=== PATIENT | male | born 1955 | race Caucasian/White ===

== ENCOUNTER 2018-12-23 13:32 | Inpatient (IN) ==
--- NOTE | 2018-12-23 14:35 | Emergency Department Note ---
Disposition Clinical Impression: Anasarca, Acute on chronic diastolic (congestive) heart failure Disposition: Admitted As Inpatient Condition: Fair General Adult HPI - General Chief complaint: ED General Medical Stated complaint: CHF/SOB/CP sent from Internal Med. Time Seen by Provider: 12/23/18 13:56 Source: patient, family Nursing Notes Reviewed: Yes Vital Signs Reviewed: Yes - History of Present Illness HPI Narrative: 63-year-old male who presents the emergency department with complaints of peripheral edema. The patient states this has been ongoing for the last several weeks. He states he was released from rehabilitation and has been taking his water pill and fluid restriction as indicated but has gained approximately 14 pounds in the last couple of months. He states he has significant swelling in his legs, abdomen and feels increasingly more short of breath. He has orthopnea but is otherwise been eating and drinking well. He denies any fever, chest pain, abdominal pain, nausea, vomiting, dysuria, hematuria. Pain Scale: 3 - Related Data Home Medications Medication Instructions Recorded Confirmed Aspirin Enteric Coated [Aspirin EC] 81 mg PO DAILY PRN 03/12/16 12/23/18 Cyclobenzaprine HCl 5 mg PO TID PRN 03/12/16 12/23/18 Nitroglycerin 0.4 mg SL AD PRN 03/12/16 12/23/18 Atorvastatin [Lipitor] 40 mg PO HS 03/15/18 12/23/18 Cilostazol [Pletal] 100 mg PO BID 03/15/18 12/23/18 Lisinopril [Zestril] 20 mg PO DAILY 03/15/18 12/23/18 Isosorbide MONOnitrate (24 HR) 30 mg PO DAILY 11/18/18 12/23/18 [Imdur] FLUoxetine HCl [Sarafem] 20 mg PO DAILY 12/23/18 12/23/18 Previous Rx's Medication Instructions Recorded Furosemide [Lasix] 40 mg PO BID #60 tablet 11/20/18 Metoprolol [Lopressor] 25 mg PO BID #60 tablet 11/20/18 Allergies Allergy/AdvReac Type Severity Reaction Status Date / Time No Known Allergies Allergy Verified 12/23/18 17:27 Review of Systems: ROS per history of present illness, all other systems reviewed and negative or normal. All systems ED: reviewed and negative except as stated. Review of Systems: As Per HPI Past Medical History - Past Medical History Medical history: Reports: aortic aneurysm, atrial fibrillation, CHF, COPD, coronary artery disease, CVA, diabetes, GERD, hyperlipidemia, hypertension, myocardial infarction, peripheral artery disease, SVT, other Surgical history: Reports: angioplasty/stent, appendectomy, knee replacement, orthopedic, other, pacemaker/AICD, other Psychiatric history: Reports: no psych history - Social History Smoking Status: Former smoker Smokeless Tobacco Status: No Alcohol use: Reports: rarely Drug use: Reports: none Physical Exam General: Conversant. No apparent distress. Follow commands. Appears stated age. Neck: No JVD. Trachea midline. Neck supple. Eyes: PERRL. No scleral icterus. HENT: Normocephalic and atraumatic. Moist mucus membranes. Cardiovascular: Regular rate and rhythm. Normal S1 and S2. No murmurs apprecia jermaine. Normal capillary refill. Extremities well perfused with 2+ distal pulses bilaterally. No edema. Pulmonary: Crackles in bilateral bases. Not in respiratory distress. Speaks in full sentences. Abdomen: Soft,distended abdomen with midline healed incision. Neuro: Alert and oriented x3. No slurred speech. No focal deficits noted. Skin: No rashes noted on visualized skin. Musculoskeletal: No bony abnormalities visualized. Moves all extremities. Psych: Normal mood. Pleasant. Makes appropriate eye contact. - General General appearance: alert Course Vital Signs Temperature 98.4 F 12/23/18 13:41 Pulse Rate 69 12/23/18 13:41 Respiratory Rate 22 12/23/18 13:41 Blood Pressure 96/60 12/23/18 13:41 O2 Sat by Pulse Oximetry 85 12/23/18 13:41 Temperature 97.2 F L 12/23/18 23:16 Pulse Rate 68 12/23/18 23:16 Respiratory Rate 16 12/23/18 23:16 Blood Pressure 114/61 12/23/18 23:16 O2 Sat by Pulse Oximetry 99 12/23/18 23:16 Oxygen Delivery Oxygen Delivery Nasal Cannula Medical Decision Making - [facility] Narrative Medical decision making narrative: 63-year-old male with history of CHF who presents emergency Department with complaints of peripheral edema and abdominal distention. The patient states he has gained significant weight over the past month. On arrival he does have abdominal distention and edema with significant peripheral edema. His vital signs are otherwise stable. He is not requiring supplemental oxygen and above his baseline. Did obtain hemoglobin and hematocrit, PTT/INR and BMP and troponin. He does have baseline anemia, not significantly changed today. There is no elevation in his troponin. Chest x-ray shows pulmonary edema. The patient was intermittently hypotensive but improved to systolic in the 110s without significant intervention. The patient was given 20 mg IV Lasix for suspected CHF exacerbation. Discussed case with on-call hospitalist Dr. Addison who agrees with plan for admission and accepts the patient to the inpatient service. Patient agrees with and understands course of treatment plan including plan for admission. All questions answered. - Medical Records Medical records reviewed: Yes I reviewed the patient's medical records. - Lab Data Lab results reviewed: Yes I reviewed the patient's lab results. Result diagrams: 12/23/18 14:22 12/23/18 14:06 Lab Results 12/23/18 12/23/18 12/23/18 Range/Units 14:06 14:22 15:50 Hgb 8.8 L (12.9-16.9) g/dL Hct 30.3 L (37.5-50.1) % Sodium 133 L (136-145) mEq/L Potassium 4.3 (3.5-5.1) mEq/L Chloride 95 L (98-107) mEq/L Carbon Dioxide 31 H (23-29) mEq/L BUN 9 (8-23) mg/dL Creatinine 0.72 (0.70-1.30) mg/dL Est GFR ( Amer) > 60 (> 60) Est GFR (Non-Af Amer) > 60 (> 60) BUN/Creatinine Ratio 13 (6-26) Glucose 144 H (70-105) mg/dL Calculated Osmolality 277 L (280-300) Calcium 8.8 (8.6-10.3) mg/dL Magnesium 1.9 (1.6-2.6) mg/dL Ammonia 40 (16-53) mcmol/L - Radiology Data Radiology results reviewed: Yes I reviewed the patient's radiology results. Chest X-Ray 12/23/18 14:05 IMPRESSION: 1. Findings of pulmonary edema with small right pleural effusion and mild right basilar atelectasis. D/ / 12/23/2018 14:28:29 Javi Chawla MD / randall Interpreting Provider: Javi Chawla MD - EKG Data EKG #1 EKG attestation: Yes I reviewed and interpreted this EKG. EKG results narrative: History patient rhythm rate of 62. Negative scarbossa. No change when compared with prior from 11/18/18.
[2018-12-23 14:59] LABS: BUN/Creatinine Ratio 13 (6-26); Blood Urea Nitrogen 9 mg/dL (8-23); Calcium 8.8 mg/dL (8.6-10.3); Carbon Dioxide 31 mEq/L (23-29); Chloride 95 mEq/L (98-107); Glucose 144 mg/dL (70-105); Magnesium 1.9 mg/dL (1.6-2.6); Osmolality,Calculated 277 (280-300); Potassium 4.3 mEq/L (3.5-5.1); Sodium 133 mEq/L (136-145); eGFR For Non-African Americans > 60 (> 60)
[2018-12-23] MEDS ORDERED: Furosemide 20 MG/2 ML VIAL IVP ONE (15:19)
[2018-12-23 15:36] LABS: Hematocrit 30.3 % (37.5-50.1); Hemoglobin 8.8 g/dL (12.9-16.9)
[2018-12-23] MEDS ORDERED: Naloxone 0.4 MG/ML INJ IVP PRN (17:20)
--- NOTE | 2018-12-23 17:23 | Emergency Department Note ---
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 Time Seen by Provider: 12/23/18 13:56 Source: patient, family - History of Present Illness Pain Scale: 3 - Related Data Home Medications Medication Instructions Recorded Confirmed Aspirin Enteric Coated [Aspirin EC] 81 mg PO DAILY 03/12/16 11/18/18 Cyclobenzaprine HCl 5 mg PO TID PRN 03/12/16 11/18/18 Nitroglycerin 0.4 mg SL AD PRN 03/12/16 11/18/18 Atorvastatin [Lipitor] 40 mg PO HS 03/15/18 11/18/18 Cilostazol [Pletal] 100 mg PO BID 03/15/18 11/18/18 FLUoxetine HCl [Fluoxetine HCl] 20 mg PO DAILY 03/15/18 11/18/18 Lisinopril [Zestril] 20 mg PO DAILY 03/15/18 11/18/18 Isosorbide MONOnitrate (24 HR) 30 mg PO DAILY 11/18/18 11/18/18 [Imdur] Previous Rx's Medication Instructions Recorded Furosemide [Lasix] 40 mg PO BID #60 tablet 11/20/18 Metoprolol [Lopressor] 25 mg PO BID #60 tablet 11/20/18 Allergies Allergy/AdvReac Type Severity Reaction Status Date / Time No Known Allergies Allergy Verified 03/31/16 09:01 Past Medical History - Past Medical History Medical history: Reports: aortic aneurysm, atrial fibrillation, CHF, COPD, [place] artery disease, CVA, diabetes, GERD, hyperlipidemia, hypertension, myocardial infarction, peripheral artery disease, SVT, other Surgical history: Reports: angioplasty/stent, appendectomy, knee replacement, orthopedic, other, pacemaker/AICD, other Psychiatric history: Reports: no psych history - Social History Smoking Status: Former smoker Smokeless Tobacco Status: No Alcohol use: Reports: rarely Drug use: Reports: none Physical Exam - General General appearance: alert Course Vital Signs Temperature 98.4 F 12/23/18 13:41 Pulse Rate 69 12/23/18 13:41 Respiratory Rate 22 12/23/18 13:41 Blood Pressure 96/60 12/23/18 13:41 O2 Sat by Pulse Oximetry 85 12/23/18 13:41 Temperature 98.4 F 12/23/18 13:41 Pulse Rate 68 12/23/18 17:01 Respiratory Rate 18 12/23/18 17:01 Blood Pressure 110/72 12/23/18 17:01 O2 Sat by Pulse Oximetry 98 12/23/18 17:01 Oxygen Delivery Oxygen Delivery Nasal Cannula Medical Decision Making - Lab Data Result diagrams: 12/23/18 14:22 12/23/18 14:06 Lab Results 12/23/18 12/23/18 12/23/18 Range/Units 14:06 14:22 15:50 Hgb 8.8 L (12.9-16.9) g/dL Hct 30.3 L (37.5-50.1) % Sodium 133 L (136-145) mEq/L Potassium 4.3 (3.5-5.1) mEq/L Chloride 95 L (98-107) mEq/L Carbon Dioxide 31 H (23-29) mEq/L BUN 9 (8-23) mg/dL Creatinine 0.72 (0.70-1.30) mg/dL Est GFR ( Amer) > 60 (> 60) Est GFR (Non-Af Amer) > 60 (> 60) BUN/Creatinine Ratio 13 (6-26) Glucose 144 H (70-105) mg/dL Calculated Osmolality 277 L (280-300) Calcium 8.8 (8.6-10.3) mg/dL Magnesium 1.9 (1.6-2.6) mg/dL Ammonia 40 (16-53) mcmol/L Attestation Statement - Attestation Attestation: I examined this patient and my medical decision-making was reviewed with the Resident Physician. I agree with the documented findings, disposition and treatment plan as described except to the extent set forth below. Severity protuberant abdomen in patient with long history of issues with anasarca. Diagnostics reviewed. Accepted for admission by hospitalist.
[2018-12-23] MEDS ORDERED: D5% in Water 1,000 ML IVC PRN (17:24)
[2018-12-23] MEDS ORDERED: Dextrose Gel 15 GM/37.5 ML TUBE PO PRN ×2 (17:24)
[2018-12-23] MEDS ORDERED: *HR* Dextrose 50 % in Water (Syg) 50 ML SYRINGE IVP PRN (17:24)
--- NOTE | 2018-12-23 17:47 | Internal Med History&Physical ---
Date of Encounter: 12/23/18 Time of Encounter: 17:43 Internal Medicine - H&P: HPI Chief complaint: shortness of breath. Admitted From: Home Plans for Post Hospital Care: Home History of present illness: Mr. Love is a 63 year old male PMH of aortic aneurysm, atrial fibrillation, chronic diastolic CHF, COPD, coronary artery disease, CVA, diabetes, GERD, hyperlipidemia, hypertension and peripheral artery disease patient presented to ER complaining progressive shortness of breath, increase abdominal girth and worsening edema or the lower extremity for the past 9 days. The patient also report weight gain of about 16-18 pounds for the past couple of months. Reports being compliant with his medications, diet and fluid restriction. Denies chest pain, nausea, or vomiting. Reports abdominal discomfort due to the fluids build up. Past Med Surg Social Fam HX - Past Medical History Medical history: aortic aneurysm, atrial fibrillation, CHF, COPD, coronary artery disease, CVA, diabetes, GERD, hyperlipidemia, hypertension, myocardial infarction, peripheral artery disease, SVT, other Additional medical history: Ablation Cardiac, WPW Psychiatric history: no psych history - Past Surgical History Surgical History: angioplasty/stent, appendectomy, knee replacement, orthopedic, other, pacemaker/AICD, other Additional surgical history: R. Ankle plate. Bilateral Leg Stents - Social History Smoking Status: Former smoker Smokeless Tobacco Status: No Alcohol use: rarely Drug use: none - Family History Mother Adopted: No Family Member Ethnicity: Non- Living Status: Hx Family Cardiac Disorders: Yes Hx Family Respiratory Disorders: Yes Hx Family Cancer: No Hx Family GI Disorders: No Hx Family Endocrine Disorder: Yes Hx Family Neuromuscular Disorders: No Hx Family Neurologic Disorders: No Hx Family HEENT Disorders: No Hx Family Autoimmune Disorders: No Father Adopted: No Family Member Ethnicity: Non- Living Status: Hx Family Cardiac Disorders: Yes Hx Family Respiratory Disorders: No Hx Family Cancer: No Hx Family GI Disorders: No Hx Family Endocrine Disorder: No Hx Family Neuromuscular Disorders: No Hx Family Neurologic Disorders: No Hx Family HEENT Disorders: No Hx Family Autoimmune Disorders: No Internal Medicine - H&P: Meds Aspirin Enteric Coated [Aspirin EC] 81 mg PO DAILY PRN 03/12/16 [History] Cyclobenzaprine HCl 5 mg PO TID PRN 03/12/16 [History] Nitroglycerin 0.4 mg SL AD PRN 03/12/16 [History] Atorvastatin [Lipitor] 40 mg PO HS 03/15/18 [History] Cilostazol [Pletal] 100 mg PO BID 03/15/18 [History] Lisinopril [Zestril] 20 mg PO DAILY 03/15/18 [History] Isosorbide MONOnitrate (24 HR) [Imdur] 30 mg PO DAILY 11/18/18 [History] Furosemide [Lasix] 40 mg PO BID #60 tablet 11/20/18 [Rx] Metoprolol [Lopressor] 25 mg PO BID #60 tablet 11/20/18 [Rx] FLUoxetine HCl [Sarafem] 20 mg PO DAILY 12/23/18 [History] Allergy/AdvReac Type Severity Reaction Status Date / Time No Known Allergies Allergy Verified 12/23/18 17:27 All Systems PM: A 10-system review of systems was performed and is negative for pertinent findings except as documented above in the HPI. - Constitutional Constitutional: weakness, no chills, no fever(s), no lethargy - EENT Eyes: no irritation, no pain Nose, mouth and throat: no mouth lesions, no sore throat - Cardiovascular Cardiovascular ROS IM: dyspnea, dyspnea on exertion, edema, orthopnea, no chest pain, no diaphoresis, no irregular heart rhythm, no lightheadedness, no palpitations - Respiratory Respiratory: no cough, no wheezing, no pain on inspiration, no chest congestion - Gastrointestinal Gastrointestinal: abdominal pain (discomfort ), no nausea, no vomiting - Genitourinary Genitourinary ROS male: no dysuria, no nocturia, no urinary frequency, no urinary incontinence - Musculoskeletal Musculoskeletal ROS IM: no muscle cramps, no stiffness - Integumentary Integumentary IM: no erythema, no jaundice - Neurological Neurological ROS: no abnormal hearing, no headache(s) - Psychiatric Psychiatric: no difficulty concentrating, no hallucinations - Endocrine Endocrine IM: no cold intolerance, no polydipsia, no polyphagia, no polyuria - Hematologic/Lymphatic Hematologic/Lymphatic: no lymphadenopathy - Allergic/Immunologic Allergic/Immunologic: no GI upset with certain foods Additional comments: Rest of 10 review of system negative - Constitutional Vitals: Temp Pulse Resp BP Pulse Ox 98.4 F 68 18 110/72 98 12/23/18 13:41 12/23/18 17:01 12/23/18 17:01 12/23/18 17:01 12/23/18 17:01 Exam: Vitals: Reviewed General: Alert and oriented x4. In mild distress due to shortness of breath HEENT: EOM, pupils equal, round and reactive. Cardiovascular: RRR, normal S1 & S2, no rubs, murmurs or gallops. Lungs: mild crackles at the bases b/l, no wheezing or rales. Abdomen: Distended, tight, non-tender, no rigidity. minimal shifting dullness. Extremities: 3+ edema. Chronic skin changes in the lower extremities bilateral Neurological: Normal cognition and motor skills. Rest of the physical exam is non contributory Internal Med - H&P Results - Labs CBC & Chem 7: 12/23/18 14:22 12/23/18 14:06 Labs: Short CBC 12/23/18 Range/Units 14:22 Hgb 8.8 L (12.9-16.9) g/dL Hct 30.3 L (37.5-50.1) % BMP 12/23/18 14:06 Sodium 133 L Potassium 4.3 Chloride 95 L Carbon Dioxide 31 H BUN 9 Creatinine 0.72 Glucose 144 H Calcium 8.8 - Impressions ITS Impressions Chest X-Ray 12/23/18 14:05 IMPRESSION: 1. Findings of pulmonary edema with small right pleural effusion and mild right basilar atelectasis. D/ / 12/23/2018 14:28:29 Javi Chawla MD / randall Interpreting Provider: Javi Chawla MD - Diagnostic Studies Chest x-ray Status: image reviewed by me (pulmonary vascular congestion favoring pulmonary edema ) - Assessment and Plan (1) CHF exacerbation Current Visit: No Status: Acute Assessment and plan: patient presenting with shortness of breath, edema, crackles on auscultation and weight gain. chest x-ray: 1. Findings of pulmonary edema with small right pleural effusion and mild right basilar atelectasis. Plan: IV diruresis with furosemide 40mg/IV BID strict intake and output water restriction to 1.5 litters a day. daily weight 2 gram sodium diet resume ACEs when BP tolerates it. low dose bb Qualifiers: Heart failure type: diastolic Qualified Code(s): I50.33 - Acute on chronic diastolic (congestive) heart failure (2) Anasarca Current Visit: Yes Status: Acute Assessment and plan: possible due to CHF. Patient with a Hx of alcohol abuse with significant abdominal distention. US abdomen ordered. (3) DM2 (diabetes mellitus, type 2) Current Visit: No Status: Chronic Assessment and plan: Patient not on any hypoglycemic agents as outpatient. started on levemir 10 units HS plus lispro low dose sliding scale ac. carb controlled diet. 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 started on bronchodilators Q4RT PRN. incentive spirometry. Qualifiers: COPD type: emphysema Emphysema type: panlobular Qualified Code(s): J43.1 - Panlobular emphysema (6) Hypertension Current Visit: No Status: Chronic Assessment and plan: BP running in the low 100s. hold isosorbide and lisinopril. will continue furosemide 40mg/IV BID and metoprolol. Qualifiers: Hypertension type: essential hypertension Qualified Code(s): I10 - Essential (primary) hypertension (7) HLD (hyperlipidemia) Current Visit: Yes Status: Chronic Assessment and plan: continue atorvastatin 40mg/PO daily. Qualifiers: Hyperlipidemia type: unspecified Qualified Code(s): E78.5 - Hyperlipidemia, unspecified (8) A-fib Current Visit: Yes Status: Chronic Assessment and plan: rate controlled on metoprolol. on Aspirin for secondary stroke prevention Qualifiers: Atrial fibrillation type: paroxysmal Qualified Code(s): I48.0 - Paroxysmal atrial fibrillation - Time Spent With Patient Total time spent is greater than 50% in coordination of care (as documented) at patient's floor/unit and/or counseling patient: Greater than 35 minutes (45)
[2018-12-23] MEDS ORDERED: Ipratropium/Albuterol Neb 3 ML IH PRN (18:03)
[2018-12-23 18:15] LABS: INR 1.4; Prothrombin Time 15.6 Seconds (9.4-12.1)
[2018-12-23 18:18] LABS: Activated Partial Thrombo Time 39.2 Seconds (26.0-36.0)
[2018-12-23] MEDS ORDERED: Furosemide 40 MG/4 ML VIAL IVP SCH (20:00)
[2018-12-23] MEDS: *HR* Heparin 5,000 UNIT/ML VIAL SQ SCH (21:40)
[2018-12-23] MEDS: Insulin DETEMIR 100 UNIT/ML X5UNITS SQ SCH (21:40)
[2018-12-23] MEDS: Furosemide 40 MG/4 ML VIAL IVP SCH (21:46)
[2018-12-24] MEDS: *HR* Heparin 5,000 UNIT/ML VIAL SQ SCH ×3 (05:48→20:13)
[2018-12-24] MEDS: traMADol 50 MG TABLET PO PRN (05:59)
[2018-12-24 06:45] LABS: Basophils # 0.1 K/mcL (0.0-0.2); Eosinophils # 0.3 K/mcL (0.0-0.6); Eosinophils % 4.8 %; Hematocrit 28.3 % (37.5-50.1); Hemoglobin 8.3 g/dL (12.9-16.9); Immature Granulocytes % 0.6 % (0-4); Lymphocytes # 0.4 K/mcL (0.6-4.6); Lymphocytes % 6.3 %; Mean Corpuscular HGB Conc 29.3 g/dL (31.6-35.5); Mean Corpuscular Hemoglobin 24.8 pg (28.0-33.3); Mean Platelet Volume 10.2 fL (9.4-12.4); Monocytes # 0.6 K/mcL (0.0-1.3); Monocytes % 9.8 %; Neutrophils # 4.9 K/mcL (1.6-8.9); Platelet Count 118 K/mcL (140-400); Red Blood Count 3.35 M/mcL (4.19-5.50); Red Cell Distribution Width 16.8 % (11.5-14.5); Segmented Neutrophils % 77.5 %
[2018-12-24 06:47] LABS: Mean Corpuscular Volume 84.5 fL (83.0-100.0)
[2018-12-24 07:02] LABS: BUN/Creatinine Ratio 15 (6-26); Blood Urea Nitrogen 10 mg/dL (8-23); Calcium 8.7 mg/dL (8.6-10.3); Carbon Dioxide 32 mEq/L (23-29); Chloride 95 mEq/L (98-107); Glucose 135 mg/dL (70-105); Magnesium 1.8 mg/dL (1.6-2.6); Osmolality,Calculated 273 (280-300); Phosphorous 3.3 mg/dL (2.7-4.5); Potassium 4.3 mEq/L (3.5-5.1); Sodium 131 mEq/L (136-145); eGFR For Non-African Americans > 60 (> 60)
[2018-12-24] MEDS: Insulin LISPRO 300 UNITS/3 ML VIAL SQ SCH ×3 (08:31→17:00)
[2018-12-24] MEDS ORDERED: Metoprolol XL (24 HR) Succ 25 MG TAB.ER.24H PO SCH (09:00)
[2018-12-24] MEDS: Aspirin Enteric Coated 81 MG Tablet PO SCH (09:19)
[2018-12-24] MEDS: Furosemide 40 MG/4 ML VIAL IVP SCH ×2 (09:20→17:08)
[2018-12-24] MEDS ORDERED: Nitroglycerin 0.4 MG TAB.SUBL SL PRN (12:49)
--- NOTE | 2018-12-24 12:59 | Internal Med Progress Note ---
Hospitalist Progress Note - Encounter Date of Encounter: 12/24/18 Time of Encounter: 12:55 - Subjective Interval History: Pt seen and examined at bedside. Sitting in bed and eating lunch. Reports improvement in breathing since hospitalization. States he has noted a gradual increase in his stomach distention for the last two years. Reports of being on 2L NC at home and is compliant with his home medications. Currently denies any chest pain, sob, abd pain, n/v, fever, or chills. Ten point ROS is negative except as listed above. No overnight events reported. - Exam Vitals: Temp Pulse Resp BP Pulse Ox 98.3 F 73 17 113/65 100 12/24/18 11:12 12/24/18 11:12 12/24/18 11:12 12/24/18 11:12 12/24/18 11:12 Exam: General: Alert and oriented x 3, in no acute distress, morbidly obese HEENT: EOMI, PERRLA, no scleral icterus, normal conjunctiva bilaterally Cardiovascular: RRR, normal S1 & S2, no rubs, murmurs or gallops. Lungs: diffuse rales, no wheezing Abdomen: Distended, tight, non-tender, no rigidity, midline healed scar secondar y to AAA repair Extremities: 3+ edema. Chronic skin changes in the lower extremities bilaterally Neurological: Normal cognition and motor skills. Rest of the physical exam is non contributory - Assessment and Plan (1) CHF exacerbation Current Visit: No Status: Acute Assessment and Plan: Acute on chronic CHF exacerbation 2D echo from 11/18/18 reported LVEF of 50%, indeterminate diastolic function,mild mitral regurgitation, mild-moderate tricuspid regurgitation, mild pulmonary hypertension will continue Lasix 40mg IV BID RN requested to enforce strict I/Os check daily weights Fluid restriction diet (1.5L/day) continue home medications tele monitoring will closely monitor respiratory status (2) Anasarca Current Visit: Yes Status: Acute Assessment and Plan: Likely secondary to underlying CHF decompensation however given alcohol abuse hx, Abdominal US was ordered ABD US reported: Some biliary sludge and gallbladder wall thickening present suspected to be due to chronic cholecystitis. Heterogeneous echogenicity of the liver with mildly lobular contour. Mild hepatocellular disease suspected. Mild splenomegaly. Significantly dilated common duct. Small amount of ascites. Moderate abdominal aortic aneurysm which has increased in size since 2016 No acute intervention needed as pt is not jaundiced or complaining of any abdominal discomfort. Pt advised to follow up with GI as outpatient (3) COPD (chronic obstructive pulmonary disease) Current Visit: No Status: Chronic Assessment and Plan: Not in acute exacerbation continue bronchodilator support as needed incentive spirometry encouraged (4) Hypertension Current Visit: No Status: Chronic Assessment and Plan: BP within acceptable range continue home medications hold BP meds for SBP<100 closely monitor BP (5) DM2 (diabetes mellitus, type 2) Current Visit: No Status: Chronic Assessment and Plan: Sliding scale insulin algorithm as needed monitor FS and BG ADA diet (6) HLD (hyperlipidemia) Current Visit: Yes Status: Chronic Assessment and Plan: continue home dose of Lipitor (7) A-fib Current Visit: Yes Status: Chronic Assessment and Plan: Rate controlled with Metoprolol not on anticoagulation continue home dose of Aspirin (8) DVT prophylaxis Current Visit: No Status: Chronic Assessment and Plan: Heparin SQ - Time Spent with Patient Total time spent is greater than 50% in coordination of care (as documented) at patient's floor/unit and/or counseling patient: 25 - 35 minutes Plan of Care Discussed with: patient (patient/RN) Internal Medicine: Result - Labs CBC & Chem 7: 12/24/18 06:06 12/24/18 06:06 Labs: Short CBC 12/23/18 12/24/18 Range/Units 14:22 06:06 WBC 6.3 (4.3-11.1) K/mcL Hgb 8.8 L 8.3 L (12.9-16.9) g/dL Hct 30.3 L 28.3 L (37.5-50.1) % Plt Count 118 L (140-400) K/mcL Neutrophils # 4.9 (1.6-8.9) K/mcL BMP 12/23/18 12/24/18 14:06 06:06 Sodium 133 L 131 L Potassium 4.3 4.3 Chloride 95 L 95 L Carbon Dioxide 31 H 32 H BUN 9 10 Creatinine 0.72 0.66 L Glucose 144 H 135 H Calcium 8.8 8.7 Cardiac Enzymes 12/23/18 12/23/18 12/24/18 Range/Units 17:43 23:01 06:06 Troponin I < 0.03 < 0.03 < 0.03 (< 0.04) ng/mL - ABG Interpretation ABG results: PT/INR, D-dimer PT 15.6 Seconds (9.4-12.1) H 12/23/18 17:43 - Impressions Impressions Chest X-Ray 12/23/18 14:05 IMPRESSION: 1. Findings of pulmonary edema with small right pleural effusion and mild right basilar atelectasis. D/ / 12/23/2018 14:28:29 Javi Chawla MD / randall Interpreting Provider: Javi Chawla MD Abdomen Ultrasound 12/23/18 17:41 IMPRESSION: Some biliary sludge and gallbladder wall thickening present suspected to be due to chronic cholecystitis. Heterogeneous echogenicity of the liver with mildly lobular contour. Mild hepatocellular disease suspected. Mild splenomegaly. Significantly dilated common duct. Small amount of ascites. Moderate abdominal aortic aneurysm which has increased in size since 2016. RECOMMENDATIONS: If the patient is jaundice, MRCP would be recommended for further evaluation of the common duct. Recommend annual follow-up abdominal aortic aneurysm. Reference: J Vasc Surg 2009 Oct;50(4 Suppl):S2-49. D/ / Rakan Gomez MD / Rakan Gomez MD Interpreting Provider: Rakan Gomez MD Consult Discharge Plan - Plan Referrals: Barbara Otero, CHARTER REPRESENTATIVE [Primary Care Provider] - (1) CHF exacerbation Qualifiers: Heart failure type: diastolic Qualified Code(s): I50.33 - Acute on chronic diastolic (congestive) heart failure (3) COPD (chronic obstructive pulmonary disease) Qualifiers: COPD type: emphysema Emphysema type: panlobular Qualified Code(s): J43.1 - Panlobular emphysema (4) Hypertension Qualifiers: Hypertension type: essential hypertension Qualified Code(s): I10 - Essential (primary) hypertension (5) DM2 (diabetes mellitus, type 2) Qualifiers: Diabetes mellitus senior living insulin use: without superintendent container terminal use Diabetes mellitus complication status: without complication Qualified Code(s): E11.9 - Type 2 diabetes mellitus without complications (6) HLD (hyperlipidemia) Qualifiers: Hyperlipidemia type: unspecified Qualified Code(s): E78.5 - Hyperlipidemia, unspecified (7) A-fib Qualifiers: Atrial fibrillation type: paroxysmal Qualified Code(s): I48.0 - Paroxysmal atrial fibrillation
[2018-12-24] MEDS: FLUoxetine 20 MG CAPSULE PO SCH (13:25)
[2018-12-24] MEDS: Isosorbide MONOnitrate (24 HR) 30 MG TAB.ER.24H PO SCH (13:25)
[2018-12-24] MEDS: Insulin DETEMIR 100 UNIT/ML X5UNITS SQ SCH (20:13)
[2018-12-25 05:00] LABS: Basophils # 0.1 K/mcL (0.0-0.2); Basophils % 0.9 %; Eosinophils # 0.3 K/mcL (0.0-0.6); Eosinophils % 5.3 %; Hematocrit 28.5 % (37.5-50.1); Hemoglobin 8.3 g/dL (12.9-16.9); Immature Granulocytes % 0.8 % (0-4); Lymphocytes # 0.5 K/mcL (0.6-4.6); Lymphocytes % 9.6 %; Mean Corpuscular HGB Conc 29.1 g/dL (31.6-35.5); Mean Corpuscular Hemoglobin 24.6 pg (28.0-33.3); Mean Corpuscular Volume 84.3 fL (83.0-100.0); Mean Platelet Volume 10.5 fL (9.4-12.4); Monocytes # 0.6 K/mcL (0.0-1.3); Monocytes % 12.1 %; Neutrophils # 3.8 K/mcL (1.6-8.9); Platelet Count 116 K/mcL (140-400); Red Blood Count 3.38 M/mcL (4.19-5.50); Segmented Neutrophils % 71.3 %
[2018-12-25 05:14] LABS: BUN/Creatinine Ratio 15 (6-26); Blood Urea Nitrogen 10 mg/dL (8-23); Calcium 8.8 mg/dL (8.6-10.3); Carbon Dioxide 31 mEq/L (23-29); Chloride 94 mEq/L (98-107); Glucose 112 mg/dL (70-105); Magnesium 1.8 mg/dL (1.6-2.6); Osmolality,Calculated 280 (280-300); Phosphorous 3.6 mg/dL (2.7-4.5); Potassium 4.2 mEq/L (3.5-5.1); Sodium 135 mEq/L (136-145); eGFR For Non-African Americans > 60 (> 60)
[2018-12-25] MEDS: *HR* Heparin 5,000 UNIT/ML VIAL SQ SCH ×3 (05:17→20:25)
[2018-12-25] MEDS: FLUoxetine 20 MG CAPSULE PO SCH (09:12)
[2018-12-25] MEDS: Lisinopril 20 MG TABLET PO SCH (09:12)
[2018-12-25] MEDS: Insulin LISPRO 300 UNITS/3 ML VIAL SQ SCH ×3 (09:13→17:27)
[2018-12-25] MEDS: Furosemide 40 MG/4 ML VIAL IVP SCH ×2 (09:13→17:28)
[2018-12-25] MEDS: Isosorbide MONOnitrate (24 HR) 30 MG TAB.ER.24H PO SCH (09:13)
[2018-12-25] MEDS: Aspirin Enteric Coated 81 MG Tablet PO SCH (09:13)
[2018-12-25] MEDS: traMADol 50 MG TABLET PO PRN (09:16)
--- NOTE | 2018-12-25 13:52 | Internal Med Progress Note ---
Hospitalist Progress Note - Encounter Date of Encounter: 12/25/18 Time of Encounter: 13:50 - Subjective Interval History: Patient seen and examined earlier today. Sitting in bed, eating lunch. States he feels better compared to previous day. Currently saturating well on 2LNC. RN requested to assist patient with walking, if needed, will obtain physical therapy evaluation. Pt denies any sob, abd pain,n/v, fever, or chills at this time. No overnight events reported Ten point ROS is negative except as listed above - Exam Vitals: Temp Pulse Resp BP Pulse Ox 97.6 F 86 16 117/67 97 12/25/18 10:57 12/25/18 10:57 12/25/18 10:57 12/25/18 10:57 12/25/18 10:57 Exam: General: Alert and oriented x 3, in no acute distress, morbidly obese HEENT: EOMI, PERRLA, no scleral icterus, normal conjunctiva bilaterally Cardiovascular: RRR, normal S1 & S2, no rubs, murmurs or gallops. Lungs: diffuse rales, no wheezing Abdomen: Distended, tight, non-tender, no rigidity, midline healed scar secondary to AAA repair, normal bowel sounds, no rebound tenderness, no guarding Extremities: 3+ edema. Chronic skin changes in the lower extremities yashira aterally Neurological: Normal cognition and motor skills. Rest of the physical exam is non contributory - Assessment and Plan (1) CHF exacerbation Current Visit: No Status: Acute Assessment and Plan: Acute on chronic CHF exacerbation 2D echo from 11/18/18 reported LVEF of 50%, indeterminate diastolic function,mild mitral regurgitation, mild-moderate tricuspid regurgitation, mild pulmonary hypertension will continue Lasix 40mg IV BID RN requested to enforce strict I/Os check daily weights Fluid restriction diet (1.5L/day) continue home medications tele monitoring will closely monitor respiratory status (2) Anasarca Current Visit: Yes Status: Acute Assessment and Plan: Likely secondary to underlying CHF decompensation however given alcohol abuse hx, Abdominal US was ordered ABD US reported: Some biliary sludge and gallbladder wall thickening present suspected to be due to chronic cholecystitis. Heterogeneous echogenicity of the liver with mildly lobular contour. Mild hepatocellular disease suspected. Mild splenomegaly. Significantly dilated common duct. Small amount of ascites. Moderate abdominal aortic aneurysm which has increased in size since 2016 No acute intervention needed as pt is not jaundiced or complaining of any abdominal discomfort. Pt advised to follow up with GI as outpatient (3) COPD (chronic obstructive pulmonary disease) Current Visit: No Status: Chronic Assessment and Plan: Not in acute exacerbation continue bronchodilator support as needed incentive spirometry encouraged (4) Hypertension Current Visit: No Status: Chronic Assessment and Plan: BP within acceptable range continue home medications hold BP meds for SBP<100 closely monitor BP (5) DM2 (diabetes mellitus, type 2) Current Visit: No Status: Chronic Assessment and Plan: Sliding scale insulin algorithm as needed monitor FS and BG ADA diet (6) HLD (hyperlipidemia) Current Visit: Yes Status: Chronic Assessment and Plan: continue home dose of Lipitor (7) A-fib Current Visit: Yes Status: Chronic Assessment and Plan: Rate controlled with Metoprolol not on anticoagulation continue home dose of Aspirin (8) DVT prophylaxis Current Visit: No Status: Chronic Assessment and Plan: Heparin SQ - Time Spent with Patient Total time spent is greater than 50% in coordination of care (as documented) at patient's floor/unit and/or counseling patient: 25 - 35 minutes (patient/RN) Internal Medicine: Result - Labs CBC & Chem 7: 12/25/18 03:37 12/25/18 03:37 Labs: Short CBC 12/25/18 Range/Units 03:37 WBC 5.3 (4.3-11.1) K/mcL Hgb 8.3 L (12.9-16.9) g/dL Hct 28.5 L (37.5-50.1) % Plt Count 116 L (140-400) K/mcL Neutrophils # 3.8 (1.6-8.9) K/mcL BMP 12/25/18 03:37 Sodium 135 L Potassium 4.2 Chloride 94 L Carbon Dioxide 31 H BUN 10 Creatinine 0.65 L Glucose 112 H Calcium 8.8 - ABG Interpretation ABG results: PT/INR, D-dimer PT 15.6 Seconds (9.4-12.1) H 12/23/18 17:43 - Impressions Impressions Chest X-Ray 12/23/18 14:05 IMPRESSION: 1. Findings of pulmonary edema with small right pleural effusion and mild right basilar atelectasis. D/ / 12/23/2018 14:28:29 Javi Chawla MD / randall Interpreting Provider: Javi Chawla MD Consult Discharge Plan - Plan Referrals: Barbara Otero CASINO SHIFT MANAGER [Primary Care Provider] - (1) CHF exacerbation Qualifiers: Heart failure type: diastolic Qualified Code(s): I50.33 - Acute on chronic diastolic (congestive) heart failure (3) COPD (chronic obstructive pulmonary disease) Qualifiers: COPD type: emphysema Emphysema type: panlobular Qualified Code(s): J43.1 - Panlobular emphysema (4) Hypertension Qualifiers: Hypertension type: essential hypertension Qualified Code(s): I10 - Essential (primary) hypertension (5) DM2 (diabetes mellitus, type 2) 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
--- NOTE | 2018-12-25 14:36 | Electrocardiograph Report ---
[employer] Test Date: 2018-12-23 Pat Name: Marco Love Department: [id number] Room: 3B35 Gender: M Market Editor: : [id number] Requested By: Eugenie Bello Order Number: [id number] Reading MD: Octavio Brooke Measurements Intervals [place] Rate: 62 P: -51 TN: 111 QRS: -82 QRSD: 190 T: 98 QT: 495 QTc: 503 Interpretive Statements Atrial-sensed ventricular-paced rhythm No further analysis attempted due to paced rhythm Baseline wander in lead(s) V6 Electronically Signed On 12-25-2018 14:34:57 EDT by Octavio Brooke
[2018-12-25] MEDS: Insulin DETEMIR 100 UNIT/ML X5UNITS SQ SCH (20:25)
[2018-12-26 05:21] LABS: Basophils # 0.1 K/mcL (0.0-0.2); Eosinophils # 0.3 K/mcL (0.0-0.6); Eosinophils % 5.8 %; Hematocrit 27.3 % (37.5-50.1); Hemoglobin 8.1 g/dL (12.9-16.9); Lymphocytes # 0.5 K/mcL (0.6-4.6); Lymphocytes % 9.8 %; Mean Corpuscular HGB Conc 29.7 g/dL (31.6-35.5); Mean Corpuscular Hemoglobin 24.7 pg (28.0-33.3); Mean Corpuscular Volume 83.2 fL (83.0-100.0); Mean Platelet Volume 10.5 fL (9.4-12.4); Monocytes # 0.7 K/mcL (0.0-1.3); Monocytes % 13.3 %; Neutrophils # 3.4 K/mcL (1.6-8.9); Platelet Count 120 K/mcL (140-400); Red Blood Count 3.28 M/mcL (4.19-5.50); Red Cell Distribution Width 16.9 % (11.5-14.5); Segmented Neutrophils % 69.1 %
[2018-12-26 05:41] LABS: BUN/Creatinine Ratio 23 (6-26); Blood Urea Nitrogen 13 mg/dL (8-23); Calcium 8.8 mg/dL (8.6-10.3); Carbon Dioxide 33 mEq/L (23-29); Chloride 94 mEq/L (98-107); Glucose 118 mg/dL (70-105); Magnesium 1.8 mg/dL (1.6-2.6); Osmolality,Calculated 277 (280-300); Phosphorous 3.4 mg/dL (2.7-4.5); Potassium 3.9 mEq/L (3.5-5.1); Sodium 133 mEq/L (136-145); eGFR For Non-African Americans > 60 (> 60)
[2018-12-26] MEDS: *HR* Heparin 5,000 UNIT/ML VIAL SQ SCH ×3 (06:07→20:09)
[2018-12-26] MEDS: Insulin LISPRO 300 UNITS/3 ML VIAL SQ SCH ×3 (08:09→16:49)
[2018-12-26] MEDS: Aspirin Enteric Coated 81 MG Tablet PO SCH (08:13)
[2018-12-26] MEDS: Isosorbide MONOnitrate (24 HR) 30 MG TAB.ER.24H PO SCH (08:13)
[2018-12-26] MEDS: FLUoxetine 20 MG CAPSULE PO SCH (08:13)
[2018-12-26] MEDS: Furosemide 40 MG/4 ML VIAL IVP SCH ×2 (08:14→16:48)
[2018-12-26] MEDS: Lisinopril 20 MG TABLET PO SCH (08:14)
[2018-12-26] MEDS: traMADol 50 MG TABLET PO PRN (13:11)
--- NOTE | 2018-12-26 14:04 | Internal Med Progress Note ---
Hospitalist Progress Note - Encounter Date of Encounter: 12/26/18 Time of Encounter: 14:01 - Subjective Interval History: Patient seen and examined earlier today. As per I walked into patient's room, he was noted of filling his water pitcher with water from the room faucet. Extensive counseling/education was provided in regards to being compliant with his fluid intake. Patient acknowledged understanding however is not willing to comply at this time. States his breathing is significantly improved since hospitalization. LE edema and scrotal edema persist. Denies any chest pain, shortness of breath, abd pain,n/v, fever, or chills at this time. No overnight events reported Ten point ROS is negative except as listed above - Exam Vitals: Temp Pulse Resp BP Pulse Ox 97.7 F 64 16 100/56 98 12/26/18 11:21 12/26/18 11:21 12/26/18 11:21 12/26/18 11:21 12/26/18 11:21 Exam: General: Alert and oriented x 3, in no acute distress, morbidly obese HEENT: EOMI, PERRLA, no scleral icterus, normal conjunctiva bilaterally Cardiovascular: RRR, normal S1 & S2, no rubs, murmurs or gallops. Lungs: equal air entry bilaterally, no rales, no wheezing Abdomen: Distended, tight, non-tender, no rigidity, midline healed scar secondary to AAA repair, normal bowel sounds, no rebound tenderness, no guarding Extremities: 2+ edema. Chronic skin changes in the lower extremities bilaterally Neurological: Normal cognition and motor skills. Rest of the physical exam is non contributory - Assessment and Plan (1) CHF exacerbation Current Visit: No Status: Acute Assessment and Plan: Acute on chronic CHF exacerbation 2D echo from 11/18/18 reported LVEF of 50%, indeterminate diastolic function,mild mitral regurgitation, mild-moderate tricuspid regurgitation, mild pulmonary hypertension will continue Lasix 40mg IV BID for another day, will change to PO lasix in am RN requested to enforce strict I/Os check daily weights Fluid restriction diet (1.5L/day) continue home medications tele monitoring will closely monitor respiratory status extensive counseling/education provided to the patient in regards to being compliant with fluid restriction (2) Anasarca Current Visit: Yes Status: Acute Assessment and Plan: Likely secondary to underlying CHF decompensation however given alcohol abuse hx, Abdominal US was ordered ABD US reported: Some biliary sludge and gallbladder wall thickening present suspected to be due to chronic cholecystitis. Heterogeneous echogenicity of the liver with mildly lobular contour. Mild hepatocellular disease suspected. Mild splenomegaly. Significantly dilated common duct. Small amount of ascites. Moderate abdominal aortic aneurysm which has increased in size since 2016 No acute intervention needed as pt is not jaundiced or complaining of any abdominal discomfort. Pt advised to follow up with GI as outpatient (3) COPD (chronic obstructive pulmonary disease) Current Visit: No Status: Chronic Assessment and Plan: Not in acute exacerbation continue bronchodilator support as needed incentive spirometry encouraged (4) Hypertension Current Visit: No Status: Chronic Assessment and Plan: BP within acceptable range continue home medications hold BP meds for SBP<100 closely monitor BP (5) DM2 (diabetes mellitus, type 2) Current Visit: No Status: Chronic Assessment and Plan: Sliding scale insulin algorithm as needed monitor FS and BG ADA diet (6) HLD (hyperlipidemia) Current Visit: Yes Status: Chronic Assessment and Plan: continue home dose of Lipitor (7) A-fib Current Visit: Yes Status: Chronic Assessment and Plan: Rate controlled with Metoprolol not on anticoagulation continue home dose of Aspirin (8) DVT prophylaxis Current Visit: No Status: Chronic Assessment and Plan: Heparin SQ - Time Spent with Patient Total time spent is greater than 50% in coordination of care (as documented) at patient's floor/unit and/or counseling patient: 25 - 35 minutes Plan of Care Discussed with: patient (patient/RN) Internal Medicine: Result - Labs CBC & Chem 7: 12/26/18 04:30 12/26/18 04:30 Labs: Short CBC 12/26/18 Range/Units 04:30 WBC 5.0 (4.3-11.1) K/mcL Hgb 8.1 L (12.9-16.9) g/dL Hct 27.3 L (37.5-50.1) % Plt Count 120 L (140-400) K/mcL Neutrophils # 3.4 (1.6-8.9) K/mcL BMP 12/26/18 04:30 Sodium 133 L Potassium 3.9 Chloride 94 L Carbon Dioxide 33 H BUN 13 Creatinine 0.57 L Glucose 118 H Calcium 8.8 - ABG Interpretation ABG results: PT/INR, D-dimer PT 15.6 Seconds (9.4-12.1) H 04/19/19 17:43 Consult Discharge Plan - Plan Referrals: Barbara Otero CNP [Primary Care Provider] - (1) CHF exacerbation Qualifiers: Heart failure type: diastolic Qualified Code(s): I50.33 - Acute on chronic diastolic (congestive) heart failure (3) COPD (chronic obstructive pulmonary disease) Qualifiers: COPD type: emphysema Emphysema type: panlobular Qualified Code(s): J43.1 - Panlobular emphysema (4) Hypertension Qualifiers: Hypertension type: essential hypertension Qualified Code(s): I10 - Essential (primary) hypertension (5) DM2 (diabetes mellitus, type 2) Qualifiers: 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
[2018-12-26] MEDS: Insulin DETEMIR 100 UNIT/ML X5UNITS SQ SCH (20:09)
[2018-12-27] MEDS: traMADol 50 MG TABLET PO PRN (02:06)
[2018-12-27 05:07] LABS: Basophils % 0.7 %; Eosinophils # 0.3 K/mcL (0.0-0.6); Hematocrit 27.2 % (37.5-50.1); Hemoglobin 7.9 g/dL (12.9-16.9); Immature Granulocytes % 0.7 % (0-4); Lymphocytes # 0.5 K/mcL (0.6-4.6); Lymphocytes % 9.3 %; Mean Corpuscular Hemoglobin 24.7 pg (28.0-33.3); Mean Platelet Volume 10.3 fL (9.4-12.4); Monocytes # 0.8 K/mcL (0.0-1.3); Monocytes % 15.3 %; Neutrophils # 3.7 K/mcL (1.6-8.9); Platelet Count 118 K/mcL (140-400); Red Cell Distribution Width 16.8 % (11.5-14.5)
[2018-12-27 05:23] LABS: BUN/Creatinine Ratio 17 (6-26); Blood Urea Nitrogen 12 mg/dL (8-23); Carbon Dioxide 36 mEq/L (23-29); Chloride 92 mEq/L (98-107); Glucose 115 mg/dL (70-105); Magnesium 1.8 mg/dL (1.6-2.6); Osmolality,Calculated 277 (280-300); Phosphorous 3.9 mg/dL (2.7-4.5); Potassium 4.2 mEq/L (3.5-5.1); Sodium 133 mEq/L (136-145); eGFR For Non-African Americans > 60 (> 60)
[2018-12-27] MEDS: *HR* Heparin 5,000 UNIT/ML VIAL SQ SCH ×2 (06:16→15:02)
[2018-12-27] MEDS: Insulin LISPRO 300 UNITS/3 ML VIAL SQ SCH ×2 (08:56→11:27)
[2018-12-27] MEDS ORDERED: Furosemide 40 MG TABLET PO SCH (09:00)
[2018-12-27] MEDS: Aspirin Enteric Coated 81 MG Tablet PO SCH (09:08)
[2018-12-27] MEDS: Isosorbide MONOnitrate (24 HR) 30 MG TAB.ER.24H PO SCH (09:08)
[2018-12-27] MEDS: Lisinopril 20 MG TABLET PO SCH (09:08)
[2018-12-27] MEDS: FLUoxetine 20 MG CAPSULE PO SCH (09:08)
[2018-12-27 11:25] VITALS: BP 105/66
--- NOTE | 2018-12-27 13:52 | Discharge Summary ---
- NOTES TO OUTPATIENT PROVIDER Notes to Outpatient Provider: Pt was admitted for CHF exacerbation. Started on IV diuretics, and slowly titrated back to PO lasix. Pt remains noncompliant with fluid and salt restriction. Also noted to have abd US findings concerning for hepatocellular disease, outpatient follow up with GI is recommended. Pt also has chronic scrotal edema and urology follow up with recommended. Pt refused home health services on discharge. Date of Encounter: 12/27/18 Time of Encounter: 13:47 - Discharge Diagnosis (1) CHF exacerbation Priority: Primary Status: Acute Qualifiers: Heart failure type: diastolic Qualified Code(s): I50.33 - Acute on chronic diastolic (congestive) heart failure (2) Anasarca Priority: Secondary Status: Chronic (3) COPD (chronic obstructive pulmonary disease) Priority: Secondary Status: Chronic Qualifiers: COPD type: emphysema Emphysema type: panlobular Qualified Code(s): J43.1 - Panlobular emphysema (4) Hypertension Priority: Secondary Status: Chronic Qualifiers: Hypertension type: essential hypertension Qualified Code(s): I10 - Essential (primary) hypertension (5) DM2 (diabetes mellitus, type 2) Priority: Secondary Status: Chronic Qualifiers: Diabetes mellitus mcc insulin use: without terminal superintendent use Diabetes me llitus complication status: without complication Qualified Code(s): E11.9 - Type 2 diabetes mellitus without complications (6) HLD (hyperlipidemia) Priority: Secondary Status: Chronic Qualifiers: Hyperlipidemia type: unspecified Qualified Code(s): E78.5 - Hyperlipidemia, unspecified (7) A-fib Priority: Secondary Status: Chronic Qualifiers: Atrial fibrillation type: paroxysmal Qualified Code(s): I48.0 - Paroxysmal atrial fibrillation (8) DVT prophylaxis Priority: Secondary Status: Chronic Hospital course: Mr. Love is a 63 year old male with PMH of aortic aneurysm, atrial fibrillation, chronic diastolic CHF, COPD, coronary artery disease, CVA, diabetes, GERD, hyperlipidemia, hypertension and peripheral artery disease who was admitted for management of CHF exacerbation. He was started on IV lasix and also noted to have significantly distended abdomen for which abd US was obtained. ABD US reported concern for hepatocellular disease for which GI follow up was recommended. Pt's respiratory status improved with IV lasix and was slowly transitioned to PO lasix. Daily fluid restriction education was provided but patient continued to refuse to comply. He also refused physical therapy or home health services. Pt is seen and examined today with RN present at bedside. Pt's respiratory status is back to his baseline, saturating well on 2L NC, which is his home dose of oxygen. He is medically stable for discharge to home with outpatient follow up with PCP, cardiology, GI, and urology. Discharge discussed with: patient, nurse, social work Time spent discussing smoking cessation with patient: 3 to 10 minutes - Time Spent with Patient Total time spent providing and/or coordinating discharge services: 25 minutes Time spent: Less than 30 minutes - Discharge Medications Prescriptions: Continue Cyclobenzaprine HCl 5 mg PO TID PRN PRN Reason: MUSCLE SPASMS Nitroglycerin 0.4 mg SL AD PRN PRN Reason: Chest Pain Aspirin Enteric Coated [Aspirin EC] 81 mg PO DAILY PRN PRN Reason: Chest Pain Lisinopril [Zestril] 20 mg PO DAILY Cilostazol [Pletal] 100 mg PO BID Atorvastatin [Lipitor] 40 mg PO HS Isosorbide MONOnitrate (24 HR) [Imdur] 30 mg PO DAILY Furosemide [Lasix] 40 mg PO BID #60 tablet Metoprolol [Lopressor] 25 mg PO BID #60 tablet FLUoxetine HCl [Sarafem] 20 mg PO DAILY Home Medications: Aspirin Enteric Coated [Aspirin EC] 81 mg PO DAILY PRN 03/12/16 [History] Cyclobenzaprine HCl 5 mg PO TID PRN 03/12/16 [History] Nitroglycerin 0.4 mg SL AD PRN 03/12/16 [History] Atorvastatin [Lipitor] 40 mg PO HS 03/15/18 [History] Cilostazol [Pletal] 100 mg PO BID 03/15/18 [History] Lisinopril [Zestril] 20 mg PO DAILY 03/15/18 [History] Isosorbide MONOnitrate (24 HR) [Imdur] 30 mg PO DAILY 11/18/18 [History] Furosemide [Lasix] 40 mg PO BID #60 tablet 11/20/18 [Rx] Metoprolol [Lopressor] 25 mg PO BID #60 tablet 11/20/18 [Rx] FLUoxetine HCl [Sarafem] 20 mg PO DAILY 12/23/18 [History] Allergies/Adverse Reactions: Allergy/AdvReac Type Severity Reaction Status Date / Time No Known Allergies Allergy Verified 12/23/18 17:27 Date of admission: 12/26/18 14:57 Primary care physician: Barbara Otero CNP Consults: 12/27/18 08:46 Consult to Physical Therapy [CONS] Stat Comment: Evaluate, develop and implement POC Reason for Consult: evaluation for discharge Does patient have active BEDREST order?: No Is patient medically & hemodynamically stable?: Yes Patient assessed for mobility or mobilized this visit?: Yes 12/27/18 09:27 Consult to Nurse Navigator [CONS] Routine Comment: CHF Discharging clinician: Carmenza Moody Anticipated date of discharge: 12/27/18 - Constitutional Vitals: Temp Pulse Resp BP Pulse Ox 97.9 F 65 17 105/66 96 12/27/18 11:22 12/27/18 11:22 12/27/18 11:22 12/27/18 11:22 12/27/18 11:22 Exam: General: Alert and oriented x 3, in no acute distress, morbidly obese HEENT: EOMI, PERRLA, no scleral icterus, normal conjunctiva bilaterally Cardiovascular: RRR, normal S1 & S2, no rubs, murmurs or gallops. Lungs: clear to auscultate bilaterally, no rales, no wheezing Abdomen: Distended, tight, non-tender, no rigidity, midline healed scar secondary to AAA repair, normal bowel sounds, no rebound tenderness, no guarding Extremities: LE edema. Chronic skin changes in the lower extremities bilaterally Neurological: Normal cognition and motor skills. Rest of the physical exam is non contributory - Patient Status Disposition: Home, Self-Care Condition: Fair Functional capacity at discharge: uses cane/walker Overall status at discharge: patient is back to baseline - Discharge Instructions Follow Up With: [facility] [Provider Group] (Appointment has been requested. Our offices will call with an appointment time and date. If you do not hear from us, please call [phone] and make an appointment within 5 days.) [facility] [Provider Group] (Appointment has been requested. Our offices will call with an appointment time and date. If you do not hear from us, please call and schedule an appointment within 2 weeks.) [facility] [Provider Group] (Appointment has been requested. Our offices will call with an appointment time and date. If you do not hear from us, please call [phone] and schedule an appointment within 2 weeks ) Barbara Otero CNP [Primary Care Provider] - (Appointment has been requested. Our office will call with an appointment time and date. If you do not hear from us, please call [phone] and request an appointment within 5 days.) Additional Instructions: Please follow up with your primary care physician and cemetery counselor within five days after your discharge from the hospital. Please follow up with urology and GI within one to two weeks after your discharge from the hospital. Aggressive fluid restriction is advised (2L/day) Continue all your home medications as per your primary care physician. Seek medical help if you have difficulty breathing and if chest pain occurs. - Diet and Activity Activity: wear oxygen at all times, wear oxygen at night Diet: diabetic diet, low fat, low cholesterol, low salt diet (fluid restriction diet (2L/day))
== END 2018-12-27 15:25 | disposition home or self-care (01) | DRG 292 ==
LOC: EMEROOARM 13:32 → 3BNU 13:32
PROVIDERS: ADMIT Internal Medicine; ATTEND Internal Medicine

== ENCOUNTER 2019-01-19 14:48 | Inpatient (IN) ==
[2019-01-19] MEDS ORDERED: Isovue-370 500 ML BOTTLE IVP ONE (15:38)
--- NOTE | 2019-01-19 15:56 | Emergency Department Note ---
Disposition Clinical Impression: Low hemoglobin GI bleed Qualifiers: GI bleed type/associated pathology: unspecified gastrointestinal hemorrhage type Qualified Code(s): K92.2 - Gastrointestinal hemorrhage, unspecified Disposition: Admitted As Inpatient Condition: Fair Time of Disposition: 19:58 General Adult HPI - General Stated complaint: CP/JULIA/GI Bleed Time Seen by Provider: 01/19/19 15:00 Source: patient, family Mode of arrival: wheelchair Limitations: no limitations Nursing Notes Reviewed: Yes Vital Signs Reviewed: Yes - History of Present Illness HPI Narrative: 63-year-old male with past medical history of aortic repair, heart surgery, who is coming to the emergency department after he was seen by his nurse practitioner for 4-5 years of dark tarry stools. Patient is also complaining of 1 month of chest pain, increased leg swelling with ulceration. Patient states he fell approximately one month ago, and since then his legs have been swelling and he has been complaining of chest pain. He states that nothing is really worse today than it was yesterday, however his nurse practitioner wanted him to be admitted so she could figure out what was causing the last several years of GI bleeding as well as the last month of symptoms. Patient is also endorsing a 50 pound weight gain over the last year. He states that his diuretic was doubled at today's appointment, however he has been unable to begin taking the new dosage, he denies other medication changes recently. Patient is on 1-2 L of oxygen all the time, he does not report any increased shortness of breath over the last several days. Pain Scale: 5 - Related Data Home Medications Medication Instructions Recorded Confirmed Aspirin Enteric Coated [Aspirin EC] 81 mg PO DAILY PRN 03/12/16 12/23/18 Cyclobenzaprine HCl 5 mg PO TID PRN 03/12/16 12/23/18 Nitroglycerin 0.4 mg SL AD PRN 03/12/16 12/23/18 Atorvastatin [Lipitor] 40 mg PO HS 03/15/18 12/23/18 Cilostazol [Pletal] 100 mg PO BID 03/15/18 12/23/18 Lisinopril [Zestril] 20 mg PO DAILY 03/15/18 12/23/18 Isosorbide MONOnitrate (24 HR) 30 mg PO DAILY 11/18/18 12/23/18 [Imdur] FLUoxetine HCl [Sarafem] 20 mg PO DAILY 12/23/18 12/23/18 Previous Rx's Medication Instructions Recorded Furosemide [Lasix] 40 mg PO BID #60 tablet 11/20/18 Metoprolol [Lopressor] 25 mg PO BID #60 tablet 11/20/18 Allergies Allergy/AdvReac Type Severity Reaction Status Date / Time No Known Allergies Allergy Verified 12/23/18 17:27 Review of Systems: In addition to that documented in the HPI above, the additional ROS was obtained: Constitutional: Denies fevers or chills Eyes: Denies vision changes ENMT: Denies sore throat CV: Reports chest pain Resp: Reports baseline SOB GI: Denies vomiting or diarrhea : Denies painful urination MSK: Denies recent trauma Skin: Reports new rashes on yashira LE with ulceration in several places Neuro: Denies new numbness or tingling or weakness Endocrine: Denies unexpected weight loss Reports 50lb weight gain over the last several months Heme: Denies bleeding disorders Past Medical History - Past Medical History Attestation: Yes The following information was validated with the patient. Medical history: Reports: aortic aneurysm, atrial fibrillation, CHF, COPD, coronary artery disease, CVA, diabetes, GERD, hyperlipidemia, hypertension, myocardial infarction, peripheral artery disease, SVT, other Surgical history: Reports: angioplasty/stent, appendectomy, knee replacement, orthopedic, other, pacemaker/AICD, other Psychiatric history: Reports: no psych history - Social History Smoking Status: Former smoker Smokeless Tobacco Status: No Alcohol use: Reports: rarely (rarely now, heavy in the past) Drug use: Reports: none Physical Exam General: Appears frustrated. Well developed, well nourished. Head: atraumatic, normocephalic. ENT: No conjunctival injection, no scleral icterus. PERRLA. EOMI. Oropharynx non- erythematous. mucous membranes tacky. Neuro: No focal deficits, no speech deficit, no facial droop, mentating well. Pulm: Diffuse wheezes, increased WOB noted with tachypnea Cardio: RRR no m/r/g. Chest not tender to palpation. Abd: Tense, distended, shifting dullness noted. Distant bowel sounds. Extremities: Radial pulses 2+ yashira, yashira LE with 3+ pitting edema, evidence of vascular insufficiency ulcers, flaking skin, erythema Skin: Other than noted above, skin is intact, warm, well perfused Psych: Appropriate mood and affect. Answers questions appropriately. Somewhat cooperative with exam. - General General appearance: alert, in no apparent distress Course Vital Signs Temperature 98.5 F 01/19/19 15:05 Pulse Rate 70 01/19/19 15:05 Respiratory Rate 17 01/19/19 15:05 Blood Pressure 127/64 01/19/19 15:05 O2 Sat by Pulse Oximetry 99 01/19/19 15:05 Temperature 98.1 F 01/19/19 19:13 Pulse Rate 66 01/19/19 19:13 Respiratory Rate 18 01/19/19 19:13 Blood Pressure 111/55 01/19/19 19:13 O2 Sat by Pulse Oximetry 100 01/19/19 18:58 Oxygen Delivery Oxygen Delivery Nasal Cannula Medical Decision Making - MDM Narrative Medical decision making narrative: Patient's hemoglobin was 6.7, patient was given 2 units of packed red blood cells while in the emergency department. He was given 40 mg of Protonix, he was given 50 mg of octreotide. He was admitted to the hospitalist Dr. Glynn, who agreed to accept the patient to his service. A gastroenterology consult was placed, Dr. powers requested a clear liquid diet. Patient was started on clear liquid diet. Patient was given an opportunity to ask questions at bedside and all of their concerns were addressed. Patient verbalized understanding and agreement with plan of care. Pt remained stable while in the department. - Medical Records Medical records reviewed: Yes I reviewed the patient's medical records. - Lab Data Lab results reviewed: Yes I reviewed the patient's lab results. Result diagrams: 01/19/19 15:52 01/19/19 15:52 Lab Results 01/19/19 01/19/19 01/19/19 Range/Units 15:52 15:52 15:52 WBC 6.4 (4.3-11.1) K/mcL RBC 2.88 L (4.19-5.50) M/mcL Hgb 6.7 L (12.9-16.9) g/dL Hct 23.2 L (37.5-50.1) % MCV 80.6 L (83.0-100.0) fL MCH 23.3 L (28.0-33.3) pg MCHC 28.9 L (31.6-35.5) g/dL RDW 18.3 H (11.5-14.5) % Plt Count 112 L (140-400) K/mcL MPV 11.1 (9.4-12.4) fL Immature Gran % 1.7 (0-4) % Seg Neutrophils % 78.6 % Lymphocytes % 6.7 % Monocytes % 8.8 % Eosinophils % 3.4 % Basophils % 0.8 % Neutrophils # 5.0 (1.6-8.9) K/mcL Lymphocytes # 0.4 L (0.6-4.6) K/mcL Monocytes # 0.6 (0.0-1.3) K/mcL Eosinophils # 0.2 (0.0-0.6) K/mcL Basophils # 0.1 (0.0-0.2) K/mcL Hypochromasia Present A (Not Present) PT 15.6 H (9.4-12.1) Seconds INR 1.4 APTT 34.4 (26.0-36.0) Seconds Sodium 135 L (136-145) mEq/L Potassium 4.0 (3.5-5.1) mEq/L Chloride 93 L (98-107) mEq/L Carbon Dioxide 30 H (23-29) mEq/L BUN 16 (8-23) mg/dL Creatinine 0.77 (0.70-1.30) mg/dL Est GFR ( Amer) > 60 (> 60) Est GFR (Non-Af Amer) > 60 (> 60) BUN/Creatinine Ratio 21 (6-26) Glucose 142 H (70-105) mg/dL Calculated Osmolality 284 (280-300) Calcium 9.0 (8.6-10.3) mg/dL Magnesium 1.5 L (1.6-2.6) mg/dL Total Bilirubin 0.6 (0.3-1.0) mg/dL AST 12 L (13-39) Units/L ALT 6 L (7-52) Units/L Alkaline Phosphatase 76 (34-104) Units/L Troponin I < 0.03 (< 0.04) ng/mL Serum Total Protein 6.4 (6.4-8.9) g/dL Albumin 4.1 (3.5-5.7) g/dL Globulin 2.3 L (2.4-3.5) g/dL Albumin/Globulin Ratio 1.8 (1.1-2.2) Stool Occult Bld Scrn (Negative) Blood Type Antibody Screen Crossmatch 01/19/19 01/19/19 Range/Units 15:52 17:00 WBC (4.3-11.1) K/mcL RBC (4.19-5.50) M/mcL Hgb (12.9-16.9) g/dL Hct (37.5-50.1) % MCV (83.0-100.0) fL MCH (28.0-33.3) pg MCHC (31.6-35.5) g/dL RDW (11.5-14.5) % Plt Count (140-400) K/mcL MPV (9.4-12.4) fL Immature Gran % (0-4) % Seg Neutrophils % % Lymphocytes % % Monocytes % % Eosinophils % % Basophils % % Neutrophils # (1.6-8.9) K/mcL Lymphocytes # (0.6-4.6) K/mcL Monocytes # (0.0-1.3) K/mcL Eosinophils # (0.0-0.6) K/mcL Basophils # (0.0-0.2) K/mcL Hypochromasia (Not Present) PT (9.4-12.1) Seconds INR APTT (26.0-36.0) Seconds Sodium (136-145) mEq/L Potassium (3.5-5.1) mEq/L Chloride (98-107) mEq/L Carbon Dioxide (23-29) mEq/L BUN (8-23) mg/dL Creatinine (0.70-1.30) mg/dL Est GFR ( Amer) (> 60) Est GFR (Non-Af Amer) (> 60) BUN/Creatinine Ratio (6-26) Glucose (70-105) mg/dL Calculated Osmolality (280-300) Calcium (8.6-10.3) mg/dL Magnesium (1.6-2.6) mg/dL Total Bilirubin (0.3-1.0) mg/dL AST (13-39) Units/L ALT (7-52) Units/L Alkaline Phosphatase (34-104) Units/L Troponin I (< 0.04) ng/mL Serum Total Protein (6.4-8.9) g/dL Albumin (3.5-5.7) g/dL Globulin (2.4-3.5) g/dL Albumin/Globulin Ratio (1.1-2.2) Stool Occult Bld Scrn Positive A (Negative) Blood Type O POSITIVE Antibody Screen NEGATIVE Crossmatch See Detail - Radiology Data Radiology results reviewed: Yes I reviewed the patient's radiology results. Chest X-Ray 01/19/19 15:12 IMPRESSION: 1. No significant change in mild pulmonary vascular congestion and pulmonary edema as well as small right-sided pleural effusion with underlying atelectasis or infiltrate. D/ / Susanne Brower MD / Susanne Brower MD Interpreting Provider: Susanne Borwer MD Abdomen/Pelvis CT 01/19/19 15:38 IMPRESSION: Moderate to large volume ascites. Peripherally nodular appearance to the liver is suggestive of cirrhosis. Gastrohepatic varices. Dense atherosclerotic calcifications of the aorta and the bilateral iliac vessels. Near complete occlusion of the distal aorta at the bifurcation. Small right adrenal nodule measuring 1.2 cm. Severe degenerative disease of the lumbar spine. Avascular necrosis of the right femoral head. Moderate pleural effusion. Severe atherosclerosis of the aorta and its branches. Near complete occlusion of the aorta at its bifurcation. D/ / Andres Farmer MD / Andres Farmer MD Interpreting Provider: Andres Farmer MD - EKG Data EKG #1 EKG attestation: Yes I reviewed and interpreted this EKG. EKG results narrative: Heart rate 68, rhythm atrial sensed ventricular pacing, axis left. KS 120, QRS 187 and prolonged, QTc 522 and prolonged. No evidence of clinically significant ST elevation or depression, by sgarbossa criteria. No significant difference when compared to prior study from 12/23/2018. Attestation Statement - Attestation Attestation: Resident Attestation: I examined this patient and my medical decision making was reviewed with the Resident Physician. I agree with the documented findings, disposition and treatment plan as described except to the extent set forth below. We independently had [id number] contact with the patient. Patient presented for evaluation of multiple complaints. Patient has significant past medical history including previous AAA repair as well as unspecified liver disease sees with previous CAT scan concerning for cirrhosis and small amount of ascites fluid. Patient does have a previous history of alcohol use. Patient states he was diagnosed with meningitis in the past and thought this might affect his liver but has no other known hepatitis. Patient does have a significantly distended abdomen. States that this has not significantly changed. Patient is significantly frustrated because he states he has been admitted to the hospital as well as been seen by primary care physician and no for out what is wrong with him. He complains of chest pain as well as dark stools and pain in his legs. Patient will undergo further evaluation for chest pain as well as GI bleed.
[2019-01-19 16:05] LABS: Hematocrit 23.2 % (37.5-50.1); Hemoglobin 6.7 g/dL (12.9-16.9); Mean Corpuscular HGB Conc 28.9 g/dL (31.6-35.5)
[2019-01-19 16:06] LABS: Basophils # 0.1 K/mcL (0.0-0.2); Basophils % 0.8 %; Eosinophils # 0.2 K/mcL (0.0-0.6); Eosinophils % 3.4 %; Immature Granulocytes % 1.7 % (0-4); Lymphocytes # 0.4 K/mcL (0.6-4.6); Lymphocytes % 6.7 %; Mean Corpuscular Hemoglobin 23.3 pg (28.0-33.3); Mean Corpuscular Volume 80.6 fL (83.0-100.0); Mean Platelet Volume 11.1 fL (9.4-12.4); Monocytes # 0.6 K/mcL (0.0-1.3); Monocytes % 8.8 %; Platelet Count 112 K/mcL (140-400); Red Blood Count 2.88 M/mcL (4.19-5.50); Red Cell Distribution Width 18.3 % (11.5-14.5); Segmented Neutrophils % 78.6 %
[2019-01-19 16:08] LABS: Hypochromasia Present (Not Present)
[2019-01-19 16:32] LABS: INR 1.4; Prothrombin Time 15.6 Seconds (9.4-12.1)
[2019-01-19 16:35] LABS: Activated Partial Thrombo Time 34.4 Seconds (26.0-36.0)
[2019-01-19 16:51] LABS: Troponin I < 0.03 ng/mL (< 0.04)
[2019-01-19 17:14] LABS: Alanine Aminotransferase 6 Units/L (7-52); Albumin 4.1 g/dL (3.5-5.7); Albumin/Globulin Ratio 1.8 (1.1-2.2); Alkaline Phosphatase 76 Units/L (34-104); Aspartate Amino Transferase 12 Units/L (13-39); BUN/Creatinine Ratio 21 (6-26); Bilirubin,Total 0.6 mg/dL (0.3-1.0); Blood Urea Nitrogen 16 mg/dL (8-23); Carbon Dioxide 30 mEq/L (23-29); Chloride 93 mEq/L (98-107); Globulin 2.3 g/dL (2.4-3.5); Glucose 142 mg/dL (70-105); Magnesium 1.5 mg/dL (1.6-2.6); Osmolality,Calculated 284 (280-300); Sodium 135 mEq/L (136-145); Total Protein 6.4 g/dL (6.4-8.9); eGFR For Non-African Americans > 60 (> 60)
[2019-01-19] MEDS ORDERED: 0.9 % Sodium Chloride 500 ML ONE (18:27)
[2019-01-19] MEDS ORDERED: Pantoprazole 40 MG VIAL IVP ONE (19:07)
[2019-01-19] MEDS ORDERED: Octreotide 50 MCG/ML SYRINGE IVP ONE (19:56)
[2019-01-19] MEDS ORDERED: cefTRIAXone 1,000 MG in Water for inj. (sterile) 20 ML 10 ML IVP ONE (19:57)
[2019-01-19] MEDS ORDERED: *HR* LORazepam 2 MG/ML VIAL IVP PRN (21:16)
[2019-01-19] MEDS ORDERED: Ondansetron 4 MG/2 ML VIAL IVP PRN (21:16)
[2019-01-19] MEDS ORDERED: Naloxone 0.4 MG/ML INJ IVP PRN (21:16)
[2019-01-19] MEDS ORDERED: Nitroglycerin 0.4 MG TAB.SUBL SL PRN (21:29)
[2019-01-19] MEDS: Pantoprazole 40 MG in 0.9 % Sodium Chloride Mini Bag 100 ML IVC SCH (22:28)
[2019-01-19] MEDS: Vitamin B Complex/Vit C/Vit E 1 EACH TABLET PO SCH (22:30)
[2019-01-19] MEDS: Folic Acid 1 MG TABLET PO SCH (22:30)
[2019-01-19] MEDS: Thiamine (B-1) 100 MG TABLET PO SCH (22:31)
[2019-01-19] MEDS: Octreotide 400 MCG in 0.9 % Sodium Chloride 100 ML IVC SCH (22:43)
--- NOTE | 2019-01-19 23:06 | Internal Med History&Physical ---
Date of Encounter: 01/19/19 Time of Encounter: 20:00 Internal Medicine - H&P: HPI Chief complaint: GI bleed Admitted From: Emergency Dept Plans for Post Hospital Care: Home History of present illness: Mr. Love is a 63 year old male who presents to the ER by referral from his PCP for concerns of melena, hematochezia, and significant weight gain over the last several weeks. Workup in ER revealed patient to be profoundly anemic. He appeared to be hemodynamically stable. He had blood transfusion ordered and was admitted to hospitalist service for further workup and care. Upon my assessment of the patient, he has evidence of significant abdominal distention and physical exam findings of ascites. He also has swelling of his lower extremities. He confirms the history of melena, hematochezia, and a 50 pound weight gain over the last few weeks. He denies any hematemesis. He denies any knowledge of known cirrhosis. I reviewed the CT scan report with him and informed him of the findings of cirrhosis. He stated that he had no knowledge of any cirrhosis diagnosis. When asked about his alcohol intake hist ory, he states he used to be a very heavy drinker but that he has been alcohol free for the last 6 weeks. He used to drink upwards of a fifth of hard liquor per day in addition to some beer. He denies any history of any known esophageal varices. I found an old EGD report confirming gastric ulcers. There was no mention of varices at that point. That EGD was done in 2014. Based upon his history of alcohol abuse, cirrhosis, findings of ascites, and relatively new onset melena with hematochezia, I am concerned about variceal bleed. Dr. Perez was contacted by the ER staff and he will proceed with EGD and possible colonoscopy tomorrow. Past Med Surg Social Fam HX - Past Medical History Attestation: Yes The following information was validated with the patient. Source: patient, old records reviewed Medical history: aortic aneurysm, atrial fibrillation, CHF, COPD, coronary artery disease, CVA, diabetes, GERD, hyperlipidemia, hypertension, myocardial infarction, peripheral artery disease, SVT, other Additional medical history: Ablation Cardiac, WPW Psychiatric history: no psych history - Past Surgical History Surgical History: angioplasty/stent, appendectomy, knee replacement, orthopedic, other, pacemaker/AICD, other Additional surgical history: R. Ankle plate. Bilateral Leg Stents - Social History Smoking Status: Former smoker Smokeless Tobacco Status: No Alcohol use: heavy (reports last etoH intake ~ 6 weeks ago) Drug use: none Current living situation: Home Activity Level: Bed bound, Mostly sedentary - Family History Mother Adopted: No Family Member Ethnicity: Non- Living Status: Hx Family Cardiac Disorders: Yes Hx Family Respiratory Disorders: Yes Hx Family Cancer: No Hx Family GI Disorders: No Hx Family Endocrine Disorder: Yes Hx Family Neuromuscular Disorders: No Hx Family Neurologic Disorders: No Hx Family HEENT Disorders: No Hx Family Autoimmune Disorders: No Father Adopted: No Family Member Ethnicity: Non- Living Status: Hx Family Cardiac Disorders: Yes Hx Family Respiratory Disorders: No Hx Family Cancer: No Hx Family GI Disorders: No Hx Family Endocrine Disorder: No Hx Family Neuromuscular Disorders: No Hx Family Neurologic Disorders: No Hx Family HEENT Disorders: No Hx Family Autoimmune Disorders: No Internal Medicine - H&P: Meds Cyclobenzaprine HCl 5 mg PO TID PRN 03/12/16 [History] Nitroglycerin 0.4 mg SL AD PRN 03/12/16 [History] Atorvastatin [Lipitor] 40 mg PO DAILY 03/15/18 [History] Cilostazol [Pletal] 100 mg PO BID 03/15/18 [History] Lisinopril [Zestril] 20 mg PO DAILY 03/15/18 [History] Isosorbide MONOnitrate (24 HR) [Imdur] 30 mg PO DAILY 11/18/18 [History] Furosemide [Lasix] 40 mg PO BID #60 tablet 11/20/18 [Rx] Metoprolol [Lopressor] 25 mg PO BID #60 tablet 11/20/18 [Rx] FLUoxetine HCl [Sarafem] 20 mg PO DAILY 12/23/18 [History] Albuterol Sulfate [Albuterol Inhaler] 2 puff IH Q4-6H PRN 01/19/19 [History] Ferrous Sulfate 325 mg PO BID 01/19/19 [History] Potassium Chloride [K-Tab ER] 20 meq PO DAILY 01/19/19 [History] hydroCHLOROthiazide [Hydrochlorothiazide] 25 mg PO QAM 01/19/19 [History] Allergy/AdvReac Type Severity Reaction Status Date / Time No Known Allergies Allergy Verified 01/19/19 20:30 - Constitutional Constitutional: fatigue, weight gain, no chills, no fever(s), no night sweats - EENT Eyes: no blurry vision, no change in vision Ears: no ear pain, no tinnitus Nose, mouth and throat: no nasal congestion, no sinus pain, no sinus pressure - Cardiovascular Cardiovascular ROS IM: dyspnea, dyspnea on exertion, edema, no chest pain, no lightheadedness, no paroxysmal nocturnal dyspnea - Respiratory Respiratory: dyspnea, chest congestion, change in phlegm color, no cough, no hemoptysis, no excessive phlegm production, no pain with cough - Gastrointestinal Gastrointestinal: bloating, hematochezia, melena, no coffee ground emesis, no heartburn, no hematemesis, no nausea, no vomiting - Genitourinary Genitourinary ROS male: no dysuria, no flank pain, no hematuria - Musculoskeletal Musculoskeletal ROS IM: no arthralgias, no back pain - Integumentary Integumentary IM: no rash, no jaundice - Neurological Neurological ROS: no dizziness, no focal weakness, no frequent falls, no headache(s) - Psychiatric Psychiatric: no anxiety, no depression - Endocrine Endocrine IM: fatigue, no cold intolerance, no heat intolerance, no polydipsia, no polyphagia, no polyuria - Hematologic/Lymphatic Hematologic/Lymphatic: easy bruising - Allergic/Immunologic Allergic/Immunologic: no wheezing, no GI upset with certain foods - Constitutional Vitals: Temp Pulse Resp BP Pulse Ox 98.3 F 62 18 100/53 98 01/19/19 21:40 01/19/19 21:40 01/19/19 21:40 01/19/19 21:40 01/19/19 21:40 General appearance: Present: cooperative, A&O X 3, pleasant, no acute distress, answers questions appropriately Exam: pale, weak, no acute distress, abdomen markedly distended with tense ascites - Head Head exam: Present: atraumatic, normal inspection - Eye Eye exam: Present: EOMI, PERRL. Absent: scleral icterus Pupils: Present: normal accommodation - ENT ENT exam: Present: mucous membranes dry, normal exam, normal oropharynx - Neck Neck exam general surgery: Present: full ROM, supple, trachea midline. Absent: tenderness, nuchal rigidity, thyromegaly - Respiratory Respiratory exam: Present: rales (both bases), respiratory distress (mild), rhonchi. Absent: chest wall tenderness, prolonged expiratory phase, wheezes, tachypnea - Cardiovascular Cardiovascular exam: Present: distant heart sounds, RRR, +S1, +S2. Absent: diastolic murmur, systolic murmur Additional comments: pacer in left upper chest - GI/Abdominal GI/Abdominal exam: Present: distended, hypoactive bowel sounds. Absent: gua rding, rebound, tenderness Additional comments: tense ascites on exam; + shifting dullness - Extremities Exam Extremities exam: Present: full ROM, joint swelling, pedal edema (3+), warm, radial pulses palpable and symmetrical. Absent: calf tenderness, tenderness - Back Exam Back exam: Absent: CVA tenderness (L), CVA tenderness (R) - Neurological Exam Neurological exam: Present: alert, CN II-XII intact, motor sensory deficit, oriented X3, no focal deficits, strengths equal and symetr throughout - Psychiatric Psychiatric exam: Present: normal affect, normal mood - Skin Skin exam: Present: dry, intact, warm Internal Med - H&P Results - Labs CBC & Chem 7: 01/19/19 15:52 01/19/19 15:52 Labs: Short CBC 01/19/19 Range/Units 15:52 WBC 6.4 (4.3-11.1) K/mcL Hgb 6.7 L (12.9-16.9) g/dL Hct 23.2 L (37.5-50.1) % Plt Count 112 L (140-400) K/mcL Neutrophils # 5.0 (1.6-8.9) K/mcL BMP 01/19/19 15:52 Sodium 135 L Potassium 4.0 Chloride 93 L Carbon Dioxide 30 H BUN 16 Creatinine 0.77 Glucose 142 H Calcium 9.0 Cardiac Enzymes 01/19/19 Range/Units 15:52 Troponin I < 0.03 (< 0.04) ng/mL Liver Function 01/19/19 Range/Units 15:52 Total Bilirubin 0.6 (0.3-1.0) mg/dL AST 12 L (13-39) Units/L ALT 6 L (7-52) Units/L Alkaline Phosphatase 76 (34-104) Units/L Albumin 4.1 (3.5-5.7) g/dL - EKG Data -: EKG Interpreted by Myself - EKG Data Prior EKG available for review: no EKG comments: 01/19/19 23:25 Paced rhythm - Impressions ITS Impressions Chest X-Ray 01/19/19 15:12 IMPRESSION: 1. No significant change in mild pulmonary vascular congestion and pulmonary edema as well as small right-sided pleural effusion with underlying atelectasis or infiltrate. D/ / Susanne Brower MD / Susanne Brower MD Interpreting Provider: Susanne Brower MD Abdomen/Pelvis CT 01/19/19 15:38 IMPRESSION: Moderate to large volume ascites. Peripherally nodular appearance to the liver is suggestive of cirrhosis. Gastrohepatic varices. Dense atherosclerotic calcifications of the aorta and the bilateral iliac vessels. Near complete occlusion of the distal aorta at the bifurcation. Small right adrenal nodule measuring 1.2 cm. Severe degenerative disease of the lumbar spine. Avascular necrosis of the right femoral head. Moderate pleural effusion. Severe atherosclerosis of the aorta and its branches. Near complete occlusion of the aorta at its bifurcation. D/ / Andres Farmer MD / Andres Farmer MD Interpreting Provider: Andres Farmer MD - Diagnostic Studies Chest x-ray Status: image reviewed by me (Right small effusion with likely infiltrate) - Assessment and Plan (1) GI bleed Current Visit: Yes Status: Acute Assessment and plan: 1. Transfuse PRBC's. 2. Monitor H/HQ 6H. 3. Protonix drip and Octreotide drip ordered. 4. Dr. Perez consulted; EGD +/- colonoscopy tomorrow. Qualifiers: GI bleed type/associated pathology: unspecified gastrointestinal hemorrhage type Qualified Code(s): K92.2 - Gastrointestinal hemorrhage, unspecified (2) Alcohol abuse Current Visit: Yes Status: Chronic Assessment and plan: 1. Will place on CIWA protocol. 2. MVI/Thiamine/Folate. 3. Alcohol cessation advised. (3) Cirrhosis Current Visit: Yes Status: Chronic Assessment and plan: 1. Consult GI as above. 2. EGD +/- colonoscopy per Dr. Perez. Qualifiers: Hepatic cirrhosis type: alcoholic cirrhosis Ascites presence: with ascites Qualified Code(s): K70.31 - Alcoholic cirrhosis of liver with ascites (4) Pneumonia Current Visit: Yes Status: Suspected Assessment and plan: 1. Culture blood and sputum. 2. Will start IV antibiotics, aerosols, and oxygen PRN. 3. Monitor clinically. Qualifiers: Pneumonia type: due to unspecified organism Laterality: right Lung location: lower lobe of lung Qualified Code(s): J18.1 - Lobar pneumonia, unspecified organism (5) DVT prophylaxis Current Visit: Yes Status: Acute Assessment and plan: 1. EPCD's.
[2019-01-20] MEDS: Levofloxacin 500 MG/100 ML 500 MG/100 ML BAG IVPB SCH ×2 (00:43→22:15)
[2019-01-20] MEDS: MetroNIDAZOLE 500 MG/100 ML 500 MG/100 ML BAG IVPB SCH ×4 (02:01→23:51)
[2019-01-20] MEDS ORDERED: 0.9 % Sodium Chloride 250 ML ONE ×2 (02:38→15:14)
[2019-01-20 03:08] LABS: Basophils % 0.7 %; Eosinophils # 0.3 K/mcL (0.0-0.6); Eosinophils % 5.4 %; Hematocrit 25.1 % (37.5-50.1); Hemoglobin 7.3 g/dL (12.9-16.9); Immature Granulocytes % 1.7 % (0-4); Lymphocytes # 0.4 K/mcL (0.6-4.6); Lymphocytes % 7.6 %; Mean Corpuscular HGB Conc 29.1 g/dL (31.6-35.5); Mean Corpuscular Hemoglobin 23.6 pg (28.0-33.3); Mean Corpuscular Volume 81.2 fL (83.0-100.0); Mean Platelet Volume 9.6 fL (9.4-12.4); Monocytes # 0.6 K/mcL (0.0-1.3); Neutrophils # 4.3 K/mcL (1.6-8.9); Platelet Count 104 K/mcL (140-400); Red Blood Count 3.09 M/mcL (4.19-5.50); Red Cell Distribution Width 18.2 % (11.5-14.5); Segmented Neutrophils % 74.6 %
[2019-01-20 03:16] LABS: INR 1.3; Prothrombin Time 15.1 Seconds (9.4-12.1)
[2019-01-20 03:18] LABS: Activated Partial Thrombo Time 35.2 Seconds (26.0-36.0)
[2019-01-20 03:27] LABS: Alanine Aminotransferase 6 Units/L (7-52); Albumin 3.9 g/dL (3.5-5.7); Albumin/Globulin Ratio 1.7 (1.1-2.2); Alkaline Phosphatase 74 Units/L (34-104); Aspartate Amino Transferase 12 Units/L (13-39); BUN/Creatinine Ratio 20 (6-26); Bilirubin,Total 0.9 mg/dL (0.3-1.0); Blood Urea Nitrogen 13 mg/dL (8-23); Calcium 8.4 mg/dL (8.6-10.3); Carbon Dioxide 32 mEq/L (23-29); Chloride 95 mEq/L (98-107); Chol/HDL Ratio 2.4 (0-4.9); Cholesterol 57 mg/dL (< 200); Globulin 2.3 g/dL (2.4-3.5); Glucose 150 mg/dL (70-105); HDL Cholesterol 24 mg/dL (40-59); LDL Cholesterol,Calculated 23 mg/dL (0-99); Magnesium 1.9 mg/dL (1.6-2.6); Osmolality,Calculated 285 (280-300); Sodium 136 mEq/L (136-145); Total Protein 6.2 g/dL (6.4-8.9); Triglycerides 49 mg/dL (< 150); eGFR For Non-African Americans > 60 (> 60)
[2019-01-20] MEDS: Pantoprazole 40 MG in 0.9 % Sodium Chloride Mini Bag 100 ML IVC SCH ×2 (06:50→08:00)
[2019-01-20] MEDS: Thiamine (B-1) 100 MG TABLET PO SCH (07:36)
[2019-01-20] MEDS: Vitamin B Complex/Vit C/Vit E 1 EACH TABLET PO SCH (07:36)
[2019-01-20] MEDS: Folic Acid 1 MG TABLET PO SCH (07:36)
[2019-01-20] MEDS: Octreotide 400 MCG in 0.9 % Sodium Chloride 100 ML IVC SCH (07:37)
[2019-01-20 09:06] LABS: Hematocrit 25.6 % (37.5-50.1); Hemoglobin 7.4 g/dL (12.9-16.9)
--- NOTE | 2019-01-20 10:02 | Electrocardiograph Report ---
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
[2019-01-20 11:23] LABS: Hepatitis B Surface Antigen Nonreactive (Nonreactive)
[2019-01-20 11:52] LABS: Hepatitis B Core IgM Nonreactive (Nonreactive); Hepatitis C Virus Antibody Nonreactive (Nonreactive)
--- NOTE | 2019-01-20 12:07 | Anesthesia Evaluation PreOp ---
Date of Encounter: 01/20/19 Time of Encounter: 12:27 - Past History Planned Operation: EGD Cardiac History: HTN, Hyperlipidemia, Arrhythmia (Afib), Pacemaker/ICD (complete heart block s/p aorto-bifem), Other (PVD, WPW s/p ablation) Pulmonary History: Smoker, COPD [employer] History: Denies Any Significant HX Other Medical History: Hepatic (cirrhosis), GERD Anesthesia History: No Prior Anesthetic Complications, Past Anesthesia (aorto- bifem, T&A, R ankle) Alcohol Use: occasionally, heavy Drug use: none Medications and Allergies Cyclobenzaprine HCl 5 mg PO TID PRN 03/12/16 [History] Nitroglycerin 0.4 mg SL AD PRN 03/12/16 [History] Atorvastatin [Lipitor] 40 mg PO DAILY 03/15/18 [History] Cilostazol [Pletal] 100 mg PO BID 03/15/18 [History] Lisinopril [Zestril] 20 mg PO DAILY 03/15/18 [History] Isosorbide MONOnitrate (24 HR) [Imdur] 30 mg PO DAILY 11/18/18 [History] Furosemide [Lasix] 40 mg PO BID #60 tablet 11/20/18 [Rx] Metoprolol [Lopressor] 25 mg PO BID #60 tablet 11/20/18 [Rx] FLUoxetine HCl [Sarafem] 20 mg PO DAILY 12/23/18 [History] Albuterol Sulfate [Albuterol Inhaler] 2 puff IH Q4-6H PRN 01/19/19 [History] Ferrous Sulfate 325 mg PO BID 01/19/19 [History] Potassium Chloride [K-Tab ER] 20 meq PO DAILY 01/19/19 [History] hydroCHLOROthiazide [Hydrochlorothiazide] 25 mg PO QAM 01/19/19 [History] Allergy/AdvReac Type Severity Reaction Status Date / Time No Known Allergies Allergy Verified 01/19/19 20:30 - Meds/Allergy Pre-op Review Medications Reviewed: Yes Allergies Reviewed: Yes Beta Blockers on Current Med List: Yes (metoprolol) If Beta Blockers taken, Date/Time (Last Dose taken): 0736 Anesthesia Results - Labs 01/20/19 08:19 01/20/19 02:54 - Imaging EKG: report reviewed (Atrial-sensed ventricular-paced rhythm No further analysis attempted due to paced rhythm) Anesthesia Exam Vital Signs/O2 Sat/Glucose, Most Recent Temp Pulse Resp BP Pulse Ox 98.0 F 72 20 129/72 97 01/20/19 08:10 01/20/19 08:10 01/20/19 08:10 01/20/19 08:10 01/20/19 08:10 Blood Glucose* 126 - HEENT Pupil (Motor): Pupils equal Mallampati: II Teeth: Poor dentition - [employer] LOC: Oriented [employer] Motor: Normal RUE, Normal LUE, Normal RLE, Normal LLE, Normal Face [employer] Sensory: Normal: RUE, LUE, RLE, LLE, Face - Cardiac Rhythm: Regular Murmur: None - Pulmonary Breath Sounds: bilateral Clear Respiratory Effort: Symmetrical Anesthesia Assess/Plan ASA Score: 4 (cirrhosis, COPD, pacemaker, PVD, HTN) Level of consciousness: Cooperative, Oriented Anesthetic Plan: MAC Monitoring Plan: Standard Monitors Recovery Plan: PACU
--- NOTE | 2019-01-20 12:14 | Gastroenterology Consult Note ---
<Que Augustine Tereso - Last Filed: 01/20/19 12:12> Date of Encounter: 01/20/19 Time of Encounter: 09:40 - Assessment and plan (1) GI bleed Current Visit: Yes Status: Acute Assessment and plan: Patient with melena and hematochezia. Hgb 6.7 on admission and 7.3 today. Continue to monitor CBC and transfuse PRBC as needed. Planned for EGD and colonscopy today. Patient started bowel prep, but did not complete, and is not clear. Plan for EGD today. Qualifiers: GI bleed type/associated pathology: unspecified gastrointestinal hemorrhage type Qualified Code(s): K92.2 - Gastrointestinal hemorrhage, unspecified (2) Low hemoglobin Current Visit: Yes Status: Acute Assessment and plan: As above. (3) Cirrhosis Current Visit: Yes Status: Chronic Assessment and plan: MELD-Na 14, Child-Houser class B, DF 16.7. CT A/P with moderate to large volume ascites, cirrhosis, gastrohepatic varices. Plan for EGD today. Complete liver workup. Complete liver US to r/o HCC. Consider paracentesis. Infuse Albumin 25%, 8 gm/L if greater than 5 liters removed. Recommend 2-4 BM daily, use Lactulose as needed. Lifestyle Changes: 1. Total abstinence from alcohol including social drinking. 2. No smoking. 3. Gradual loss of weight. 4. Drink at least 3 cups of coffee due to its antioxidant effects in the liver, it reduces risk of HCC and advance fibrosis. 5. If needed, use less than 2 g/day of Tylenol (in divided doses). 6. Vaccination for Hep A, B, Pneumococcus if not already received and yearly influenza vaccination by PCP. 7. Avoid NSAIDS as can cause kidney damage. 8. Avoid benzodiazepines and other sedatives such as anti-histamines, narcotics etc. as can cause encephalopathy or confusion. 9. Take a late carbohydrate meal supplement as it reduces glucose production from protein breakdown and thus improves nutrition. 10. In cirrhosis, statins are safe to use and also improve portal hypertension and decrease risk of HCC. 11. Screening: Hepatocellular cancer screening: US of liver and AFP every 6 months Qualifiers: Hepatic cirrhosis type: alcoholic cirrhosis Ascites presence: with ascites Qualified Code(s): K70.31 - Alcoholic cirrhosis of liver with ascites (4) Alcohol abuse Current Visit: Yes Status: Chronic Assessment and plan: Abstain from all forms of alcohol. - Time Spent With Patient Total time spent is greater than 50% in coordination of care (as documented) at patient's floor/unit and/or counseling patient: GI History of Present Illness - Data of Consult Patient: new to practice Consult date: 01/20/19 Requesting Physician: Lino Bustillos MD - Consult Narrative Reason for consult: GI bleed History of present illness: Mr. Love is a 63 year old male with PMHx of Afib, CHF, COPD, CAD, CVA, DM, GERD, HLD, HTN, ME, aortic aneurysm, with pacemaker and AICD who presented to the ED with concerns of melena, hematochezia, and significant weight gain over the last several weeks. Hgb on arrival was 6.7, this AM Hgb 7.3 after 1 unit PRBC. He states he has been having melena and BRBPR with every BM for the past "several years". He reports having an EGD and colonoscopy by Dr. Lozano 6 weeks ago, and states nothing was found. No record of scopes was found. CT A/P with moderate to large volume ascites, cirrhosis, gastrohepatic varices. He admits history of heavy drinking consisting of a fifth of liquor per day plus beer, he states he has had none in the past 6 weeks. Procedures: Colonoscopy 06/19/2015 Dr. Lozano: Diverticulosis, three 4-8 mm tubular adenomas and one hyperplastic polyp, repeat colonoscopy in 3 years for surveillance. EGD 06/19/2015 Dr. Lozano: Two gastric ulcers with clean base, gastritis, intestinal metaplasia in antrum. NSAIDs: None Anticoagulation: None Past Med Surg Social Fam HX - Past Medical History Medical history: aortic aneurysm, atrial fibrillation, CHF, COPD, coronary artery disease, CVA, diabetes, GERD, hyperlipidemia, hypertension, myocardial infarction, peripheral artery disease, SVT, other Additional medical history: Ablation Cardiac, WPW Psychiatric history: no psych history - Past Surgical History Surgical History: appendectomy, LE Bypass, LE stent(s), LE vascular intervention Additional surgical history: R. Ankle plate. Bilateral Leg Stents - Social History Smoking Status: Former smoker Smokeless Tobacco Status: No Alcohol use: occasionally, heavy Drug use: none - Family History Mother Adopted: No Family Member Ethnicity: Non- Living Status: Hx Family Cardiac Disorders: Yes Hx Family Respiratory Disorders: Yes Hx Family Cancer: No Hx Family GI Disorders: No Hx Family Endocrine Disorder: Yes Hx Family Neuromuscular Disorders: No Hx Family Neurologic Disorders: No Hx Family HEENT Disorders: No Hx Family Autoimmune Disorders: No Father Adopted: [employer]: Octavio Age: 76 Family Member Ethnicity: Non- Living Status: Age at : 76 Cause of : heart failure Hx Family Cardiac Disorders: Yes Hx Family Respiratory Disorders: No Hx Family Cancer: No Hx Family GI Disorders: No Hx Family Genitourinary Disorders: No Hx Family Endocrine Disorder: No Hx Family Musculoskeletal Disorders: No Hx Family Neuromuscular Disorders: No Hx Family Neurologic Disorders: No Hx Family HEENT Disorders: No Hx Family Autoimmune Disorders: No Hx Family Reproductive Disorders: No Hx Family Psychosocial Disorders: No Hx Family Medical Disorders: No - Gastrointestinal Gastrointestinal: Present: as per HPI - Constitutional Constitutional: as per HPI - EENT Eyes: as per HPI Ears: Present: as per HPI Nose, mouth and throat: Present: as per HPI - Cardiovascular Cardiovascular ROS: Present: as per HPI - Respiratory Respiratory IM: Present: as per HPI - Genitourinary Genitourinary: Absent: change in color, Urinary frequency - Neurological ROS Neurological GI: Present: as per HPI - Hematologic/Lymphatic Hematologic/Lymphatic pediatric: Present: as per HPI - Musculoskeletal Musculoskeletal ROS GI: Present: as per HPI - Integumentary Integumentary GI: Present: as per HPI - Psychiatric ROS Psychiatric GI: Present: as per HPI - Endocrine Endocrine IM: Present: as per HPI - Constitutional Vitals: Temp Pulse Resp BP Pulse Ox 98.0 F 72 20 129/72 97 01/20/19 08:10 01/20/19 08:10 01/20/19 08:10 01/20/19 08:10 01/20/19 08:10 General appearance: Present: A&O X 3, no acute distress, answers questions appropriately - Head Head exam: Present: atraumatic, normocephalic - Eye Eye exam: Present: normal appearance, sclera anicteric - ENT ENT exam: Present: mucous membranes dry - Neck Neck exam general surgery: Present: normal inspection, trachea midline - Respiratory Respiratory exam: Present: rales, rhonchi - Cardiovascular Cardiovascular exam: Present: RRR, +S1, +S2 - GI/Abdominal GI/Abdominal exam: Present: distended, firm, no peritoneal signs. Absent: guarding, tenderness Additional comments: Midline surgical scar - Expanded GI/Abdominal Exam GI/Abdominal exam expanded: Present: ascites - Rectal Rectal exam: Present: deferred - Extremities Exam Extremities exam: Present: warm Additional comments: Surgical scar right medial thigh. - Neurological Exam Neurological exam: Present: no focal deficits - Psychiatric Psychiatric exam: Present: normal affect, normal mood - Skin Skin exam: Present: dry, intact, normal color, warm Results - Labs CBC & Chem 7: 01/20/19 08:19 01/20/19 02:54 Labs: Last Result 01/20/19 01/20/19 02:54 10:10 Calcium 8.4 L Ferritin 14 L Triglycerides 49 Entire Visit 01/20/19 01/20/19 01/20/19 02:54 02:54 02:54 Hgb 7.3 L Hct 25.1 L PT 15.1 H Ferritin Total Bilirubin 0.9 AST 12 L ALT 6 L 01/20/19 01/20/19 08:19 10:10 Hgb 7.4 L Hct 25.6 L PT Ferritin 14 L Total Bilirubin AST ALT - ABG ABG results: PT/INR, D-dimer PT 15.1 Seconds (9.4-12.1) H 01/20/19 02:54 - Impressions Impressions Chest X-Ray 01/19/19 15:12 IMPRESSION: 1. No significant change in mild pulmonary vascular congestion and pulmonary edema as well as small right-sided pleural effusion with underlying atelectasis or infiltrate. D/ / Susanne Brower MD / Susanne Brower MD Interpreting Provider: Susanne Brower MD Abdomen/Pelvis CT 01/19/19 15:38 IMPRESSION: Moderate to large volume ascites. Peripherally nodular appearance to the liver is suggestive of cirrhosis. Gastrohepatic varices. Dense atherosclerotic calcifications of the aorta and the bilateral iliac vessels. Near complete occlusion of the distal aorta at the bifurcation. Small right adrenal nodule measuring 1.2 cm. Severe degenerative disease of the lumbar spine. Avascular necrosis of the right femoral head. Moderate pleural effusion. Severe atherosclerosis of the aorta and its branches. Near complete occlusion of the aorta at its bifurcation. D/ / Andres Farmer MD / Andres Farmer MD Interpreting Provider: Andres Farmer MD Liver Ultrasound 01/20/19 10:30 IMPRESSION: Cirrhotic liver with small volume abdominal ascites. Cholelithiasis. No evidence of cholecystitis. D/ / Markie Santoyo MD / Markie Santoyo MD Interpreting Provider: Markie Santoyo MD Consult Discharge Plan - Plan Referrals: Barbara Otero LIABILITY CLAIMS REPRESENTATIVE [Primary Care Provider] - <Isaiah Perez - Last Filed: 01/20/19 14:08> Date of Encounter: 01/20/19 Time of Encounter: 09:00 - Time Spent With Patient Total time spent is greater than 50% in coordination of care (as documented) at patient's floor/unit and/or counseling patient: GI History of Present Illness - Data of Consult Requesting Physician: Lino Bustillos MD - Consult Narrative History of present illness: Mr. Love is a 63 year old male - Constitutional Vitals: Temp Pulse Resp BP Pulse Ox 98.0 F 62 18 114/60 97 01/20/19 08:10 01/20/19 12:41 01/20/19 12:41 01/20/19 12:41 01/20/19 12:41 Results - Labs CBC & Chem 7: 01/20/19 08:19 01/20/19 02:54 Labs: Last Result 01/20/19 01/20/19 01/20/19 02:54 10:10 11:50 Calcium 8.4 L Ferritin 14 L Triglycerides 49 Peritoneal RBC 0.004 H Periton Tot Nuc Cells 237 Peritoneal Tot Protein Peritoneal LDH Peritoneal Glucose Peritoneal Amylase 01/20/19 11:50 Calcium Ferritin Triglycerides Peritoneal RBC Periton Tot Nuc Cells Peritoneal Tot Protein 3.1 Peritoneal LDH 44 Peritoneal Glucose 170 Peritoneal Amylase < 10 Entire Visit 0501/20/19 01/20/19 02:54 02:54 02:54 Hgb 7.3 L Hct 25.1 L PT 15.1 H Ferritin Total Bilirubin 0.9 AST 12 L ALT 6 L 01/20/19 01/20/19 08:19 10:10 Hgb 7.4 L Hct 25.6 L PT Ferritin 14 L Total Bilirubin AST ALT - ABG ABG results: PT/INR, D-dimer PT 15.1 Seconds (9.4-12.1) H 01/20/19 02:54 - Impressions Impressions Chest X-Ray 01/19/19 15:12 IMPRESSION: 1. No significant change in mild pulmonary vascular congestion and pulmonary edema as well as small right-sided pleural effusion with underlying atelectasis or infiltrate. D/ / Susanne Brower MD / Susanne Brower MD Interpreting Provider: Susanne Brower MD Abdomen/Pelvis CT 01/19/19 15:38 IMPRESSION: Moderate to large volume ascites. Peripherally nodular appearance to the liver is suggestive of cirrhosis. Gastrohepatic varices. Dense atherosclerotic calcifications of the aorta and the bilateral iliac vessels. Near complete occlusion of the distal aorta at the bifurcation. Small right adrenal nodule measuring 1.2 cm. Severe degenerative disease of the lumbar spine. Avascular necrosis of the right femoral head. Moderate pleural effusion. Severe atherosclerosis of the aorta and its branches. Near complete occlusion of the aorta at its bifurcation. D/ / Andres Farmer MD / Andres Farmer MD Interpreting Provider: Andres Farmer MD Liver Ultrasound 01/20/19 10:30 IMPRESSION: Cirrhotic liver with small volume abdominal ascites. Cholelithiasis. No evidence of cholecystitis. D/ / Markie Santoyo MD / Markie Santoyo MD Interpreting Provider: Markie Santoyo MD - Attending Attestation I have personally performed a face to face evaluation on this patient. I have reviewed and agree with the care plan. History and Exam by me shows: Patient seen. Complaining of abdominal swelling. On examination: severe abdominal swelling scrotal swelling and lower extremity swelling consistent with anasarca. A: Patient with cirrhosis with severe anemia does has a history of black stool. #2 ascites severe with the fluid retention and anasarca. Recommendation: EGD today to rule out the gastric causes for his anemia if negative then we will do colonoscopy. We will wait for colonoscopy until early next week as patient need to have paracentesis done and also need to be diuresed. With large amount of ascites it will be high risk to do a colonoscopy now
[2019-01-20] MEDS ORDERED: *HR* Propofol 200 MG/20 ML VIAL IVP ONE (12:28)
[2019-01-20 13:53] LABS: RBC,Peritoneal Fluid 0.004 M/mcL
[2019-01-20 14:04] LABS: Amylase,Peritoneal Fluid < 10 Units/L (No Ref Range); Glucose,Peritoneal Fluid 170 mg/dL (No Ref Range); LDH,Peritoneal Fluid 44 Units/L (No Ref Range); Total Protein,Peritoneal Fluid 3.1 g/dL
--- NOTE | 2019-01-20 14:29 | IR Procedure Note ---
Date of procedure: 01/20/19 Consent Obtained: Verbal consent Timeout: Correct patient and procedure verified, Correct site verified, Time out performed, Skin prep completed Local anesthetic: Lidocaine 1% Indications: Ascites Procedure Performed: Paracentesis Was there an wet process miller head assistant present: No [place]: Ghassan Smith Site/Technique: RLQ Results/Findings: Drainage of ascites from lower right abdomen. Tolerated well. Estimated blood loss (cc): 1 Complications: None; Tolerated procedure well Post Procedure Treatment Plan: Monitoring in vir Specimen: sent to lab
[2019-01-20] MEDS ORDERED: *HR* Dextrose 50 % in Water (Syg) 50 ML SYRINGE IVP PRN (14:40)
[2019-01-20] MEDS ORDERED: D5% in Water 1,000 ML IVC PRN (14:40)
[2019-01-20] MEDS ORDERED: Dextrose Gel 15 GM/37.5 ML TUBE PO PRN ×2 (14:40)
--- NOTE | 2019-01-20 14:40 | Internal Med Progress Note ---
Hospitalist Progress Note - Encounter Date of Encounter: 01/20/19 Time of Encounter: 14:36 - Subjective Interval History: I have seen and evaluated the patient at bedside. Patient reports having abdominal pain, denies nausea or vomiting episodes. denies chest pain. he denies fever/chills before presenting to the hospital. - Exam Vitals: Temp Pulse Resp BP Pulse Ox 98.0 F 62 18 114/60 97 01/20/19 08:10 01/20/19 12:41 01/20/19 12:41 01/20/19 12:41 01/20/19 12:41 Exam: Vitals: Reviewed General: Alert and oriented x3. In mild distress due to abdominal pain. Cardiovascular: RRR, normal S1 & S2, no rubs, murmurs or gallops. No JVD. Pulse regular. Lungs: CTA b/l, no wheezes or crackles. Abdomen: Distended, Soft, non-tender, no rigidity. Hyperactive bowel sounds. healed chronic post surgical changes. Extremities: anasarca Neurological: Normal cognition Rest of the physical exam is non contributory - Assessment and Plan (1) GI bleed Current Visit: Yes Status: Acute Assessment and Plan: patient scheduled for EGD. discontinue PPI and Octriotide drip will add pantoprazole 40mg/IV BID accu-checks Q6HRs plus lispro low dose sliding scale will transfuse 1 more unit of PRBCs repeat CBC 1 hour post transfusion (2) Cirrhosis Current Visit: Yes Status: Chronic Assessment and Plan: CT/CT abd pelvis w iv no oral IMPRESSION: Moderate to large volume ascites. Peripherally nodular appearance to the liver is suggestive of cirrhosis. Gastrohepatic varices. Dense atherosclerotic calcifications of the aorta and the bilateral iliac vessels. Near complete occlusion of the distal aorta at the bifurcation. Small right adrenal nodule measuring 1.2 cm. Severe degenerative disease of the lumbar spine. Avascular necrosis of the right femoral head. Moderate pleural effusion. Severe atherosclerosis of the aorta and its branches. Near complete occlusion of the aorta at its bifurcation. Plan IR consulted for paracenthesis will start patient on spironolacatone 12.5mg/PO daily On furosemide 40mg/PO daily fluids restriction to 1.5 litters a day. (3) Alcohol abuse Current Visit: Yes Status: Chronic Assessment and Plan: patient reports Hx of heavy alcohol abuse. on CIWA protocol. patient with no signs of alcohol withdrawal (4) Pneumonia Current Visit: Yes Status: Suspected Assessment and Plan: started on levofloxacin and metronidazole. sputum culture ordered blood culture: no growth pending final report (5) Atrial tachycardia Current Visit: No Status: Chronic Assessment and Plan: patient on metoprolol 25mg/PO BID. traffic monitor specialist. (6) COPD (chronic obstructive pulmonary disease) Current Visit: No Status: Chronic Assessment and Plan: no wheezing on auscultation. patient on bronchodilators Q4RT PRN. (7) DM2 (diabetes mellitus, type 2) Current Visit: No Status: Chronic Assessment and Plan: patient on a full liquid diet. started on lispro low dose sliding scale. (8) HLD (hyperlipidemia) Current Visit: No Status: Chronic DVT Prophylaxis: intermittent pneumatic compression if patient allows it no chemical dvt prophylaxis due to GI bleeding - Time Spent with Patient Total time spent is greater than 50% in coordination of care (as documented) at patient's floor/unit and/or counseling patient: Greater than 35 minutes (40) Plan of Care Discussed with: patient (and the nurse.) Internal Medicine: Result - Labs CBC & Chem 7: 01/20/19 08:19 01/20/19 02:54 Labs: Short CBC 01/19/19 01/20/19 01/20/19 Range/Units 15:52 02:54 08:19 WBC 6.4 5.8 (4.3-11.1) K/mcL Hgb 6.7 L 7.3 L 7.4 L (12.9-16.9) g/dL Hct 23.2 L 25.1 L 25.6 L (37.5-50.1) % Plt Count 112 L 104 L (140-400) K/mcL Neutrophils # 5.0 4.3 (1.6-8.9) K/mcL BMP 01/19/19 01/20/19 15:52 02:54 Sodium 135 L 136 Potassium 4.0 4.0 Chloride 93 L 95 L Carbon Dioxide 30 H 32 H BUN 16 13 Creatinine 0.77 0.64 L Glucose 142 H 150 H Calcium 9.0 8.4 L Cardiac Enzymes 01/19/19 Range/Units 15:52 Troponin I < 0.03 (< 0.04) ng/mL Liver Function 01/19/19 01/20/1919 Range/Units 15:52 02:54 10:10 Total Bilirubin 0.6 0.9 (0.3-1.0) mg/dL AST 12 L 12 L (13-39) Units/L ALT 6 L 6 L (7-52) Units/L Alkaline Phosphatase 76 74 (34-104) Units/L Albumin 4.1 3.9 4.3 (3.5-5.7) g/dL - ABG Interpretation ABG results: PT/INR, D-dimer PT 15.1 Seconds (9.4-12.1) H 01/20/19 02:54 - Impressions Impressions Chest X-Ray 01/19/19 15:12 IMPRESSION: 1. No significant change in mild pulmonary vascular congestion and pulmonary edema as well as small right-sided pleural effusion with underlying atelectasis or infiltrate. D/ / Susanne Brower MD / Susanne Brower MD Interpreting Provider: Susanne Brower MD Abdomen/Pelvis CT 01/19/19 15:38 IMPRESSION: Moderate to large volume ascites. Peripherally nodular appearance to the liver is suggestive of cirrhosis. Gastrohepatic varices. Dense atherosclerotic calcifications of the aorta and the bilateral iliac vessels. Near complete occlusion of the distal aorta at the bifurcation. Small right adrenal nodule measuring 1.2 cm. Severe degenerative disease of the lumbar spine. Avascular necrosis of the right femoral head. Moderate pleural effusion. Severe atherosclerosis of the aorta and its branches. Near complete occlusion of the aorta at its bifurcation. D/ / Andres Farmer MD / Andres Farmer MD Interpreting Provider: Andres Farmer MD Liver Ultrasound 01/20/19 10:30 IMPRESSION: Cirrhotic liver with small volume abdominal ascites. Cholelithiasis. No evidence of cholecystitis. D/ / Markie Santoyo MD / Markie Santoyo MD Interpreting Provider: Markie Santoyo MD Consult Discharge Plan - Plan Referrals: Barbara Otero, RESOURCE TECHNICIAN [Primary Care Provider] - ___ (1) GI bleed Qualifiers: GI bleed type/associated pathology: unspecified gastrointestinal hemorrhage type Qualified Code(s): K92.2 - Gastrointestinal hemorrhage, unspecified (2) Cirrhosis Qualifiers: Hepatic cirrhosis type: alcoholic cirrhosis Ascites presence: with ascites Qualified Code(s): K70.31 - Alcoholic cirrhosis of liver with ascites (4) Pneumonia Qualifiers: Pneumonia type: due to unspecified organism Laterality: right Lung location: lower lobe of lung Qualified Code(s): J18.1 - Lobar pneumonia, unspecified organism (6) COPD (chronic obstructive pulmonary disease) Qualifiers: COPD type: emphysema Emphysema type: panlobular Qualified Code(s): J43.1 - Panlobular emphysema (7) DM2 (diabetes mellitus, type 2) Qualifiers: Diabetes mellitus oil heaterman insulin use: without longterm use Diabetes mellitus complication status: without complication Qualified Code(s): E11.9 - Type 2 diabetes mellitus without complications (8) HLD (hyperlipidemia) Qualifiers: Hyperlipidemia type: unspecified Qualified Code(s): E78.5 - Hyperlipidemia, unspecified
[2019-01-20 15:34] LABS: Hematocrit 28.4 % (37.5-50.1); Hemoglobin 8.1 g/dL (12.9-16.9)
[2019-01-20] MEDS: traMADol 50 MG TABLET PO PRN (15:41)
[2019-01-20] MEDS: Fluconazole 100 MG TABLET PO SCH (16:37)
[2019-01-20] MEDS: Insulin LISPRO 300 UNITS/3 ML VIAL SQ SCH ×2 (17:28→23:39)
[2019-01-20] MEDS: Pantoprazole 40 MG VIAL IVP SCH (17:28)
[2019-01-20 19:02] LABS: Basophils # 0.1 K/mcL (0.0-0.2); Basophils % 0.9 %; Eosinophils # 0.3 K/mcL (0.0-0.6); Eosinophils % 4.3 %; Hematocrit 29.2 % (37.5-50.1); Hemoglobin 8.6 g/dL (12.9-16.9); Immature Granulocytes % 1.2 % (0-4); Lymphocytes # 0.4 K/mcL (0.6-4.6); Lymphocytes % 7.4 %; Mean Corpuscular HGB Conc 29.5 g/dL (31.6-35.5); Mean Corpuscular Hemoglobin 24.6 pg (28.0-33.3); Mean Corpuscular Volume 83.4 fL (83.0-100.0); Monocytes # 0.6 K/mcL (0.0-1.3); Monocytes % 9.6 %; Neutrophils # 4.5 K/mcL (1.6-8.9); Platelet Count 103 K/mcL (140-400); Segmented Neutrophils % 76.6 %
[2019-01-20 22:40] LABS: Appearance of Peritoneal Fl CLEAR (Clear)
[2019-01-21] MEDS: MetroNIDAZOLE 500 MG/100 ML 500 MG/100 ML BAG IVPB SCH ×2 (07:53→16:54)
[2019-01-21] MEDS: Pantoprazole 40 MG VIAL IVP SCH (07:53)
[2019-01-21] MEDS: Folic Acid 1 MG TABLET PO SCH (07:54)
[2019-01-21] MEDS: Vitamin B Complex/Vit C/Vit E 1 EACH TABLET PO SCH (07:54)
[2019-01-21] MEDS: Fluconazole 100 MG TABLET PO SCH (07:54)
[2019-01-21] MEDS: Spironolactone 25 MG TABLET PO SCH (07:54)
[2019-01-21] MEDS: Insulin LISPRO 300 UNITS/3 ML VIAL SQ SCH ×3 (08:04→17:54)
[2019-01-21] MEDS: Thiamine (B-1) 100 MG TABLET PO SCH (08:12)
[2019-01-21] MEDS ORDERED: Furosemide 20 MG TABLET PO SCH (09:00)
[2019-01-21 09:51] LABS: Basophils % 0.8 %; Hemoglobin 8.7 g/dL (12.9-16.9)
[2019-01-21 09:53] LABS: Basophils # 0.1 K/mcL (0.0-0.2); Eosinophils # 0.3 K/mcL (0.0-0.6); Eosinophils % 4.7 %; Immature Granulocytes % 1.5 % (0-4); Lymphocytes # 0.4 K/mcL (0.6-4.6); Lymphocytes % 6.6 %; Mean Corpuscular Hemoglobin 24.6 pg (28.0-33.3); Mean Corpuscular Volume 84.7 fL (83.0-100.0); Mean Platelet Volume 10.7 fL (9.4-12.4); Monocytes % 10.8 %; Neutrophils # 4.5 K/mcL (1.6-8.9); Platelet Count 101 K/mcL (140-400); Red Blood Count 3.54 M/mcL (4.19-5.50); Red Cell Distribution Width 18.6 % (11.5-14.5); Segmented Neutrophils % 75.6 %
[2019-01-21 09:55] LABS: Anisocytosis 1+ (Not Present); Hypochromasia Present (Not Present); Monocytes # 0.7 K/mcL (0.0-1.3); Platelet Estimate Slight Decrease (Normal)
--- NOTE | 2019-01-21 14:27 | Internal Med Progress Note ---
Hospitalist Progress Note - Encounter Date of Encounter: 01/21/19 Time of Encounter: 14:25 - Subjective Interval History: I have seen and evaluated the patient at bedside. Patient reports haviing supra- pubic pain because he has been holding his urine, reports this morning he had a near syncopal episode because he has holding his urine for too long and he was having 10/10 supra-pubic abdominal pain. denies nausea, vomiting, shortness of breath or light headedness - Exam Vitals: Temp Pulse Resp BP Pulse Ox 98.5 F 91 17 117/65 97 01/21/19 11:25 01/21/19 11:25 01/21/19 11:25 01/21/19 11:25 01/21/19 11:25 Exam: Vitals: Reviewed General: Alert and oriented x3. In mild distress due to supra-pubic discomfort. Cardiovascular: RRR, normal S1 & S2, no rubs, murmurs or gallops. No JVD. Pulse regular. Lungs: CTA b/l, no wheezes or crackles. Abdomen: Distended, Soft, non-tender, no rigidity. Hyperactive bowel sounds. healed chronic post surgical changes. Extremities: anasarca Neurological: Normal cognition Rest of the physical exam is non contributory - Assessment and Plan (1) GI bleed Current Visit: Yes Status: Acute Assessment and Plan: No signs of active bleeding. patient status post 3 units of PRBCs transfused. EGD: Grade I esophageal varices, portal hypertensive gastropathy, esophageal candidiasis Plan patient scheduled for colonoscopy on Wednesday continue full liquid diet will monitor H&H and transfuse per protocol DC IV PPIs will start Omeprazole 40mg/PO daily (2) Cirrhosis Current Visit: Yes Status: Chronic Assessment and Plan: CT/CT abd pelvis w iv no oral IMPRESSION: Moderate to large volume ascites. Peripherally nodular appearance to the liver is suggestive of cirrhosis. Gastrohepatic varices. s/p IR guided paracenthesis with 4.5 ML removed Plan continue spironolacatone 25mg/PO daily Increase furosemide to 40mg/PO BID fluids restriction to 1.5 litters a day. (3) Alcohol abuse Current Visit: Yes Status: Chronic Assessment and Plan: on CIWA protocol. (4) Pneumonia Current Visit: Yes Status: Suspected Assessment and Plan: Continue levofloxacin and metronidazole. (5) Atrial tachycardia Current Visit: No Status: Chronic Assessment and Plan: Rate controlled on metoprolol 25mg/PO BID. (6) COPD (chronic obstructive pulmonary disease) Current Visit: No Status: Chronic Assessment and Plan: Chest is clear on auscultation. No wheezing. Continue bronchodilators. (7) DM2 (diabetes mellitus, type 2) Current Visit: No Status: Chronic Assessment and Plan: Blood sugar is well controlled. Continue lispro low-dose sliding scale before meals. (8) HLD (hyperlipidemia) Current Visit: No Status: Chronic Assessment and Plan: We will resume atorvastatin 40 mg by mouth at bedtime. DVT Prophylaxis: Mechanical DVT prophylaxis. No chemical DVT prophylaxis due to GI bleed. - Summary of Assessment and Plan Summary of Assessment and Plan: Patient to remain in the hospital due to GI bleed. Scheduled for colonoscopy on Wednesday. - Time Spent with Patient Total time spent is greater than 50% in coordination of care (as documented) at patient's floor/unit and/or counseling patient: Greater than 35 minutes (40) Plan of Care Discussed with: patient (and the nurse.) Internal Medicine: Result - Labs CBC & Chem 7: 01/21/19 09:04 01/20/19 02:54 Labs: Short CBC 01/20/19 01/20/19 01/21/19 Range/Units 15:05 18:54 09:04 WBC 5.9 6.0 (4.3-11.1) K/mcL Hgb 8.1 L 8.6 L 8.7 L (12.9-16.9) g/dL Hct 28.4 L 29.2 L 30.0 L (37.5-50.1) % Plt Count 103 L 101 L (140-400) K/mcL Neutrophils # 4.5 4.5 (1.6-8.9) K/mcL - ABG Interpretation ABG results: PT/INR, D-dimer PT 15.1 Seconds (9.4-12.1) H 01/20/19 02:54 - Impressions Impressions Paracentesis Ultrasound 01/20/19 08:29 IMPRESSION: Successful ultrasound guided paracentesis. D/ / Papi Gill MD / Papi Gill MD Interpreting Provider: Papi Gill MD Consult Discharge Plan - Plan Referrals: Barbara Otero, [employer] [Primary Care Provider] - (1) GI bleed Qualifiers: GI bleed type/associated pathology: unspecified gastrointestinal hemorrhage type Qualified Code(s): K92.2 - Gastrointestinal hemorrhage, unspecified (2) Cirrhosis Qualifiers: Hepatic cirrhosis type: alcoholic cirrhosis Ascites presence: with ascites Qualified Code(s): K70.31 - Alcoholic cirrhosis of liver with ascites (4) Pneumonia Qualifiers: Pneumonia type: due to unspecified organism Laterality: right Lung location: lower lobe of lung Qualified Code(s): J18.1 - Lobar pneumonia, unspecified organism (6) COPD (chronic obstructive pulmonary disease) Qualifiers: COPD type: emphysema Emphysema type: panlobular Qualified Code(s): J43.1 - Panlobular emphysema (7) DM2 (diabetes mellitus, type 2) Qualifiers: Diabetes mellitus assisted insulin use: without terminal gauger use Diabetes mellitus complication status: without complication Qualified Code(s): E11.9 - Type 2 diabetes mellitus without complications (8) HLD (hyperlipidemia) Qualifiers: Hyperlipidemia type: unspecified Qualified Code(s): E78.5 - Hyperlipidemia, unspecified
[2019-01-21] MEDS: traMADol 50 MG TABLET PO PRN (16:54)
[2019-01-21] MEDS: Furosemide 40 MG TABLET PO SCH (16:54)
[2019-01-21 17:59] LABS: Hepatitis A Antibody IgM Nonreactive (Nonreactive)
[2019-01-21] MEDS: Levofloxacin 500 MG/100 ML 500 MG/100 ML BAG IVPB SCH (22:01)
[2019-01-22] MEDS: Insulin LISPRO 300 UNITS/3 ML VIAL SQ SCH ×4 (00:05→17:46)
[2019-01-22 04:44] LABS: Basophils % 0.6 %; Eosinophils # 0.4 K/mcL (0.0-0.6); Eosinophils % 5.1 %; Hematocrit 29.9 % (37.5-50.1); Hemoglobin 8.8 g/dL (12.9-16.9); Immature Granulocytes % 1.3 % (0-4); Lymphocytes # 0.5 K/mcL (0.6-4.6); Lymphocytes % 6.9 %; Mean Corpuscular HGB Conc 29.4 g/dL (31.6-35.5); Mean Corpuscular Hemoglobin 24.6 pg (28.0-33.3); Mean Corpuscular Volume 83.5 fL (83.0-100.0); Mean Platelet Volume 10.8 fL (9.4-12.4); Monocytes # 0.8 K/mcL (0.0-1.3); Monocytes % 10.7 %; Neutrophils # 5.4 K/mcL (1.6-8.9); Platelet Count 100 K/mcL (140-400); Red Blood Count 3.58 M/mcL (4.19-5.50); Segmented Neutrophils % 75.4 %
[2019-01-22 05:00] LABS: BUN/Creatinine Ratio 15 (6-26); Blood Urea Nitrogen 10 mg/dL (8-23); Carbon Dioxide 33 mEq/L (23-29); Chloride 92 mEq/L (98-107); Glucose 118 mg/dL (70-105); Magnesium 1.9 mg/dL (1.6-2.6); Osmolality,Calculated 274 (280-300); Phosphorous 3.7 mg/dL (2.7-4.5); Potassium 4.1 mEq/L (3.5-5.1); Sodium 132 mEq/L (136-145); eGFR For Non-African Americans > 60 (> 60)
[2019-01-22] MEDS: MetroNIDAZOLE 500 MG/100 ML 500 MG/100 ML BAG IVPB SCH ×2 (05:53→09:06)
[2019-01-22 09:06] LABS: AFP Tumor Marker Non-Pregnant 3 ng/mL (0-9); ANA IgG by ELISA NONE DETECTED (None Detected)
[2019-01-22] MEDS: Folic Acid 1 MG TABLET PO SCH (09:06)
[2019-01-22] MEDS: Furosemide 40 MG TABLET PO SCH ×2 (09:06→17:47)
[2019-01-22] MEDS: Vitamin B Complex/Vit C/Vit E 1 EACH TABLET PO SCH (09:06)
[2019-01-22] MEDS: Spironolactone 25 MG TABLET PO SCH (09:06)
[2019-01-22] MEDS: Thiamine (B-1) 100 MG TABLET PO SCH (09:06)
[2019-01-22] MEDS: traMADol 50 MG TABLET PO PRN ×2 (09:10→17:46)
[2019-01-22] MEDS: Fluconazole 100 MG TABLET PO SCH (09:10)
--- NOTE | 2019-01-22 10:25 | Internal Med Progress Note ---
Hospitalist Progress Note - Encounter Date of Encounter: 01/22/19 Time of Encounter: 10:19 - Subjective Interval History: I have seen and evaluated the patient at bedside. He reports feeling better today. denies chest pain, shortness of breath or light headedness. abdominal discomfort he reported yesterday, resolved after the Mckay catheter was inserted. denies nausea or vomiting. - Exam Vitals: Temp Pulse Resp BP Pulse Ox 97.4 F L 70 18 120/66 97 01/22/19 06:35 01/22/19 06:35 01/22/19 06:35 01/22/19 06:35 01/22/19 06:35 Exam: Vitals: Reviewed General: Alert and oriented x3. In no distress. Cardiovascular: RRR, normal S1 & S2, no rubs, murmurs or gallops. No JVD. Lungs: CTA b/l, no wheezes or crackles. Abdomen: Distended, Soft, non-tender, no rigidity. Hyperactive bowel sounds. healed chronic post surgical changes. Extremities: anasarca Neurological: Normal cognition Rest of the physical exam is non contributory - Assessment and Plan (1) GI bleed Current Visit: Yes Status: Acute Assessment and Plan: EGD: Grade I esophageal varices, portal hypertensive gastropathy, esophageal candidiasis Plan Scheduled for colonoscopy tomorrow On full liquid diet NPO at midnight will monitor H&H and transfuse per protocol continue Omeprazole 40mg/PO daily GI recommendations appreciated (2) Cirrhosis Current Visit: Yes Status: Chronic Assessment and Plan: CT/CT abd pelvis w iv no oral IMPRESSION: Moderate to large volume ascites. Peripherally nodular appearance to the liver is suggestive of cirrhosis. Gastrohepatic varices. s/p IR guided paracenthesis with 4.5 ML removed Plan Increase spironolacatone to 50mg/PO daily continue furosemide to 40mg/PO BID fluids restriction to 1.5 litters a day. daily weight plus strict intake and output (3) Alcohol abuse Current Visit: Yes Status: Chronic Assessment and Plan: patient educated about the importance on completely stopping alcohol consumption. on CIWA protocol. (4) Pneumonia Current Visit: Yes Status: Suspected Assessment and Plan: patient on metronizole and levofloxacin. will continue antibiotics for 2 more days. (5) Atrial tachycardia Current Visit: No Status: Chronic Assessment and Plan: Rate controlled on metoprolol 25mg/PO BID. (6) COPD (chronic obstructive pulmonary disease) Current Visit: No Status: Chronic Assessment and Plan: Not on acute exacerbation. chest is clear to auscultation. will continue bronchodilators Q4RT PRN. incentive spirometry, chest x-ray with possible ate lectasis. (7) DM2 (diabetes mellitus, type 2) Current Visit: No Status: Chronic Assessment and Plan: blood sugar well controlled. patient is on lispro low dose sliding scale. (8) HLD (hyperlipidemia) Current Visit: No Status: Chronic Assessment and Plan: on atorvastatin 40 mg by mouth at bedtime. (9) Esophageal candidiasis Current Visit: Yes Status: Acute Assessment and Plan: continue diflucan 100mg/PO daily. - Time Spent with Patient Total time spent is greater than 50% in coordination of care (as documented) at patient's floor/unit and/or counseling patient: Greater than 35 minutes (40) Plan of Care Discussed with: patient (and the nurse.) Internal Medicine: Result - Labs CBC & Chem 7: 01/22/19 04:00 01/22/19 04:00 Labs: Short CBC 01/22/19 Range/Units 04:00 WBC 7.1 (4.3-11.1) K/mcL Hgb 8.8 L (12.9-16.9) g/dL Hct 29.9 L (37.5-50.1) % Plt Count 100 L (140-400) K/mcL Neutrophils # 5.4 (1.6-8.9) K/mcL BMP 01/22/19 04:00 Sodium 132 L Potassium 4.1 Chloride 92 L Carbon Dioxide 33 H BUN 10 Creatinine 0.66 L Glucose 118 H Calcium 9.0 - ABG Interpretation ABG results: PT/INR, D-dimer PT 15.1 Seconds (9.4-12.1) H 01/20/19 02:54 Consult Discharge Plan - Plan Referrals: Barbara Otero, ENVIR[employer]MENT[employer]ETY SPECIALIST [Primary Care Provider] - ___ (1) GI bleed Qualifiers: GI bleed type/associated pathology: unspecified gastrointestinal hemorrhage type Qualified Code(s): K92.2 - Gastrointestinal hemorrhage, unspecified (2) Cirrhosis Qualifiers: Hepatic cirrhosis type: alcoholic cirrhosis Ascites presence: with ascites Qualified Code(s): K70.31 - Alcoholic cirrhosis of liver with ascites (4) Pneumonia Qualifiers: Pneumonia type: due to unspecified organism Laterality: right Lung location: lower lobe of lung Qualified Code(s): J18.1 - Lobar pneumonia, unspecified organism (6) COPD (chronic obstructive pulmonary disease) Qualifiers: COPD type: emphysema Emphysema type: panlobular Qualified Code(s): J43.1 - Panlobular emphysema (7) DM2 (diabetes mellitus, type 2) Qualifiers: Diabetes mellitus intermediate insulin use: without intermediate use Diabetes mellitus complication status: without complication Qualified Code(s): E11.9 - Type 2 diabetes mellitus without complications (8) HLD (hyperlipidemia) Qualifiers: Hyperlipidemia type: unspecified Qualified Code(s): E78.5 - Hyperlipidemia, unspecified
[2019-01-22] MEDS ORDERED: Methyl Salicylate/Menthol 28 GM TUBE TP PRN (12:32)
[2019-01-22] MEDS: metroNIDAZOLE 500 MG TABLET PO SCH ×2 (15:01→20:43)
[2019-01-22] MEDS ORDERED: SODIUM CHLORIDE/NAHCO3/KCL/PEG 4,000 ML SOLN.RECON PO ONE (17:00)
[2019-01-22] MEDS ORDERED: levoFLOXacin 750 MG TABLET PO SCH (21:00)
[2019-01-23] MEDS: Insulin LISPRO 300 UNITS/3 ML VIAL SQ SCH ×4 (00:34→18:01)
[2019-01-23] MEDS: traMADol 50 MG TABLET PO PRN ×2 (02:57→17:59)
[2019-01-23 04:33] LABS: Mean Corpuscular Volume 83.4 fL (83.0-100.0)
[2019-01-23 04:34] LABS: Basophils # 0.1 K/mcL (0.0-0.2); Basophils % 0.7 %; Eosinophils # 0.3 K/mcL (0.0-0.6); Eosinophils % 4.6 %; Hematocrit 30.2 % (37.5-50.1); Immature Granulocytes % 0.7 % (0-4); Immature Platelets 4.2 % (1.1-6.1); Lymphocytes # 0.4 K/mcL (0.6-4.6); Lymphocytes % 6.3 %; Mean Corpuscular HGB Conc 29.8 g/dL (31.6-35.5); Mean Corpuscular Hemoglobin 24.9 pg (28.0-33.3); Mean Platelet Volume 9.6 fL (9.4-12.4); Monocytes # 0.7 K/mcL (0.0-1.3); Monocytes % 10.6 %; Neutrophils # 5.4 K/mcL (1.6-8.9); Red Blood Count 3.62 M/mcL (4.19-5.50); Red Cell Distribution Width 19.3 % (11.5-14.5); Segmented Neutrophils % 77.1 %
[2019-01-23 04:35] LABS: Platelet Count 93 K/mcL (140-400)
[2019-01-23 04:46] LABS: BUN/Creatinine Ratio 16 (6-26); Blood Urea Nitrogen 10 mg/dL (8-23); Carbon Dioxide 34 mEq/L (23-29); Chloride 92 mEq/L (98-107); Glucose 123 mg/dL (70-105); Magnesium 1.7 mg/dL (1.6-2.6); Osmolality,Calculated 278 (280-300); Phosphorous 3.1 mg/dL (2.7-4.5); Potassium 3.9 mEq/L (3.5-5.1); Sodium 134 mEq/L (136-145); eGFR For Non-African Americans > 60 (> 60)
[2019-01-23 08:31] LABS: F-Actin (sm muscle) Ab IgG 6 Units (0-19)
[2019-01-23] MEDS: Folic Acid 1 MG TABLET PO SCH (09:59)
[2019-01-23] MEDS: Spironolactone 25 MG TABLET PO SCH (10:00)
[2019-01-23] MEDS: Vitamin B Complex/Vit C/Vit E 1 EACH TABLET PO SCH (10:00)
[2019-01-23] MEDS: Thiamine (B-1) 100 MG TABLET PO SCH (10:00)
[2019-01-23] MEDS: Furosemide 40 MG TABLET PO SCH ×2 (10:00→17:59)
[2019-01-23] MEDS: metroNIDAZOLE 500 MG TABLET PO SCH (10:00)
[2019-01-23] MEDS: Fluconazole 100 MG TABLET PO SCH (10:01)
--- NOTE | 2019-01-23 12:04 | Discharge Summary ---
- NOTES TO OUTPATIENT PROVIDER Notes to Outpatient Provider: Have a repeat cbc within a week of hospital discharge. Orders not resulted at time of discharge: Pending orders 01/19/19 21:16 Culture,Sputum with Gram Stain [RM] Stat 01/19/19 23:29 Culture,Blood [BC] Stat 01/20/19 06:00 ECG 12 lead ECG [ECG] AM 0600 01/20/19 12:16 Cytology [PTH] Routine Date of Encounter: 01/23/19 Time of Encounter: 12:01 - Discharge Diagnosis (1) GI bleed Priority: Primary Status: Resolved Qualifiers: GI bleed type/associated pathology: unspecified gastrointestinal hemorrhage type Qualified Code(s): K92.2 - Gastrointestinal hemorrhage, unspecified (2) Cirrhosis Priority: Secondary Status: Chronic Qualifiers: Hepatic cirrhosis type: alcoholic cirrhosis Ascites presence: with ascites Qualified Code(s): K70.31 - Alcoholic cirrhosis of liver with ascites (3) Alcohol abuse Priority: Secondary Status: Chronic (4) Pneumonia Priority: Secondary Status: Suspected Qualifiers: Pneumonia type: due to unspecified organism Laterality: right Lung location: lower lobe of lung Qualified Code(s): J18.1 - Lobar pneumonia, u nspecified organism (5) Atrial tachycardia Priority: Secondary Status: Chronic (6) COPD (chronic obstructive pulmonary disease) Priority: Secondary Status: Chronic Qualifiers: COPD type: emphysema Emphysema type: panlobular Qualified Code(s): J43.1 - Panlobular emphysema (7) DM2 (diabetes mellitus, type 2) Priority: Secondary Status: Chronic Qualifiers: Diabetes mellitus retirement insulin use: without retirement use Diabetes mellitus complication status: without complication Qualified Code(s): E11.9 - Type 2 diabetes mellitus without complications (8) HLD (hyperlipidemia) Priority: Secondary Status: Chronic Qualifiers: Hyperlipidemia type: unspecified Qualified Code(s): E78.5 - Hyperlipidemia, unspecified (9) Esophageal candidiasis Priority: Secondary Status: Acute (10) CHF (congestive heart failure) Priority: Secondary Status: Chronic Qualifiers: Heart failure type: systolic Heart failure chronicity: chronic Qualified Code(s): I50.22 - Chronic systolic (congestive) heart failure Hospital course: Mr. Love is a 63 year old male PMH of aortic aneurysm, atrial fibrillation, CHF, COPD, coronary artery disease, CVA, diabetes, GERD, hyperlipidemia, hypertension, myocardial infarction, peripheral artery disease, SVT. who presents to the ER by referral from his PCP for concerns of melena, hematochezia, and significant weight gain over the last several weeks. Workup in ER revealed patient to be profoundly anemic. He appeared to be hemodynamically stable. occult blood test positive. patient was admitted to the hospital due to GI bleed, due to concern of possible esophageal varices the patient was started on a PPI and Octreotide drip. Patient was transfused 3 units of PRBCs. GI consulted. Patient underwent EGD: Grade 1 esophageal varices. Portal hypertensive gastropathy. Normal examined duodenum. Gastric antral vascular acid. And esophageal candidiasis. Colonoscopy? . CT/CT abd pelvis w iv no oral IMPRESSION: Moderate to large volume ascites. Peripherally nodular appearance to the liver is suggestive of cirrhosis. Gastrohepatic varices. Dense atherosclerotic calcifications of the aorta and the bilateral iliac vessels. Near complete occlusion of the distal aorta at the bifurcation. Small right adrenal nodule measuring 1.2 cm. Severe degenerative disease of the lumbar spine. Avascular necrosis of the right femoral head. Moderate pleural effusion. Severe atherosclerosis of the aorta and its branches. Near complete occlusion of the aorta at its bifurcation. IR consulted, patient underwent 4.5 litters of fluids removed. Patient was started on spironolactone as part of his edema is believe to be due to liver cirrhosis. Patient was also treated for suspected pneumonia with IV antibiotics. Patient is hemodynamically stable to be discharged home. - Time Spent with Patient Total time spent providing and/or coordinating discharge services: Time spent: Greater than 30 minutes (35) - Discharge Medications Prescriptions: New Spironolactone [Aldactone] 50 mg PO DAILY 30 Days #30 tablet Fluconazole [Diflucan] 100 mg PO DAILY 9 Days #9 tablet Omeprazole [PriLOSEC] 40 mg PO DAILY@0630 30 Days #30 capsule.dr Continued Cyclobenzaprine HCl 5 mg PO TID PRN PRN Reason: MUSCLE SPASMS Nitroglycerin 0.4 mg SL AD PRN PRN Reason: Chest Pain Cilostazol [Pletal] 100 mg PO BID Atorvastatin [Lipitor] 40 mg PO DAILY Isosorbide MONOnitrate (24 HR) [Imdur] 30 mg PO DAILY Furosemide [Lasix] 40 mg PO BID #60 tablet Metoprolol [Lopressor] 25 mg PO BID #60 tablet FLUoxetine HCl [Sarafem] 20 mg PO DAILY Albuterol Sulfate [Albuterol Inhaler] 2 puff IH Q4-6H PRN PRN Reason: Shortness Of Breath Ferrous Sulfate 325 mg PO BID Discontinued Lisinopril [Zestril] 20 mg PO DAILY hydroCHLOROthiazide [Hydrochlorothiazide] 25 mg PO QAM Potassium Chloride [K-Tab ER] 20 meq PO DAILY Home Medications: Cyclobenzaprine HCl 5 mg PO TID PRN 03/12/16 [History] Nitroglycerin 0.4 mg SL AD PRN 03/12/16 [History] Atorvastatin [Lipitor] 40 mg PO DAILY 03/15/18 [History] Cilostazol [Pletal] 100 mg PO BID 03/15/18 [History] Isosorbide MONOnitrate (24 HR) [Imdur] 30 mg PO DAILY 11/18/18 [History] Furosemide [Lasix] 40 mg PO BID #60 tablet 11/20/18 [Rx] Metoprolol [Lopressor] 25 mg PO BID #60 tablet 11/20/18 [Rx] FLUoxetine HCl [Sarafem] 20 mg PO DAILY 12/23/18 [History] Albuterol Sulfate [Albuterol Inhaler] 2 puff IH Q4-6H PRN 01/19/19 [History] Ferrous Sulfate 325 mg PO BID 01/19/19 [History] Fluconazole [Diflucan] 100 mg PO DAILY 9 Days #9 tablet 01/23/19 [Rx] Omeprazole [PriLOSEC] 40 mg PO DAILY@0630 30 Days #30 capsule. 01/23/19 [Rx] Spironolactone [Aldactone] 50 mg PO DAILY 30 Days #30 tablet 01/23/19 [Rx] Allergies/Adverse Reactions: Allergy/AdvReac Type Severity Reaction Status Date / Time No Known Allergies Allergy Verified 01/19/19 20:30 Date of admission: 01/19/19 21:20 Primary care physician: Barbara Otero CNP Consults: 01/19/19 19:47 Consult to Gastroenterology [CONS] Stat Consulting Provider: Gastroenterology Arianne Reason for Consult: GIB - spoke with Dr. Wharton who requested clear liquid diet with plan for scope tomorrow. Time Notified: 20:03 Call Completed: Yes 01/22/19 10:31 Consult to Physical Therapy [CONS] Routine Comment: Evaluate, develop and implement POC Reason for Consult: weakness Does patient have active BEDREST order?: No Is patient medically & hemodynamically stable?: Yes 01/22/19 10:32 Consult to Occupational Therapy [CONS] Routine Comment: Evaluate, develop and implement POC Reason for Consult: weakness Does patient have active BEDREST order?: No Is patient medically & hemodynamically stable?: Yes - Constitutional Vitals: Temp Pulse Resp BP Pulse Ox 98.4 F 79 18 137/74 97 01/23/19 09:50 01/23/19 09:50 01/23/19 09:50 01/23/19 09:50 01/23/19 09:50 General appearance: Present: cooperative, A&O X 3, pleasant, no acute distress, answers questions appropriately Exam: Vitals: Reviewed General: Alert and oriented x3. In no distress. Cardiovascular: RRR, normal S1 & S2, no rubs, murmurs or gallops. No JVD. Lungs: CTA b/l, no wheezes or crackles. Abdomen: Distended, Soft, non-tender, no rigidity. Hyperactive bowel sounds. healed chronic post surgical changes. Extremities: anasarca Neurological: Normal cognition Rest of the physical exam is non contributory - Patient Status Disposition: Home, Self-Care Condition: Fair Functional capacity at discharge: independent ambulation Overall status at discharge: patient is progressing back to baseline - Discharge Instructions Follow Up With: Barbara Otero CNP [Primary Care Provider] - Forms: ED Satisfaction Letter - Diet and Activity Activity: as per physical therapy, resume usual activities as tolerated Diet: low salt diet
--- NOTE | 2019-01-23 17:06 | Event Note ---
Date of Encounter: 01/23/19 Time of Encounter: 17:30 Patient could not have his colonoscopy done today because he was not prepped ( did not drink the prep) hemoglobin is stable and most probably his anemia is due to anemia of chronic disease. Recommendation: We will hold on colonoscopy and he to follow up with me as an outpatient for ongoing Care for cirrhosis
[2019-01-24] MEDS: Insulin LISPRO 300 UNITS/3 ML VIAL SQ SCH ×3 (00:22→12:00)
--- NOTE | 2019-01-24 08:43 | Event Note ---
Date of Encounter: 01/24/19 Time of Encounter: 08:39 I have seen and evaluated the patient at bedside. patient reports feeling tired. denies shortness of breath or abdominal pain. denies nausea or vomiting. Physical exam: Vitals: reviewed General: Alert and oriented x3. In no distress. Cardiovascular: RRR, normal S1 & S2, no rubs, murmurs or gallops. No JVD. Lungs: CTA b/l, no wheezes or crackles. Abdomen: Distended, Soft, non-tender, no rigidity. NABS in all 4 quadrants Extremities: anasarca Neurological: Normal cognition Rest of the physical exam is non contributory Assessment: 1. GI bleed (resolved) 2. Esophageal candidiasis 3. CHF 4. Hyperlipidemia 5. Diabetes 6. COPD 7. Atrial tachycardia 8. Liver cirrhosis 9. Alcohol abuse 10. VTE prophylaxis Plan patient discharged home. H&H stable. GI recommended outpatient follow up for colonoscopy and management of the liver cirrhosis. DC summary dictated yesterday. Patient refused PT/OT evaluation.
[2019-01-24] MEDS ORDERED: Isosorbide MONOnitrate (24 HR) 30 MG TAB.ER.24H PO SCH (09:00)
[2019-01-24] MEDS: Spironolactone 25 MG TABLET PO SCH (09:09)
[2019-01-24] MEDS: Vitamin B Complex/Vit C/Vit E 1 EACH TABLET PO SCH (09:09)
[2019-01-24] MEDS: Fluconazole 100 MG TABLET PO SCH (09:09)
[2019-01-24] MEDS: Furosemide 40 MG TABLET PO SCH (09:09)
[2019-01-24] MEDS: Folic Acid 1 MG TABLET PO SCH (09:09)
[2019-01-24] MEDS: Thiamine (B-1) 100 MG TABLET PO SCH (09:09)
[2019-01-24 09:24] LABS: Basophils % 0.7 %; Mean Corpuscular HGB Conc 29.5 g/dL (31.6-35.5); Mean Platelet Volume 9.9 fL (9.4-12.4)
[2019-01-24 09:26] LABS: Eosinophils # 0.4 K/mcL (0.0-0.6); Eosinophils % 6.7 %; Hematocrit 29.5 % (37.5-50.1); Hemoglobin 8.7 g/dL (12.9-16.9); Immature Granulocytes % 0.7 % (0-4); Immature Platelets 4.7 % (1.1-6.1); Lymphocytes # 0.4 K/mcL (0.6-4.6); Lymphocytes % 6.9 %; Mean Corpuscular Hemoglobin 24.6 pg (28.0-33.3); Mean Corpuscular Volume 83.3 fL (83.0-100.0); Monocytes # 0.5 K/mcL (0.0-1.3); Monocytes % 8.9 %; Neutrophils # 4.2 K/mcL (1.6-8.9); Red Blood Count 3.54 M/mcL (4.19-5.50); Red Cell Distribution Width 19.1 % (11.5-14.5); Segmented Neutrophils % 76.1 %
[2019-01-24 09:43] LABS: Platelet Count 89 K/mcL (140-400)
[2019-01-24 11:18] VITALS: BP 105/60
== END 2019-01-24 12:48 | disposition home or self-care (01) | DRG 377 ==
LOC: 3ANU 14:48 → EMEROOARM 14:48 → 3ANU 20:55 → SUATTDRO 21:20
PROVIDERS: ADMIT Family Medicine; ATTEND Internal Medicine

== ENCOUNTER 2019-02-28 16:15 | Inpatient (IN) ==
[2019-02-28 23:41] LABS: Hematocrit 24.5 % (37.5-50.1); Hemoglobin 7.3 g/dL (12.9-16.9); Mean Corpuscular HGB Conc 29.8 g/dL (31.6-35.5); Mean Corpuscular Volume 100.8 fL (83.0-100.0); Mean Platelet Volume 9.8 fL (9.4-12.4); Platelet Count 117 K/mcL (140-400); Red Blood Count 2.43 M/mcL (4.19-5.50); Red Cell Distribution Width 21.5 % (11.5-14.5)
[2019-03-01] MEDS ORDERED: Naloxone 0.4 MG/ML INJ IVP PRN (01:54)
--- NOTE | 2019-03-01 02:04 | Internal Med History&Physical ---
Date of Encounter: 03/01/19 Time of Encounter: :30 Internal Medicine - H&P: HPI Chief complaint: Anemia, GI bleed Admitted From: Hospital to Hospital Transfer Plans for Post Hospital Care: Home History of present illness: Mr. 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 He was recently admitted to the hospital a few weeks ago for anemia as well, secondary to alcoholic cirrhosis. 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 He was discharged on January 23. He had follow-up blood work, and that is when it was noted that his hemoglobin had continued to decline. He has had consistently dark stools for several months as well as bright red blood with wiping. He denies other symptoms such as vision changes, dizziness and falls. [facility] vital signs: Temperature 99.4, pulse 74, respiratory rate 16, blood pressure 121/57, O2 saturation 90% on room air. CBC: White count 5.5, hemoglobin 6.6, hematocrit 22.3, platelets 112. BMP: Sodium 131, potassium 5.4, chloride 97, carbon dioxide 28, BUN 31, creatinine 1.03. Glucose 113. Lactic acid 1.8 Liver function tests within normal limits He was transfused 1 unit of PRBCs and transferred to [facility] for further management. Upon my evaluation, patient is sitting up at bedside in no acute distress. He states that he has chest pain which she has had for several years as well as abdominal pain due to the swelling. He denies nausea, vomiting, diarrhea and constipation. Repeat hemoglobin upon arrival was 7.3. He is a full code. Past Med Surg Social Fam HX - Past Medical History Medical history: aortic aneurysm, atrial fibrillation, CHF, COPD, coronary artery disease, CVA, diabetes, GERD, hyperlipidemia, hypertension, myocardial infarction, peripheral artery disease, SVT, other Additional medical history: Ablation Cardiac, WPW Psychiatric history: no psych history - Past Surgical History Surgical History: appendectomy, LE Bypass, LE stent(s), LE vascular intervention Additional surgical history: R. Ankle plate. Bilateral Leg Stents - Social History Smoking Status: Former smoker Smokeless Tobacco Status: No Alcohol use: occasionally, heavy Drug use: none - Family History Mother Adopted: No Family Member Ethnicity: Non- Living Status: Hx Family Cardiac Disorders: Yes Hx Family Respiratory Disorders: Yes Hx Family Cancer: No Hx Family GI Disorders: No Hx Family Endocrine Disorder: Yes Hx Family Neuromuscular Disorders: No Hx Family Neurologic Disorders: No Hx Family HEENT Disorders: No Hx Family Autoimmune Disorders: No Father Adopted: No Family Member Ethnicity: Non- Living Status: Hx Family Cardiac Disorders: Yes Hx Family Respiratory Disorders: No Hx Family Cancer: No Hx Family GI Disorders: No Hx Family Endocrine Disorder: No Hx Family Neuromuscular Disorders: No Hx Family Neurologic Disorders: No Hx Family HEENT Disorders: No Hx Family Autoimmune Disorders: No Internal Medicine - H&P: Meds Cyclobenzaprine HCl 5 mg PO TID PRN 03/12/16 [History] Nitroglycerin 0.4 mg SL AD PRN 03/12/16 [History] Atorvastatin [Lipitor] 40 mg PO DAILY 03/15/18 [History] Cilostazol [Pletal] 100 mg PO BID 03/15/18 [History] Isosorbide MONOnitrate (24 HR) [Imdur] 30 mg PO DAILY 11/18/18 [History] Furosemide [Lasix] 40 mg PO BID #60 tablet 11/20/18 [Rx] Metoprolol [Lopressor] 25 mg PO BID #60 tablet 11/20/18 [Rx] FLUoxetine HCl [Sarafem] 20 mg PO DAILY 12/23/18 [History] Albuterol Sulfate [Albuterol Inhaler] 2 puff IH Q4-6H PRN 01/19/19 [History] Ferrous Sulfate 325 mg PO BID 01/19/19 [History] Allergy/AdvReac Type Severity Reaction Status Date / Time No Known Allergies Allergy Verified 01/19/19 20:30 All Systems PM: A 10-system review of systems was performed and is negative for pertinent findings except as documented above in the HPI. - Constitutional Vitals: Temp Pulse Resp BP Pulse Ox 98.6 F 63 16 122/62 99 02/28/19 23:06 02/28/19 23:06 02/28/19 23:06 02/28/19 23:06 02/28/19 23:06 General appearance: Present: cooperative, A&O X 3, pleasant, no acute distress, answers questions appropriately Exam: Patient seems irritated that he has once again returned to the hospital. - Head Head exam: Present: normal inspection - Eye Eye exam: Present: EOMI, normal appearance - Respiratory Respiratory exam: Present: decreased breath sounds, CTAB. Absent: rales, respiratory distress, rhonchi, wheezes - Cardiovascular Cardiovascular exam: Present: RRR, systolic murmur. Absent: diastolic murmur Additional comments: Grade 2 systolic murmur - GI/Abdominal GI/Abdominal exam: Present: distended, normal bowel sounds, soft. Absent: tenderness - Extremities Exam Extremities exam: Present: pedal edema, warm, radial pulses palpable and symmetrical. Absent: tenderness Additional comments: 1-2+ pitting edema bilaterally in the lower extremities - Neurological Exam Neurological exam: Present: no focal deficits, strengths equal and symetr throughout. Absent: motor sensory deficit, facial droop, speech deficit - Skin Skin exam: Present: erythema, normal color, warm Additional comments: Lower extremity erythema associated with swelling Internal Med - H&P Results - Labs CBC & Chem 7: 02/28/19 22:54 Labs: Short CBC 02/28/19 Range/Units 22:54 WBC 7.0 (4.3-11.1) K/mcL Hgb 7.3 L (12.9-16.9) g/dL Hct 24.5 L (37.5-50.1) % Plt Count 117 L (140-400) K/mcL - Assessment and Plan (1) Low hemoglobin Current Visit: No Status: Acute Assessment and plan: Secondary to GI bleed. Management as below. Transfuse 1 unit at [place] emergency room. (2) GI bleeding Current Visit: No Status: Acute Assessment and plan: Patient recently had an admission for GI bleed about one month ago. At that time patient's hemoglobin was 6.7 but did improve after transfusions. He was scoped by gastroenterology at that time. His hemoglobin had been monitored since discharge. Patient continues to have dark colored stools as well as bright red blood with wiping. Transfused 1 unit of PRBCs at [facility], and hemoglobin improved to 7.3 from 6.6. Repeat hemoglobin in the morning Transfuse if indicated GI consult in the morning Nothing by mouth Qualifiers: GI bleed type/associated pathology: unspecified gastrointestinal hemorrhage type Qualified Code(s): K92.2 - Gastrointestinal hemorrhage, unspecified (3) Bilateral leg edema Current Visit: No Status: Acute Assessment and plan: Lower extremity edema, patient takes 40 mg twice a day of Lasix. Hold by mouth Lasix, give 40 mg IV Lasix in the morning (4) A-fib Current Visit: No Status: Chronic Assessment and plan: Currently controlled patient takes metoprolol and is not on anticoagulation secondary to GI bleeds. Continue to monitor Qualifiers: Atrial fibrillation type: paroxysmal Qualified Code(s): I48.0 - Paroxysmal atrial fibrillation (5) Alcohol abuse Current Visit: No Status: Chronic Assessment and plan: Patient indicates that he has not had anything to drink recently. Continue to monitor (6) DM2 (diabetes mellitus, type 2) Current Visit: No Status: Chronic Assessment and plan: Patient is not an insulin dependent diabetic Monitor sugars every 6 hours Nothing by mouth Low dose insulin sliding scale as needed Hold home meds. 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
[2019-03-01] MEDS ORDERED: D5% in Water 1,000 ML IVC PRN (02:06)
[2019-03-01] MEDS ORDERED: *HR* Dextrose 50 % in Water (Syg) 50 ML SYRINGE IVP PRN (02:06)
[2019-03-01] MEDS ORDERED: Dextrose Gel 15 GM/37.5 ML TUBE PO PRN ×2 (02:06)
[2019-03-01] MEDS ORDERED: *HR* Promethazine 25 MG/ML VIAL IVP ONE (04:49)
[2019-03-01] MEDS: Insulin LISPRO 300 UNITS/3 ML VIAL SQ SCH ×3 (05:10→18:35)
[2019-03-01 05:31] LABS: Hemoglobin 6.9 g/dL (12.9-16.9); Mean Corpuscular Hemoglobin 29.9 pg (28.0-33.3); Mean Corpuscular Volume 99.6 fL (83.0-100.0); Mean Platelet Volume 9.8 fL (9.4-12.4); Platelet Count 110 K/mcL (140-400); Red Blood Count 2.31 M/mcL (4.19-5.50); Red Cell Distribution Width 21.2 % (11.5-14.5); White Blood Count 6.8 K/mcL (4.3-11.1)
[2019-03-01 05:40] LABS: INR 1.3; Prothrombin Time 14.7 Seconds (9.4-12.1)
[2019-03-01 06:43] LABS: Alanine Aminotransferase 7 Units/L (7-52); Albumin 3.8 g/dL (3.5-5.7); Albumin/Globulin Ratio 1.9 (1.1-2.2); Alkaline Phosphatase 71 Units/L (34-104); Aspartate Amino Transferase 13 Units/L (13-39); BUN/Creatinine Ratio 37 (6-26); Blood Urea Nitrogen 28 mg/dL (8-23); Calcium 8.8 mg/dL (8.6-10.3); Carbon Dioxide 26 mEq/L (23-29); Chloride 98 mEq/L (98-107); Glucose 122 mg/dL (70-105); Osmolality,Calculated 281 (280-300); Potassium 5.3 mEq/L (3.5-5.1); Sodium 132 mEq/L (136-145); Total Protein 5.8 g/dL (6.4-8.9); Troponin I < 0.03 ng/mL (< 0.04); eGFR For African Americans > 60 (> 60); eGFR For Non-African Americans > 60 (> 60)
[2019-03-01] MEDS: Pantoprazole 40 MG VIAL IVP SCH ×2 (09:45→19:06)
[2019-03-01] MEDS: Furosemide 40 MG/4 ML VIAL IVP SCH (10:08)
[2019-03-01] MEDS: *HR* HYDROcodone/Acet 5/325 mg TABLET PO PRN (13:00)
--- NOTE | 2019-03-01 15:35 | Gastroenterology Consult Note ---
<Wilfrido Camarillon Emmy - Last Filed: 03/01/19 15:32> Date of Encounter: 03/01/19 Time of Encounter: 10:15 - Assessment and plan (1) Anemia Status: Acute Assessment and plan: patient has a history of esophageal varices. We will proceed with EGD and colonoscopy tomorrow to rule out esophagitis, gastritis, duodenitis, peptic ulcer disease, Khalida-Murdock tear, and AVM. Monitor H&H, transfuse as needed. (2) Cirrhosis Status: Chronic Assessment and plan: 3-year-old male with alcoholic cirrhosis. Recent EGD showed Grade I esophageal varices. He presented with bright bleeding and melena stools. Child Houser score B, DF 13, meld sodium score 37. Steroids not indicated at this time Qualifiers: Hepatic cirrhosis type: alcoholic cirrhosis Ascites presence: with ascites Qualified Code(s): K70.31 - Alcoholic cirrhosis of liver with ascites (3) Alcohol abuse Status: Chronic (4) GI bleeding Status: Acute Qualifiers: GI bleed type/associated pathology: unspecified gastrointestinal hemorrhage type Qualified Code(s): K92.2 - Gastrointestinal hemorrhage, unspecified - Time Spent With Patient Total time spent is greater than 50% in coordination of care (as documented) at patient's floor/unit and/or counseling patient: GI History of Present Illness - Data of Consult Patient: known to practice within the last 3 years Consult date: 03/01/19 Requesting Physician: Zenia Arriaga - Consult Narrative Reason for consult: cirrhosis, anemia History of present illness: Mr. Love is a 63 year old male with a history of alcoholic cirrhosis. He was recently hospitalized with anemia, An EGD was performed time that revealed grade 1 varices in the lower third of the esophagus, and mild GAVE. He was discharged on January 23. He saw Dr Perez in office last week and follow-up blood work was ordered and he was noted to have decreasing hgb and was advised to go to the ER. He reports consistently dark stools for several months as well as bright red blood with wiping. He also complains of abdominal pain, ascites, nausea and vomiting.. CBC: White count 5.5, hemoglobin 6.6, hematocrit 22.3, platelets 112. BMP: Sodium 131, potassium 5.4, chloride 97, carbon dioxide 28, BUN 31, creatinine 1.03. Glucose 113. Lactic acid 1.8 Liver function tests within normal limits. Repeat hemoglobin upon arrival was 7.3. He is a full code. Procedures: EGD 01/20/2019 grade 1 varices, portal hyper tentative gastropathy, normal duodenum. Mild GAVE. Esophageal candidiasis colonoscopy 06/19/[address] Pro diverticulosis, three 4-8 mm tubular adenomas anticoagulants none NSAIDS none Past Med Surg Social Fam HX - Past Medical History Medical history: aortic aneurysm, atrial fibrillation, CHF, COPD, coronary artery disease, CVA, diabetes, GERD, hyperlipidemia, hypertension, myocardial infarction, peripheral artery disease, SVT, other Additional medical history: Ablation Cardiac, WPW Psychiatric history: no psych history - Past Surgical History Surgical History: appendectomy, LE Bypass, LE stent(s), LE vascular intervention Additional surgical history: R. Ankle plate. Bilateral Leg Stents - Social History Smoking Status: Former smoker Smokeless Tobacco Status: No Alcohol use: occasionally, heavy Drug use: none - Family History Mother Adopted: No Family Member Ethnicity: Non- Living Status: Hx Family Cardiac Disorders: Yes Hx Family Respiratory Disorders: Yes Hx Family Cancer: No Hx Family GI Disorders: No Hx Family Endocrine Disorder: Yes Hx Family Neuromuscular Disorders: No Hx Family Neurologic Disorders: No Hx Family HEENT Disorders: No Hx Family Autoimmune Disorders: No Father Adopted: No Family Member Ethnicity: Non- Living Status: Hx Family Cardiac Disorders: Yes Hx Family Respiratory Disorders: No Hx Family Cancer: No Hx Family GI Disorders: No Hx Family Endocrine Disorder: No Hx Family Neuromuscular Disorders: No Hx Family Neurologic Disorders: No Hx Family HEENT Disorders: No Hx Family Autoimmune Disorders: No Review of Systems: GI: as per ANIAK GENERAL: denies fever, has some chills EYES: denies yellow discoloration ENT: denies pain with swallowing or difficulty swallowing CARDIO: see hpi RESP: Shortness of breath with exertion : denies change in color of urine NEURO: weakness HEME: Denies any bruising MS: chronic back and joint pain. DERM: denies rash or itching PSYCH: Denies history of anxiety or depression - Constitutional Vitals: Temp Pulse Resp BP Pulse Ox 99.1 F 71 20 99/52 99 03/01/19 10:19 03/01/19 10:19 03/01/19 10:19 03/01/19 10:19 03/01/19 10:19 Exam: CONSTITUTIONAL:alert, no acute distress.HEAD:normocephalic.EYES: jaundice.NECK:no obvious swelling.HEART:regular rate and rhythm, no murmurs.LUNGS:bilateral poor air entry.ABDOMEN: distended, rounded, ascites noted, large midline scar noted, .RECTAL EXAM:Deferred.EXTREMITIES:no c lubbing, cyanosis or edema, 2+ BLE edema.SKIN:jaundice noted, no stigmata of chronic liver disease.NEUROLOGIC:no obvious focal defect. Results - Labs CBC & Chem 7: 03/01/19 04:42 03/01/19 04:42 Labs: Last Result 03/01/19 04:42 Calcium 8.8 Troponin I < 0.03 Entire Visit 03/01/19 03/01/19 03/01/19 04:42 04:42 04:42 Hgb 6.9 L Hct 23.0 L PT 14.7 H Total Bilirubin 1.0 AST 13 ALT 7 - ABG ABG results: PT/INR, D-dimer PT 14.7 Seconds (9.4-12.1) H 03/01/19 04:42 Consult Discharge Plan - Plan Instructions: Gastrointestinal Bleeding (GEN) Referrals: Martin Gao MD [Partnered Physician] - (Web request sent, please call patient) NONE,PCP [Primary Care Provider] - Prescriptions: HYDROcodone/Acet 5/325 mg [[place] 5-325 mg] 1 tab PO BID PRN 7 Days #15 tab PRN Reason: Pain <Martin Gao - Last Filed: 03/06/19 04:03> Date of Encounter: 03/01/19 - Time Spent With Patient Total time spent is greater than 50% in coordination of care (as documented) at patient's floor/unit and/or counseling patient: GI History of Present Illness - Data of Consult Requesting Physician: eZnia Arriaga - Consult Narrative History of present illness: Mr. Love is a 63 year old male - Constitutional Vitals: Temp Pulse Resp BP Pulse Ox 98.1 F 75 15 119/57 93 03/03/19 19:05 03/03/19 19:05 03/03/19 19:05 03/03/19 19:05 03/03/19 19:05 Results - Labs CBC & Chem 7: 03/04/19 05:43 03/04/19 05:43 - ABG ABG results: PT/INR, D-dimer PT 14.7 Seconds (9.4-12.1) H 03/01/19 04:42 - Attending Attestation Patient with alcoholic cirrhosis by history, esophageal varices albeit grade I by recent EGD comes in with severe anemia. History of above. Plan EGD and colonoscopy. Further recommendations to follow. I have personally performed a face to face evaluation on this patient. I have reviewed and agree with the care plan. History and Exam by me shows:
[2019-03-01] MEDS ORDERED: SODIUM CHLORIDE/NAHCO3/KCL/PEG 4,000 ML SOLN.RECON PO ONE (17:00)
--- NOTE | 2019-03-01 18:15 | Anesthesia Evaluation PreOp ---
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 Other Medical History: Hepatic (cirhosis), GERD, Other (Obese) Anesthesia History: No Prior Anesthetic Complications, Past Anesthesia (aorto- bifem, T&A, R ankle) Alcohol Use: heavy Drug use: none Medications and Allergies Cyclobenzaprine HCl 5 mg PO TID PRN 03/12/16 [History] Nitroglycerin 0.4 mg SL AD PRN 03/12/16 [History] Atorvastatin [Lipitor] 40 mg PO DAILY 03/15/18 [History] Cilostazol [Pletal] 100 mg PO BID 03/15/18 [History] Isosorbide MONOnitrate (24 HR) [Imdur] 30 mg PO DAILY 11/18/18 [History] Furosemide [Lasix] 40 mg PO BID #60 tablet 11/20/18 [Rx] Metoprolol [Lopressor] 25 mg PO BID #60 tablet 11/20/18 [Rx] FLUoxetine HCl [Sarafem] 20 mg PO DAILY 12/23/18 [History] Albuterol Sulfate [Albuterol Inhaler] 2 puff IH Q4-6H PRN 01/19/19 [History] Ferrous Sulfate 325 mg PO BID 01/19/19 [History] Allergy/AdvReac Type Severity Reaction Status Date / Time No Known Allergies Allergy Verified 01/19/19 20:30 - Meds/Allergy Pre-op Review Medications Reviewed: Yes Allergies Reviewed: Yes Beta Blockers on Current Med List: No Anesthesia Results - Labs 03/01/19 04:42 03/01/19 04:42 - Imaging EKG: report reviewed (Atrial-sensed ventricular-paced rhythm No further analysis attempted due to paced rhythm) Anesthesia Exam Vital Signs/O2 Sat, Most Current Temp Pulse Resp BP Pulse Ox 98.7 F 72 16 119/56 100 03/01/19 17:17 03/01/19 17:17 03/01/19 17:17 03/01/19 17:17 03/01/19 17:17 - HEENT Pupil (Motor): Pupils equal, EOMI Mallampati: II Teeth: Poor dentition Oral Opening: Greater than 3 - INDUSTRIAL SPECIALIST LOC: Oriented INDUSTRIAL SPECIALIST Motor: Normal RUE, Normal LUE, Normal RLE, Normal LLE, Normal Face INDUSTRIAL SPECIALIST Sensory: Normal: RUE, LUE, RLE, LLE, Face - Cardiac Rhythm: Regular Murmur: None JVD: No Carotid Bruit: No - Pulmonary Breath Sounds: bilateral Clear Respiratory Effort: Symmetrical Anesthesia Assess/Plan ASA Score: 4 Level of consciousness: Cooperative Anesthetic Plan: MAC Autologous Blood: Yes Monitoring Plan: Standard Monitors Recovery Plan: Other
[2019-03-01] MEDS ORDERED: 0.9 % Sodium Chloride 250 ML ONE (19:58)
[2019-03-02] MEDS ORDERED: 0.9 % Sodium Chloride 250 ML ONE (00:32)
[2019-03-02] MEDS: Insulin LISPRO 300 UNITS/3 ML VIAL SQ SCH ×5 (01:13→23:17)
[2019-03-02 05:49] LABS: Basophils # 0.1 K/mcL (0.0-0.2); Basophils % 0.8 %; Eosinophils # 0.3 K/mcL (0.0-0.6); Eosinophils % 5.2 %; Hematocrit 26.9 % (37.5-50.1); Hemoglobin 8.3 g/dL (12.9-16.9); Immature Granulocytes % 1.1 % (0-4); Lymphocytes # 0.5 K/mcL (0.6-4.6); Lymphocytes % 8.3 %; Mean Corpuscular HGB Conc 30.9 g/dL (31.6-35.5); Mean Corpuscular Hemoglobin 30.3 pg (28.0-33.3); Mean Corpuscular Volume 98.2 fL (83.0-100.0); Monocytes # 0.6 K/mcL (0.0-1.3); Monocytes % 10.1 %; Neutrophils # 4.6 K/mcL (1.6-8.9); Platelet Count 106 K/mcL (140-400); Red Blood Count 2.74 M/mcL (4.19-5.50); Red Cell Distribution Width 19.9 % (11.5-14.5); Segmented Neutrophils % 74.5 %; White Blood Count 6.2 K/mcL (4.3-11.1)
[2019-03-02] MEDS: Pantoprazole 40 MG VIAL IVP SCH ×2 (05:54→16:49)
[2019-03-02] MEDS: Furosemide 40 MG/4 ML VIAL IVP SCH (09:47)
[2019-03-02] MEDS: *HR* Promethazine 25 MG/ML VIAL IVP PRN (09:47)
[2019-03-02] MEDS ORDERED: Propofol 500 MG/50 ML INFUS..BTL ONE (12:19)
--- NOTE | 2019-03-02 15:06 | Internal Med Progress Note ---
Hospitalist Progress Note - Encounter Date of Encounter: 03/02/19 Time of Encounter: 11:05 - Subjective Interval History: Pt states he feels better after transfusion - Exam Vitals: Temp Pulse Resp BP Pulse Ox 98.5 F 68 17 123/60 93 03/02/19 14:28 03/02/19 14:28 03/02/19 14:28 03/02/19 14:28 03/02/19 14:28 Exam: General appearance: Present: cooperative, A&O X 3, pleasant, no acute distress, answers questions appropriately Exam: Patient seems irritated that he has once again returned to the hospital. Head exam: Present: normal inspection Eye exam: Present: EOMI, normal appearance Respiratory exam: Present: decreased breath sounds, CTAB. Absent: rales, re spiratory distress, rhonchi, wheezes Cardiovascular exam: Present: RRR, Grade 2 systolic murmur. Absent: diastolic murmur GI/Abdominal exam: Present: rotund/obese, normal bowel sounds, soft. Absent: tenderness Extremities exam: Present: pedal edema, warm, radial pulses palpable and symmetrical. Absent: tenderness Additional comments: 1-2+ pitting edema bilaterally in the lower extremities Neurological exam: Present: no focal deficits, strengths equal and symetr throu ghout. Absent: motor sensory deficit, facial droop, speech deficit - Skin Skin exam: Present: erythema, normal color, warm Additional comments: Lower extremity erythema associated with swelling - Assessment and Plan (1) GI bleeding Current Visit: No Status: Acute Assessment and Plan: Patient recently had an admission for GI bleed about one month ago. At that time patient's hemoglobin was 6.7 but did improve after transfusions. He was scoped by gastroenterology at that time. His hemoglobin had been monitored since discharge. Patient continues to have dark colored stools as well as bright red blood with wiping. Transfused 1 unit of PRBCs at [facility], and hemoglobin improved to 7.3 from 6.6 but dropped aain to 6.9. Transfused 2 more units 03/01/19 and Hgb up from 6.9 to 8.3. Repeat hemoglobin in the morning Transfuse if indicated. Seen by GI and planing for EGD and colonoscopy (2) Bilateral leg edema Current Visit: No Status: Acute Assessment and Plan: Lower extremity edema, patient takes 40 mg twice a day of Lasix. Holding by mouth Lasix. On Lasix 40 mg IV Daily (3) DM2 (diabetes mellitus, type 2) Current Visit: No Status: Chronic Assessment and Plan: Patient is not an insulin dependent diabetic Monitor sugars every 6 hours. Nothing by mouth Low dose insulin sliding scale as needed Hold home meds. (4) A-fib Current Visit: No Status: Chronic Assessment and Plan: Currently controlled patient takes metoprolol and is not on anticoagulation secondary to GI bleeds. Continue to monitor (5) Low hemoglobin Current Visit: No Status: Acute Assessment and Plan: Secondary to GI bleed. Given 2 units of blood 03/01/19 and Hgb up from 6.9 to 8.3. Transfused 1 unit at [facility] emergency room. (6) Alcohol abuse Current Visit: No Status: Chronic Assessment and Plan: Patient indicates that he has not had anything to drink recently. Continue to monitor - Time Spent with Patient Total time spent is greater than 50% in coordination of care (as documented) at patient's floor/unit and/or counseling patient: Internal Medicine: Result - Labs CBC & Chem 7: 03/02/19 05:11 03/01/19 04:42 Labs: Short CBC 03/02/19 Range/Units 05:11 WBC 6.2 (4.3-11.1) K/mcL Hgb 8.3 L (12.9-16.9) g/dL Hct 26.9 L (37.5-50.1) % Plt Count 106 L (140-400) K/mcL Neutrophils # 4.6 (1.6-8.9) K/mcL - ABG Interpretation ABG results: PT/INR, D-dimer PT 14.7 Seconds (9.4-12.1) H 03/01/19 04:42 Consult Discharge Plan - Plan Referrals: NONE,PCP [Primary Care Provider] - (1) GI bleeding Qualifiers: GI bleed type/associated pathology: unspecified gastrointestinal hemorrhage type Qualified Code(s): K92.2 - Gastrointestinal hemorrhage, unspecified (3) DM2 (diabetes mellitus, type 2) Qualifiers: Diabetes mellitus longterm insulin use: without longterm use Diabetes mellitus complication status: without complication Qualified Code(s): E11.9 - Type 2 diabetes mellitus without complications (4) A-fib Qualifiers: Atrial fibrillation type: paroxysmal Qualified Code(s): I48.0 - Paroxysmal atrial fibrillation
[2019-03-03] MEDS: Pantoprazole 40 MG VIAL IVP SCH (05:51)
[2019-03-03] MEDS: *HR* Promethazine 25 MG/ML VIAL IVP PRN (05:51)
[2019-03-03] MEDS: Insulin LISPRO 300 UNITS/3 ML VIAL SQ SCH ×3 (06:15→17:28)
[2019-03-03] MEDS ORDERED: Lidocaine -MPF 2% 2 ML VIAL ONE ×2 (06:36→13:24)
[2019-03-03] MEDS ORDERED: Propofol 500 MG/50 ML INFUS..BTL ONE ×2 (06:37→13:24)
[2019-03-03] MEDS: Furosemide 40 MG/4 ML VIAL IVP SCH (07:35)
[2019-03-03 07:41] LABS: Hemoglobin 8.1 g/dL (12.9-16.9); Mean Corpuscular Hemoglobin 29.8 pg (28.0-33.3); Red Blood Count 2.72 M/mcL (4.19-5.50)
[2019-03-03 07:43] LABS: Basophils # 0.1 K/mcL (0.0-0.2); Basophils % 1.3 %; Eosinophils # 0.3 K/mcL (0.0-0.6); Eosinophils % 6.3 %; Immature Granulocytes % 1.3 % (0-4); Immature Platelets 1.8 % (1.1-6.1); Lymphocytes # 0.4 K/mcL (0.6-4.6); Lymphocytes % 9.5 %; Mean Corpuscular HGB Conc 31.2 g/dL (31.6-35.5); Mean Corpuscular Volume 95.6 fL (83.0-100.0); Mean Platelet Volume 9.1 fL (9.4-12.4); Monocytes # 0.6 K/mcL (0.0-1.3); Monocytes % 12.1 %; Neutrophils # 3.2 K/mcL (1.6-8.9); Platelet Count 106 K/mcL (140-400); Red Cell Distribution Width 19.1 % (11.5-14.5); Segmented Neutrophils % 69.5 %; White Blood Count 4.6 K/mcL (4.3-11.1)
[2019-03-03 07:44] LABS: Albumin 3.8 g/dL (3.5-5.7); BUN/Creatinine Ratio 17 (6-26); Blood Urea Nitrogen 11 mg/dL (8-23); Calcium 8.9 mg/dL (8.6-10.3); Carbon Dioxide 29 mEq/L (23-29); Chloride 96 mEq/L (98-107); Glucose 111 mg/dL (70-105); Osmolality,Calculated 276 (280-300); Phosphorous 4.5 mg/dL (2.7-4.5); Potassium 4.1 mEq/L (3.5-5.1); Sodium 133 mEq/L (136-145); eGFR For African Americans > 60 (> 60); eGFR For Non-African Americans > 60 (> 60)
--- NOTE | 2019-03-03 14:29 | Anesthesia Evaluation PreOp ---
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 HX Other Medical History: Hepatic (cirrhosis) Anesthesia History: No Prior Anesthetic Complications, Past Anesthesia (aorto- bifem, T&A, R ankle) Alcohol Use: heavy Drug use: none Medications and Allergies Cyclobenzaprine HCl 5 mg PO TID PRN 03/12/16 [History] Nitroglycerin 0.4 mg SL AD PRN 03/12/16 [History] Atorvastatin [Lipitor] 40 mg PO QPM 03/15/18 [History] Cilostazol [Pletal] 100 mg PO BID 03/15/18 [History] Isosorbide MONOnitrate (24 HR) [Imdur] 30 mg PO DAILY 11/18/18 [History] Furosemide [Lasix] 40 mg PO BID #60 tablet 11/20/18 [Rx] FLUoxetine HCl [Sarafem] 20 mg PO QAM 12/23/18 [History] Albuterol Sulfate [Albuterol Inhaler] 2 puff IH Q4-6H PRN 01/19/19 [History] Ferrous Sulfate 325 mg PO BID 01/19/19 [History] Aspirin [Lo-Dose Aspirin EC] 81 mg PO DAILY 03/01/19 [History] Lisinopril [Zestril] 20 mg PO DAILY 03/01/19 [History] Metoprolol Tartrate 50 mg PO DAILY 03/01/19 [History] Omeprazole [PriLOSEC] 40 mg PO 0630 03/01/19 [History] Potassium Chloride [K-Tab ER] 20 meq PO DAILY 03/01/19 [History] Spironolactone [Aldactone] 50 mg PO DAILY 03/01/19 [History] hydroCHLOROthiazide [Hydrochlorothiazide] 25 mg PO QAM 03/01/19 [History] Allergy/AdvReac Type Severity Reaction Status Date / Time No Known Allergies Allergy Verified 03/01/19 20:55 - Meds/Allergy Pre-op Review Medications Reviewed: Yes Allergies Reviewed: Yes Beta Blockers on Current Med List: No Anesthesia Results - Labs 03/03/19 06:59 03/03/19 06:59 - Imaging EKG: report reviewed (Interpretive Statements Atrial-sensed ventricular-paced rhythm No further analysis attempted due to paced rhythm Electronically Signed On 01-20-2019 10:00:47 EDT by Marco Villavicencio) Anesthesia Exam Vital Signs/O2 Sat, Most Current Temp Pulse Resp BP Pulse Ox 97.8 F 68 14 115/65 100 03/03/19 11:28 03/03/19 11:28 03/03/19 11:28 03/03/19 11:28 03/03/19 11:28 Weight: 117kg NPO (# of Hours): >8 - HEENT Pupil (Motor): Pupils equal, EOMI Mallampati: II Teeth: Poor dentition Oral Opening: Greater than 3 - EXTRACTOR OPERATOR LOC: Oriented EXTRACTOR OPERATOR Motor: Normal RUE, Normal LUE, Normal RLE, Normal LLE, Normal Face EXTRACTOR OPERATOR Sensory: Normal: RUE, LUE, RLE, LLE, Face - Cardiac Rhythm: Regular - Pulmonary Breath Sounds: bilateral Clear Respiratory Effort: Symmetrical Anesthesia Assess/Plan ASA Score: 4 Level of consciousness: Cooperative Anesthetic Plan: General, MAC Monitoring Plan: Standard Monitors Recovery Plan: PACU
--- NOTE | 2019-03-03 14:47 | Internal Med Progress Note ---
Hospitalist Progress Note - Encounter Date of Encounter: 03/03/19 Time of Encounter: 14:47 - Subjective Interval History: Pt states he had some more go lytely today and had some BM. He reports nausea. He denies chest pain. He is chronically on 2L [place] at home 29/03. He denies fever, chills, and N/V - Exam Vitals: Temp Pulse Resp BP Pulse Ox 98.3 F 60 16 131/63 93 03/03/19 14:28 03/03/19 14:28 03/03/19 14:28 03/03/19 14:03/03/19 14:28 Exam: General appearance: Present: cooperative, A&O X 3, pleasant, no acute distress, answers questions appropriately Exam: Patient seems irritated that he has once again returned to the hospital. Head exam: Present: normal inspection Eye exam: Present: EOMI, normal appearance Respiratory exam: Present: decreased breath sounds, CTAB. Absent: rales, respiratory distress, rhonchi, wheezes Cardiovascular exam: Present: RRR, Grade 2 systolic murmur. Absent: diastolic murmur GI/Abdominal exam: Present: rotund/obese, normal bowel sounds, soft. Absent: tenderness Extremities exam: Present: pedal edema, warm, radial pulses palpable and symmetrical. Absent: tenderness Additional comments: 1-2+ pitting edema bilaterally in the lower extremities Neurological exam: Present: no focal deficits, strengths equal and symetr throughout. Absent: motor sensory deficit, facial droop, speech deficit Skin exam: Present: erythema, normal color, warm Additional comments: Lower extremity erythema associated with swelling - Assessment and Plan (1) GI bleeding Current Visit: No Status: Acute Assessment and Plan: Patient recently had an admission for GI bleed about one month ago. At that time patient's hemoglobin was 6.7 but did improve after transfusions. He was scoped by gastroenterology at that time. His hemoglobin had been monitored since discharge. Patient continues to have dark colored stools as well as bright red blood with wiping. Transfused 1 unit of PRBCs at [facility], and hemoglobin improved to 7.3 from 6.6 but dropped aain to 6.9. Transfused 2 more units 03/01/19 and Hgb up from 6.9 to 8.3. Repeat hemoglobin in the morning Transfuse if indicated. Seen by GI. EGD and colonoscopy done 03/02/19 EGD showd possible moderate portal HTN and possible gastric varices. Colonoscopy showed stool content and planing to repeat 03/03/19 after more prep. (2) Bilateral leg edema Current Visit: No Status: Acute Assessment and Plan: Lower extremity edema, patient takes 40 mg twice a day of Lasix. Holding by mouth Lasix. On Lasix 40 mg IV Daily. Will consider switch to PO in am. (3) DM2 (diabetes mellitus, type 2) Current Visit: No Status: Chronic Assessment and Plan: Patient is not an insulin dependent diabetic Monitor sugars every 6 hours. Nothing by mouth Low dose insulin sliding scale as needed Hold home meds. (4) A-fib Current Visit: No Status: Chronic Assessment and Plan: Currently controlled patient takes metoprolol and is not on anticoagulation secondary to GI bleeds. Continue to monitor (5) Low hemoglobin Current Visit: No Status: Acute Assessment and Plan: Secondary to GI bleed. Transfused 1 unit at [facility] emergency room. Given 2 units of blood 03/01/19 and Hgb up from 6.9 to 8.3. (6) Alcohol abuse Current Visit: No Status: Chronic Assessment and Plan: Patient indicates that he has not had anything to drink recently. 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 He was recently admitted to the hospital a few weeks ago for anemia as well, secondary to alcoholic cirrhosis. 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 He was discharged on January 23. He had follow-up blood work, and that is when it was noted that his hemoglobin had continued to decline. He has had consistently dark stools for several months as well as bright red blood with wiping. He denies other symptoms such as vision changes, dizziness and falls. - Time Spent with Patient Total time spent is greater than 50% in coordination of care (as documented) at patient's floor/unit and/or counseling patient: less than 15 minutes Plan of Care Discussed with: patient Internal Medicine: Result - Labs CBC & Chem 7: 03/03/19 06:59 03/03/19 06:59 Labs: Short CBC 06/28/19 Range/Units 06:59 WBC 4.6 (4.3-11.1) K/mcL Hgb 8.1 L (12.9-16.9) g/dL Hct 26.0 L (37.5-50.1) % Plt Count 106 L (140-400) K/mcL Neutrophils # 3.2 (1.6-8.9) K/mcL BMP 03/03/19 06:59 Sodium 133 L Potassium 4.1 Chloride 96 L Carbon Dioxide 29 BUN 11 Creatinine 0.66 L Glucose 111 H Calcium 8.9 Liver Function 03/03/19 Range/Units 06:59 Albumin 3.8 (3.5-5.7) g/dL - ABG Interpretation ABG results: PT/INR, D-dimer PT 14.7 Seconds (9.4-12.1) H 03/01/19 04:42 Consult Discharge Plan - Plan Referrals: NONE,PCP [Primary Care Provider] - (1) GI bleeding Qualifiers: GI bleed type/associated pathology: unspecified gastrointestinal hemorrhage type Qualified Code(s): K92.2 - Gastrointestinal hemorrhage, unspecified (3) DM2 (diabetes mellitus, type 2) Qualifiers: Diabetes mellitus senior care insulin use: without terminal system operator use Diabetes mellitus complication status: without complication Qualified Code(s): E11.9 - Type 2 diabetes mellitus without complications (4) A-fib Qualifiers: Atrial fibrillation type: paroxysmal Qualified Code(s): I48.0 - Paroxysmal atrial fibrillation
[2019-03-03] MEDS ORDERED: Insulin LISPRO 300 UNITS/3 ML VIAL SQ SCH (21:00)
[2019-03-03 21:06] VITALS: BP 119/57
[2019-03-04] MEDS: *HR* HYDROcodone/Acet 5/325 mg TABLET PO PRN ×2 (02:25→12:52)
[2019-03-04 06:21] LABS: Immature Granulocytes % 1.2 % (0-4); Red Cell Distribution Width 18.6 % (11.5-14.5)
[2019-03-04 06:23] LABS: Basophils % 0.9 %; Eosinophils # 0.4 K/mcL (0.0-0.6); Eosinophils % 8.1 %; Hematocrit 26.4 % (37.5-50.1); Hemoglobin 8.1 g/dL (12.9-16.9); Immature Platelets 2.3 % (1.1-6.1); Lymphocytes # 0.5 K/mcL (0.6-4.6); Lymphocytes % 11.6 %; Mean Corpuscular HGB Conc 30.7 g/dL (31.6-35.5); Mean Corpuscular Hemoglobin 29.5 pg (28.0-33.3); Mean Platelet Volume 9.4 fL (9.4-12.4); Monocytes # 0.6 K/mcL (0.0-1.3); Monocytes % 13.7 %; Neutrophils # 2.8 K/mcL (1.6-8.9); Platelet Count 103 K/mcL (140-400); Red Blood Count 2.75 M/mcL (4.19-5.50); Segmented Neutrophils % 64.5 %; White Blood Count 4.3 K/mcL (4.3-11.1)
[2019-03-04 06:36] LABS: BUN/Creatinine Ratio 16 (6-26); Blood Urea Nitrogen 13 mg/dL (8-23); Carbon Dioxide 27 mEq/L (23-29); Chloride 94 mEq/L (98-107); Glucose 135 mg/dL (70-105); Osmolality,Calculated 274 (280-300); Phosphorous 4.1 mg/dL (2.7-4.5); Potassium 3.9 mEq/L (3.5-5.1); Sodium 131 mEq/L (136-145); eGFR For African Americans > 60 (> 60); eGFR For Non-African Americans > 60 (> 60)
[2019-03-04] MEDS: Furosemide 40 MG/4 ML VIAL IVP SCH (09:23)
[2019-03-04] MEDS: Insulin LISPRO 300 UNITS/3 ML VIAL SQ SCH (12:47)
--- NOTE | 2019-03-04 14:01 | Discharge Summary ---
- NOTES TO OUTPATIENT PROVIDER Notes to Outpatient Provider: PCP in 5 to 7 days. GI follow up out pt Orders not resulted at time of discharge: Pending orders 03/05/19 04:00 CBC [Complete Blood Count] [HEME] AM 0400 Renal Function Panel AM 0400 Date of Encounter: 03/04/19 Time of Encounter: 13:47 - Discharge Diagnosis (1) GI bleeding Priority: Primary Status: Acute Assessment and Plan: Patient recently had an admission for GI bleed about one month ago. At that time patient's hemoglobin was 6.7 but did improve after transfusions. He was scoped by gastroenterology at that time. His hemoglobin had been monitored since discharge. Patient continued to have dark colored stools as well as bright red blood with wiping. Transfused 1 unit of PRBCs at [facility], and hemoglobin improved to 7.3 from 6.6 but dropped in am to 6.9. Transfused 2 more units 03/01/19 and Hgb up from 6.9 --> 8.3 --> 8.1 and stable. Repeat hemoglobin in the morning. Transfuse if indicated. Seen by GI. EGD and colonoscopy done 03/02/19. EGD showed possible moderate portal HTN and possible gastric varices. Colonoscopy showed stool content and planing to repeat 03/03/19 after more prep. Repeat colonoscopy 03/03/19 showed multiple diverticular were found in the sigmoid colon. Qualifiers: GI bleed type/associated pathology: unspecified gastrointestinal hemorrhage type Qualified Code(s): K92.2 - Gastrointestinal hemorrhage, unspecified (2) Bilateral leg edema Priority: Secondary Status: Acute Assessment and Plan: Lower extremity edema, patient takes 40 mg twice a day of Lasix. Holding by mouth Lasix. On Lasix 40 mg IV Daily. IV Lasix discontinued. Lasix 40 mg PO BID. (3) DM2 (diabetes mellitus, type 2) Priority: Secondary Status: Chronic Assessment and Plan: Patient is not an insulin dependent diabetic Monitor sugars every 6 hours. Nothing by mouth Low dose insulin sliding scale as needed Hold home meds. Qualifiers: Diabetes mellitus long-term insulin use: without supervisor intermediates use Diabetes mellitus complication status: without complication Qualified Code(s): E11.9 - Type 2 diabetes mellitus without complications (4) A-fib Priority: Secondary Status: Chronic Assessment and Plan: Currently controlled patient takes metoprolol and is not on anticoagulation secondary to GI bleeds. Continue to monitor Qualifiers: Atrial fibrillation type: paroxysmal Qualified Code(s): I48.0 - Paroxysmal atrial fibrillation (5) Low hemoglobin Priority: Secondary Status: Acute Assessment and Plan: Secondary to GI bleed. Transfused 1 unit at [facility] emergency room. Given 2 units of blood 03/01/19 and Hgb up from 6.9 to 8.3. (6) Alcohol abuse Priority: Secondary Status: Chronic Assessment and Plan: Patient indicates that he has not had anything to drink recently. 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 He was recently admitted to the hospital a few weeks ago for anemia as well, secondary to alcoholic cirrhosis. 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 He was discharged on January 23. He had follow-up blood work, and that is when it was noted that his hemoglobin had continued to decline. He has had consistently dark stools for several months as well as bright red blood with wiping. He denies other symptoms such as vision changes, dizziness and falls. Discharge discussed with: patient - Time Spent with Patient Total time spent providing and/or coordinating discharge services: Time spent: Greater than 30 minutes - Discharge Medications Prescriptions: No Action Cyclobenzaprine HCl 5 mg PO TID PRN PRN Reason: MUSCLE SPASMS Nitroglycerin 0.4 mg SL AD PRN PRN Reason: Chest Pain Cilostazol [Pletal] 100 mg PO BID Atorvastatin [Lipitor] 40 mg PO QPM Isosorbide MONOnitrate (24 HR) [Imdur] 30 mg PO DAILY Furosemide [Lasix] 40 mg PO BID #60 tablet FLUoxetine HCl [Sarafem] 20 mg PO QAM Albuterol Sulfate [Albuterol Inhaler] 2 puff IH Q4-6H PRN PRN Reason: Shortness Of Breath Ferrous Sulfate 325 mg PO BID Aspirin [Lo-Dose Aspirin EC] 81 mg PO DAILY hydroCHLOROthiazide [Hydrochlorothiazide] 25 mg PO QAM Lisinopril [Zestril] 20 mg PO DAILY Metoprolol Tartrate 50 mg PO DAILY Omeprazole [PriLOSEC] 40 mg PO 0630 Potassium Chloride [K-Tab ER] 20 meq PO DAILY Spironolactone [Aldactone] 50 mg PO DAILY Home Medications: Cyclobenzaprine HCl 5 mg PO TID PRN 03/12/16 [History] Nitroglycerin 0.4 mg SL AD PRN 03/12/16 [History] Atorvastatin [Lipitor] 40 mg PO QPM 03/15/18 [History] Cilostazol [Pletal] 100 mg PO BID 03/15/18 [History] Isosorbide MONOnitrate (24 HR) [Imdur] 30 mg PO DAILY 11/18/18 [History] Furosemide [Lasix] 40 mg PO BID #60 tablet 11/20/18 [Rx] FLUoxetine HCl [Sarafem] 20 mg PO QAM 12/23/18 [History] Albuterol Sulfate [Albuterol Inhaler] 2 puff IH Q4-6H PRN 01/19/19 [History] Ferrous Sulfate 325 mg PO BID 01/19/19 [History] Aspirin [Lo-Dose Aspirin EC] 81 mg PO DAILY 03/01/19 [History] Lisinopril [Zestril] 20 mg PO DAILY 03/01/19 [History] Metoprolol Tartrate 50 mg PO DAILY 03/01/19 [History] Omeprazole [PriLOSEC] 40 mg PO 0630 03/01/19 [History] Potassium Chloride [K-Tab ER] 20 meq PO DAILY 03/01/19 [History] Spironolactone [Aldactone] 50 mg PO DAILY 03/01/19 [History] hydroCHLOROthiazide [Hydrochlorothiazide] 25 mg PO QAM 03/01/19 [History] Allergies/Adverse Reactions: Allergy/AdvReac Type Severity Reaction Status Date / Time No Known Allergies Allergy Verified 03/01/19 20:55 Date of admission: 03/02/19 15:10 Primary care physician: PCP NONE Consults: 03/01/19 01:56 Consult to Gastroenterology [CONS] Routine Consulting Provider: Gastroenterology Arianne Reason for Consult: GI bleed Call Completed: No Discharging clinician: Lidya Johnson Anticipated date of discharge: 03/04/19 - Constitutional Vitals: Temp Pulse Resp BP Pulse Ox 98.1 F 75 15 119/57 93 03/03/19 19:05 03/03/19 19:05 03/03/19 19:05 03/03/19 19:05 03/03/19 19:05 General appearance: Present: cooperative, A&O X 3, pleasant, no acute distress, answers questions appropriately Exam: General appearance: Present: cooperative, A&O X 3, pleasant, no acute distress, answers questions appropriately Exam: Patient seems irritated that he has once again returned to the hospital. Head exam: Present: normal inspection Eye exam: Present: EOMI, normal appearance Respiratory exam: Present: decreased breath sounds, CTAB. Absent: rales, respiratory distress, rhonchi, wheezes Cardiovascular exam: Present: RRR, Grade 2 systolic murmur. Absent: diastolic murmur GI/Abdominal exam: Present: rotund/obese, normal bowel sounds, soft. Absent: tenderness Extremities exam: Present: pedal edema, warm, radial pulses palpable and symmetrical. Absent: tenderness Additional comments: 1-2+ pitting edema bilaterally in the lower extremities Neurological exam: Present: no focal deficits, strengths equal and symetr throughout. Absent: motor sensory deficit, facial droop, speech deficit Skin exam: Present: erythema, normal color, warm Additional comments: Lower extremity erythema associated with swelling - Patient Status Disposition: Home, Self-Care Condition: Fair Overall status at discharge: patient is back to baseline - Discharge Instructions Follow Up With: NONE,PCP [Primary Care Provider] - - Diet and Activity Activity: increase activity as tolerated Diet: diabetic diet, low fat, low cholesterol, low salt diet
[2019-03-04] MEDS ORDERED: Furosemide 40 MG TABLET PO SCH (17:00)
== END 2019-03-04 12:00 | disposition home or self-care (01) | DRG 378 ==
LOC: 3ANU
PROVIDERS: ADMIT Internal Medicine Nephrology; ATTEND Internal Medicine Nephrology

== ENCOUNTER 2020-12-17 14:39 | Inpatient (IN) ==
[2020-12-17] MEDS ORDERED: Isovue-370 500 ML BOTTLE IVP ONE ×2 (15:48→18:14)
[2020-12-17 16:17] LABS: Hemoglobin 11.3 g/dL (12.9-16.9)
[2020-12-17 16:19] LABS: Basophils # 0.1 K/mcL (0.0-0.2); Basophils % 1.1 %; Eosinophils # 0.2 K/mcL (0.0-0.6); Eosinophils % 4.5 %; Hematocrit 36.9 % (37.5-50.1); Immature Granulocytes % 0.7 % (0-4); Immature Platelets 3.4 % (1.1-6.1); Lymphocytes # 0.4 K/mcL (0.6-4.6); Lymphocytes % 7.5 %; Mean Corpuscular HGB Conc 30.6 g/dL (31.6-35.5); Mean Corpuscular Hemoglobin 30.1 pg (28.0-33.3); Mean Corpuscular Volume 98.4 fL (83.0-100.0); Mean Platelet Volume 9.4 fL (9.4-12.4); Monocytes # 0.6 K/mcL (0.0-1.3); Monocytes % 11.2 %; Platelet Count 105 K/mcL (140-400); Red Blood Count 3.75 M/mcL (4.19-5.50); Red Cell Distribution Width 15.9 % (11.5-14.5); White Blood Count 5.3 K/mcL (4.3-11.1)
[2020-12-17 16:47] LABS: Alanine Aminotransferase 13 Units/L (7-52); Albumin 4.1 g/dL (3.5-5.7); Albumin/Globulin Ratio 1.3 (1.1-2.2); Alkaline Phosphatase 102 Units/L (34-104); Amylase 29 Units/L (29-103); Aspartate Amino Transferase 28 Units/L (13-39); BUN/Creatinine Ratio 21 (6-26); Bilirubin,Direct 0.2 mg/dL (0.0-0.2); Bilirubin,Indirect 0.7 mg/dL (0.0-1.0); Bilirubin,Total 0.9 mg/dL (0.3-1.0); Blood Urea Nitrogen 20 mg/dL (8-23); C-Reactive Protein 19 mg/L (Less than 10); Calcium 9.7 mg/dL (8.6-10.3); Carbon Dioxide 32 mEq/L (23-29); Chloride 95 mEq/L (98-107); Globulin 3.2 g/dL (2.4-3.5); Glucose 142 mg/dL (70-105); Lipase 18 Units/L (11-82); Osmolality,Calculated 283 (280-300); Potassium 4.1 mEq/L (3.5-5.1); Sodium 134 mEq/L (136-145); Total Protein 7.3 g/dL (6.4-8.9); Troponin I 0.03 ng/mL (< 0.04); eGFR For African Americans > 60 (> 60); eGFR For Non-African Americans > 60 (> 60)
[2020-12-17] MEDS ORDERED: Piperacillin/Tazobactam 3.375 GM in 0.9 % Sodium Chloride Mini Bag 100 ML IVPB ONE (18:06)
[2020-12-17] MEDS ORDERED: Vancomycin 2,000 MG/520 ML IV.SOLN IVPB ONE (18:06)
[2020-12-17] MEDS ORDERED: 0.9 % Sodium Chloride 500 ML IVC ONE (18:15)
[2020-12-17] MEDS ORDERED: *HR* Heparin 5,000 UNIT/ML VIAL IVP PRN ×2 (20:25)
[2020-12-17] MEDS ORDERED: *HR* Heparin 5,000 UNIT/ML VIAL IVP ONE (20:25)
[2020-12-17] MEDS: Heparin 25,000UNIT/250ML 1/2NS 25,000 UNIT/250 ML IV.SOLN IVC SCH (20:52)
[2020-12-17 20:53] LABS: Red Cell Distribution Width 15.9 % (11.5-14.5)
[2020-12-17 20:55] LABS: Hematocrit 35.5 % (37.5-50.1); Hemoglobin 10.8 g/dL (12.9-16.9); Immature Platelets 3.8 % (1.1-6.1); Mean Corpuscular HGB Conc 30.4 g/dL (31.6-35.5); Mean Corpuscular Hemoglobin 30.1 pg (28.0-33.3); Mean Corpuscular Volume 98.9 fL (83.0-100.0); Mean Platelet Volume 9.6 fL (9.4-12.4); Red Blood Count 3.59 M/mcL (4.19-5.50); White Blood Count 4.8 K/mcL (4.3-11.1)
[2020-12-17 21:03] LABS: Heparin anti-factor XA UFH < 0.04 IU/mL (0.30-0.70)
[2020-12-17 21:04] LABS: INR 1.3; Prothrombin Time 15.4 Seconds (9.4-12.1)
[2020-12-17] MEDS ORDERED: Acetaminophen 325 MG TABLET PO PRN (21:49)
[2020-12-17] MEDS ORDERED: Ondansetron 4 MG/2 ML VIAL IVP PRN (21:49)
[2020-12-17] MEDS ORDERED: *HR* Promethazine 25 MG/ML VIAL IM PRN (21:49)
[2020-12-17] MEDS ORDERED: Naloxone 0.4 MG/ML INJ IVP PRN (21:49)
[2020-12-18] MEDS: Piperacillin/Tazobactam 3.375 GM in 0.9 % Sodium Chloride Mini Bag 100 ML IVPB SCH ×3 (00:28→16:53)
[2020-12-18] MEDS ORDERED: *HR* Dextrose 50 % in Water (Vial) 50 ML VIAL IVP PRN (01:28)
[2020-12-18] MEDS ORDERED: Dextrose Gel 15 GM/37.5 ML TUBE PO PRN ×2 (01:28)
[2020-12-18] MEDS ORDERED: D5% in Water 1,000 ML IVC PRN (01:28)
[2020-12-18] MEDS: *HR* HYDROcodone/Acet 5/325 mg TABLET PO PRN (01:39)
[2020-12-18 03:37] LABS: Mean Corpuscular Volume 100.3 fL (83.0-100.0)
[2020-12-18 03:39] LABS: Basophils # 0.1 K/mcL (0.0-0.2); Basophils % 1.1 %; Eosinophils # 0.3 K/mcL (0.0-0.6); Hematocrit 34.6 % (37.5-50.1); Hemoglobin 10.5 g/dL (12.9-16.9); Immature Granulocytes % 0.5 % (0-4); Immature Platelets 3.2 % (1.1-6.1); Lymphocytes # 0.5 K/mcL (0.6-4.6); Lymphocytes % 8.4 %; Mean Corpuscular HGB Conc 30.3 g/dL (31.6-35.5); Mean Corpuscular Hemoglobin 30.4 pg (28.0-33.3); Mean Platelet Volume 9.4 fL (9.4-12.4); Monocytes # 0.6 K/mcL (0.0-1.3); Monocytes % 10.7 %; Neutrophils # 4.2 K/mcL (1.6-8.9); Red Blood Count 3.45 M/mcL (4.19-5.50); Segmented Neutrophils % 74.3 %; White Blood Count 5.6 K/mcL (4.3-11.1)
[2020-12-18 03:42] LABS: Platelet Count 98 K/mcL (140-400)
[2020-12-18 03:44] LABS: INR 1.4; Prothrombin Time 16.4 Seconds (9.4-12.1)
[2020-12-18 03:55] LABS: BUN/Creatinine Ratio 23 (6-26); Blood Urea Nitrogen 20 mg/dL (8-23); Calcium 9.2 mg/dL (8.6-10.3); Carbon Dioxide 33 mEq/L (23-29); Chloride 97 mEq/L (98-107); Chol/HDL Ratio 4.3 (0-4.9); Cholesterol 98 mg/dL (< 200); Glucose 125 mg/dL (70-105); HDL Cholesterol 23 mg/dL (40-59); LDL Cholesterol,Calculated 64 mg/dL (< 100); Magnesium 1.6 mg/dL (1.6-2.6); Osmolality,Calculated 286 (280-300); Phosphorous 4.4 mg/dL (2.7-4.5); Sodium 136 mEq/L (136-145); Triglycerides 56 mg/dL (< 150); eGFR For African Americans > 60 (> 60); eGFR For Non-African Americans > 60 (> 60)
[2020-12-18] MEDS: Insulin LISPRO 300 UNITS/3 ML VIAL SUBQ SCH ×3 (05:28→18:01)
[2020-12-18] MEDS: *HR* OxyCODONE Immed Rel 5 MG TABLET PO PRN (05:33)
[2020-12-18] MEDS ORDERED: Vancomycin 1,500 MG/265 ML IV.SOLN IVPB SCH (08:00)
[2020-12-18] MEDS: Heparin 25,000UNIT/250ML 1/2NS 25,000 UNIT/250 ML IV.SOLN IVC SCH (10:50)
[2020-12-18] MEDS: Furosemide 40 MG TABLET PO SCH (16:54)
[2020-12-18] MEDS: Lactulose Oral Soln 20 GM/30 ML UDC PO SCH (19:45)
[2020-12-19] MEDS: Piperacillin/Tazobactam 3.375 GM in 0.9 % Sodium Chloride Mini Bag 100 ML IVPB SCH ×4 (00:04→22:28)
[2020-12-19] MEDS: Insulin LISPRO 300 UNITS/3 ML VIAL SUBQ SCH ×4 (00:49→17:03)
[2020-12-19 03:08] LABS: Red Cell Distribution Width 15.9 % (11.5-14.5)
[2020-12-19 03:10] LABS: Basophils # 0.1 K/mcL (0.0-0.2); Basophils % 1.4 %; Eosinophils # 0.4 K/mcL (0.0-0.6); Eosinophils % 7.7 %; Hematocrit 33.8 % (37.5-50.1); Hemoglobin 10.1 g/dL (12.9-16.9); Immature Granulocytes % 1.4 % (0-4); Immature Platelets 2.5 % (1.1-6.1); Lymphocytes # 0.5 K/mcL (0.6-4.6); Lymphocytes % 10.1 %; Mean Corpuscular HGB Conc 29.9 g/dL (31.6-35.5); Mean Corpuscular Hemoglobin 29.7 pg (28.0-33.3); Mean Corpuscular Volume 99.4 fL (83.0-100.0); Mean Platelet Volume 9.1 fL (9.4-12.4); Monocytes # 0.7 K/mcL (0.0-1.3); Monocytes % 13.3 %; Neutrophils # 3.3 K/mcL (1.6-8.9); Platelet Count 102 K/mcL (140-400); Segmented Neutrophils % 66.1 %
[2020-12-19 03:26] LABS: Alanine Aminotransferase 10 Units/L (7-52); Albumin 3.8 g/dL (3.5-5.7); Albumin/Globulin Ratio 1.3 (1.1-2.2); Alkaline Phosphatase 72 Units/L (34-104); Aspartate Amino Transferase 19 Units/L (13-39); BUN/Creatinine Ratio 33 (6-26); Bilirubin,Total 1.1 mg/dL (0.3-1.0); Blood Urea Nitrogen 27 mg/dL (8-23); Carbon Dioxide 34 mEq/L (23-29); Chloride 94 mEq/L (98-107); Glucose 120 mg/dL (70-105); Osmolality,Calculated 288 (280-300); Potassium 3.9 mEq/L (3.5-5.1); Sodium 136 mEq/L (136-145); Total Protein 6.8 g/dL (6.4-8.9); eGFR For African Americans > 60 (> 60); eGFR For Non-African Americans > 60 (> 60)
[2020-12-19] MEDS: Lactulose Oral Soln 20 GM/30 ML UDC PO SCH ×2 (09:38→22:27)
[2020-12-19] MEDS: Isosorbide MONOnitrate (24 HR) 60 MG TAB.ER.24H PO SCH (09:39)
[2020-12-19] MEDS: Furosemide 40 MG TABLET PO SCH ×2 (09:39→16:14)
[2020-12-19] MEDS: FLUoxetine 20 MG CAPSULE PO SCH (09:39)
[2020-12-19] MEDS ORDERED: Vancomycin 1,000 MG, Sodium Chloride IRRigation 1,000 ML IR ONE (13:45)
[2020-12-19] MEDS: *HR* HYDROcodone/Acet 5/325 mg TABLET PO PRN (18:20)
[2020-12-19] MEDS ORDERED: Insulin LISPRO 300 UNITS/3 ML VIAL SUBQ SCH (21:00)
[2020-12-19] MEDS: *HR* OxyCODONE Immed Rel 5 MG TABLET PO PRN (22:28)
[2020-12-20 01:10] LABS: Hematocrit 31.2 % (37.5-50.1); Hemoglobin 9.5 g/dL (12.9-16.9); Immature Platelets 2.7 % (1.1-6.1); Mean Corpuscular HGB Conc 30.4 g/dL (31.6-35.5); Mean Corpuscular Hemoglobin 30.2 pg (28.0-33.3); Mean Platelet Volume 9.2 fL (9.4-12.4); Red Blood Count 3.15 M/mcL (4.19-5.50); White Blood Count 5.5 K/mcL (4.3-11.1)
[2020-12-20 01:32] LABS: Alanine Aminotransferase 11 Units/L (7-52); Albumin 3.8 g/dL (3.5-5.7); Albumin/Globulin Ratio 1.4 (1.1-2.2); Alkaline Phosphatase 66 Units/L (34-104); Aspartate Amino Transferase 23 Units/L (13-39); BUN/Creatinine Ratio 29 (6-26); Bilirubin,Direct 0.5 mg/dL (0.0-0.2); Bilirubin,Indirect 0.8 mg/dL (0.0-1.0); Bilirubin,Total 1.3 mg/dL (0.3-1.0); Blood Urea Nitrogen 23 mg/dL (8-23); Calcium 9.4 mg/dL (8.6-10.3); Carbon Dioxide 34 mEq/L (23-29); Chloride 95 mEq/L (98-107); Globulin 2.8 g/dL (2.4-3.5); Glucose 131 mg/dL (70-105); Osmolality,Calculated 289 (280-300); Potassium 3.8 mEq/L (3.5-5.1); Sodium 137 mEq/L (136-145); Total Protein 6.6 g/dL (6.4-8.9); eGFR For African Americans > 60 (> 60); eGFR For Non-African Americans > 60 (> 60)
[2020-12-20] MEDS: Lactulose Oral Soln 20 GM/30 ML UDC PO SCH (07:37)
[2020-12-20] MEDS: Isosorbide MONOnitrate (24 HR) 60 MG TAB.ER.24H PO SCH (07:38)
[2020-12-20] MEDS: Furosemide 40 MG TABLET PO SCH (07:39)
[2020-12-20] MEDS: *HR* OxyCODONE Immed Rel 5 MG TABLET PO PRN (07:39)
[2020-12-20] MEDS: FLUoxetine 20 MG CAPSULE PO SCH (07:39)
[2020-12-20] MEDS: Piperacillin/Tazobactam 3.375 GM in 0.9 % Sodium Chloride Mini Bag 100 ML IVPB SCH (07:39)
[2020-12-20] MEDS: Insulin LISPRO 300 UNITS/3 ML VIAL SUBQ SCH ×2 (07:52→12:14)
[2020-12-20 07:53] VITALS: BP 123/69
== END 2020-12-20 15:40 | disposition critical access hospital (66) | DRG 300 ==
LOC: 3ANU 14:39 → EMEROOARM 14:39 → SUATTDRO 20:24 → 3ANU 21:19
PROVIDERS: ADMIT Internal Medicine; ATTEND Internal Medicine

== ENCOUNTER 2021-01-06 15:17 | Inpatient (IN) ==
[2021-01-06] MEDS ORDERED: Naloxone 0.4 MG/ML INJ IVP PRN (17:50)
[2021-01-06] MEDS ORDERED: Ondansetron 4 MG/2 ML VIAL IVP PRN (17:50)
[2021-01-06] MEDS ORDERED: Furosemide 20 MG/2 ML VIAL IVP SCH (17:52)
[2021-01-06] MEDS ORDERED: Dextrose Gel 15 GM/37.5 ML TUBE PO PRN ×2 (17:53)
[2021-01-06] MEDS ORDERED: D5% in Water 1,000 ML IVC PRN (17:53)
[2021-01-06] MEDS ORDERED: *HR* Dextrose 50 % in Water (Vial) 50 ML VIAL IVP PRN (17:53)
[2021-01-06] MEDS ORDERED: Ipratropium/Albuterol Neb 3 ML IH PRN (17:55)
[2021-01-06] MEDS ORDERED: Nitroglycerin 0.4 MG TAB.SUBL SL PRN (18:24)
[2021-01-06] MEDS: Furosemide 40 MG/4 ML VIAL IVP SCH (18:48)
[2021-01-07 02:23] LABS: Hemoglobin 10.5 g/dL (12.9-16.9); Immature Granulocytes % 1.1 % (0-4); Mean Corpuscular Volume 96.6 fL (83.0-100.0)
[2021-01-07 02:25] LABS: Basophils # 0.1 K/mcL (0.0-0.2); Basophils % 0.9 %; Eosinophils # 0.3 K/mcL (0.0-0.6); Eosinophils % 4.9 %; Hematocrit 33.8 % (37.5-50.1); Lymphocytes # 0.4 K/mcL (0.6-4.6); Lymphocytes % 7.9 %; Mean Corpuscular HGB Conc 31.1 g/dL (31.6-35.5); Mean Platelet Volume 9.1 fL (9.4-12.4); Monocytes # 0.7 K/mcL (0.0-1.3); Monocytes % 11.9 %; Neutrophils # 4.1 K/mcL (1.6-8.9); Red Cell Distribution Width 16.4 % (11.5-14.5); Segmented Neutrophils % 73.3 %; White Blood Count 5.6 K/mcL (4.3-11.1)
[2021-01-07 02:35] LABS: Platelet Count 98 K/mcL (140-400)
[2021-01-07 02:41] LABS: BUN/Creatinine Ratio 14 (6-26); Blood Urea Nitrogen 13 mg/dL (8-23); Calcium 8.8 mg/dL (8.6-10.3); Carbon Dioxide 34 mEq/L (23-29); Chloride 94 mEq/L (98-107); Glucose 121 mg/dL (70-105); Magnesium 1.6 mg/dL (1.6-2.6); Osmolality,Calculated 279 (280-300); Phosphorous 3.6 mg/dL (2.7-4.5); Potassium 3.9 mEq/L (3.5-5.1); Sodium 134 mEq/L (136-145); eGFR For African Americans > 60 (> 60); eGFR For Non-African Americans > 60 (> 60)
[2021-01-07] MEDS: Insulin LISPRO 300 UNITS/3 ML VIAL SUBQ SCH ×3 (07:44→16:41)
[2021-01-07] MEDS: FLUoxetine 20 MG CAPSULE PO SCH (07:59)
[2021-01-07] MEDS: Isosorbide MONOnitrate (24 HR) 60 MG TAB.ER.24H PO SCH (07:59)
[2021-01-07] MEDS: Furosemide 40 MG/4 ML VIAL IVP SCH (08:00)
[2021-01-07] MEDS ORDERED: Spironolactone 25 MG TABLET PO SCH (09:00)
[2021-01-07] MEDS: Albumin 25% 25gram/100mL 25 GM/100 ML IV.SOLN IVPB SCH ×2 (16:02→23:32)
[2021-01-07] MEDS: Bumetanide 1 MG/4 ML VIAL IVP SCH (16:02)
[2021-01-07 17:34] LABS: RBC,Peritoneal Fluid 56000 RBC/mcL
[2021-01-07 17:42] LABS: Total Protein,Peritoneal Fluid 2.4 g/dL
[2021-01-07 17:55] LABS: Appearance of Peritoneal Fl BLOODY (Clear); Basophils,Peritoneal Fluid 0 %; Eosinophils,Peritoneal Fluid 0 %
[2021-01-08] MEDS: Insulin LISPRO 300 UNITS/3 ML VIAL SUBQ SCH ×3 (08:19→16:13)
[2021-01-08 08:38] LABS: Hematocrit 31.2 % (37.5-50.1); Hemoglobin 9.7 g/dL (12.9-16.9); Immature Platelets 2.5 % (1.1-6.1); Mean Corpuscular HGB Conc 31.1 g/dL (31.6-35.5); Mean Corpuscular Hemoglobin 29.8 pg (28.0-33.3); Mean Platelet Volume 9.3 fL (9.4-12.4); Red Blood Count 3.25 M/mcL (4.19-5.50); Red Cell Distribution Width 16.1 % (11.5-14.5); White Blood Count 5.2 K/mcL (4.3-11.1)
[2021-01-08 08:43] LABS: BUN/Creatinine Ratio 18 (6-26); Blood Urea Nitrogen 14 mg/dL (8-23); Calcium 8.9 mg/dL (8.6-10.3); Carbon Dioxide 31 mEq/L (23-29); Chloride 93 mEq/L (98-107); Glucose 120 mg/dL (70-105); Osmolality,Calculated 274 (280-300); Potassium 4.1 mEq/L (3.5-5.1); Sodium 131 mEq/L (136-145); eGFR For African Americans > 60 (> 60); eGFR For Non-African Americans > 60 (> 60)
[2021-01-08] MEDS: Bumetanide 1 MG/4 ML VIAL IVP SCH (09:24)
[2021-01-08] MEDS: FLUoxetine 20 MG CAPSULE PO SCH (09:24)
[2021-01-08] MEDS: Isosorbide MONOnitrate (24 HR) 60 MG TAB.ER.24H PO SCH (09:24)
[2021-01-08 10:59] LABS: Alanine Aminotransferase 7 Units/L (7-52); Albumin 3.9 g/dL (3.5-5.7); Albumin/Globulin Ratio 1.4 (1.1-2.2); Alkaline Phosphatase 77 Units/L (34-104); Aspartate Amino Transferase 16 Units/L (13-39); Bilirubin,Direct 0.5 mg/dL (0.0-0.2); Bilirubin,Indirect 1.1 mg/dL (0.0-1.0); Bilirubin,Total 1.6 mg/dL (0.3-1.0); Globulin 2.7 g/dL (2.4-3.5); Total Protein 6.6 g/dL (6.4-8.9)
[2021-01-08] MEDS: cefTRIAXone 2,000 MG in Water for inj. (sterile) 20 ML IVP SCH (11:29)
[2021-01-08] MEDS: Bumetanide 1 MG TABLET PO SCH (16:17)
[2021-01-09 01:33] LABS: Hematocrit 31.6 % (37.5-50.1); Hemoglobin 9.8 g/dL (12.9-16.9); Immature Platelets 2.5 % (1.1-6.1); Mean Corpuscular Hemoglobin 29.6 pg (28.0-33.3); Mean Corpuscular Volume 95.5 fL (83.0-100.0); Mean Platelet Volume 9.3 fL (9.4-12.4); Red Blood Count 3.31 M/mcL (4.19-5.50); Red Cell Distribution Width 15.9 % (11.5-14.5); White Blood Count 5.1 K/mcL (4.3-11.1)
[2021-01-09 01:40] LABS: INR 1.5; Prothrombin Time 16.9 Seconds (9.4-12.1)
[2021-01-09 01:51] LABS: Albumin 3.8 g/dL (3.5-5.7); Albumin/Globulin Ratio 1.4 (1.1-2.2); Bilirubin,Direct 0.3 mg/dL (0.0-0.2); Bilirubin,Indirect 0.6 mg/dL (0.0-1.0); Bilirubin,Total 0.9 mg/dL (0.3-1.0); Globulin 2.8 g/dL (2.4-3.5); Total Protein 6.6 g/dL (6.4-8.9)
[2021-01-09 01:54] LABS: BUN/Creatinine Ratio 18 (6-26); Blood Urea Nitrogen 14 mg/dL (8-23); Calcium 8.7 mg/dL (8.6-10.3); Carbon Dioxide 32 mEq/L (23-29); Chloride 92 mEq/L (98-107); Glucose 122 mg/dL (70-105); Osmolality,Calculated 274 (280-300); Potassium 3.9 mEq/L (3.5-5.1); Sodium 131 mEq/L (136-145); eGFR For African Americans > 60 (> 60); eGFR For Non-African Americans > 60 (> 60)
[2021-01-09] MEDS: Isosorbide MONOnitrate (24 HR) 60 MG TAB.ER.24H PO SCH (09:01)
[2021-01-09] MEDS: Insulin LISPRO 300 UNITS/3 ML VIAL SUBQ SCH ×3 (09:01→15:54)
[2021-01-09] MEDS: Bumetanide 1 MG TABLET PO SCH ×2 (09:01→16:33)
[2021-01-09] MEDS: FLUoxetine 20 MG CAPSULE PO SCH (09:01)
[2021-01-09 10:45] VITALS: BP 125/66
[2021-01-09] MEDS: cefTRIAXone 2,000 MG in Water for inj. (sterile) 20 ML IVP SCH (10:57)
[2021-01-09 23:52] LABS: Fluid Source for Albumin PERITONEAL
== END 2021-01-09 18:08 | disposition home health service (06) | DRG 432 ==
LOC: 2ANU → SUATTDRO 17:41 → UNDODISOB 01-07 14:30
PROVIDERS: ADMIT Internal Medicine; ATTEND Family Medicine